=== PATIENT | male | born 1990 | race Caucasian/White ===

== ENCOUNTER → 2020-02-23 | Outpatient (CLI) | payer MEDICAID ==
--- NOTE | 2020-02-23 17:07 | CONS ---
CONSULTATION DATE OF SERVICE: 02/23/2020 A 29-year-old gentleman who has been evaluated in the [facility] for possible obstructive sleep apnea-hypopnea syndrome. HISTORY OF PRESENT ILLNESS/SLEEP WAKE EVALUATION: Patient usual sleep schedule from 10 p.m. to 8:15 am during the weekdays and on weekends from around 11 p.m. until 9 am. Sometimes he has problems with falling asleep, although no TV in bedroom. He usually sleeps on the side position. He snores loudly and has witnessed episodes of stopped breathing during sleep. He also wakes up from sleep with episodes of gasping for air. Usually, he wakes up from sleep up to 3 times. In the morning, patient wakes up tired, has episodes of irritability. [place] Sleepiness Scale is 8. Usually he does not take any naps. During the night, patient also mentioned that he has kicking with his legs. No episodes of hypnagogic hallucinations, sleep paralysis or cataplexy. PAST MEDICAL HISTORY: Positive for asthma, acid reflux. SOCIAL HISTORY: Positive for smoking, half pack a day for about 3 years, quit in 2007. Alcohol consumption occasional. FAMILY HISTORY: Sleep apnea by his father. REVIEW OF SYSTEMS: Multiple awakenings from sleep, snoring. MEDICATIONS: QVAR, inhalers. PHYSICAL EXAM: gentleman without distress, BP 110/80, HR 98, RR 15, height 5, 11, weight 242, BMI 33.7, temperature 98.5, oxygen saturation at room air 95%. OROPHARYNX: Low position of soft palate, Mallampati 3-4, wide neck 17 inches in circumference. ABDOMEN: Slightly obese. NECK: Supple, no JVD. Thyroid is not palpable. LUNGS: Clear to percussion and to auscultation. Good air exchange. No wheezing or rhonchi. HEART: S1, S2 regular. No murmurs, gallops, or rubs. EXTREMITIES: No clubbing or cyanosis. RUG SAMPLE BEVELER: Awake, alert, and oriented X3. Cranial nerves 2 to 7 intact. There is no fasciculation or atrophy. noted. No focal deficits observed. IMPRESSION: 1. Snoring, witnessed episodes of stopped breathing during the sleep, awakenings from sleep with gasping for air. Low position of soft palate, wide neck. Obstructive sleep apnea-hypopnea syndrome. 2. Mild obesity, BMI 33.7. 3. Asthma. 4. Acid reflux. 5. History of restless leg symptoms. 6. History of kicking during the sleep. Possible periodic limb movements. 7. Status post tonsillectomy. 8. Status post adenoidectomy. PLAN: 1. Polysomnography for evaluation of patient's breathing during sleep. 2. CPAP/BiPAP titration if sleep study confirms obstructive sleep apnea-hypopnea syndrome. 3. Preferable position during sleep on the side. 4. No driving if patient feels any sleepiness. 5. I will see patient for follow up visit to explain results of testing and following plan. Thank you very much for referring this patient for consultation. Sincerely, Jagjit Reece MD, PhD, FAASM Diplomat of [employer] [employer] [place] [employer] Con[employer]or Technician of [facility] [place] [id number] / BLADE: [id number] /
== END | disposition home or self-care (01) ==
LOC: SLEEP 15:51
PROVIDERS: ATTEND Internal Medicine
DX: G47.33 Obstructive sleep apnea (adult) (pediatric) (principal); J45.909 Unspecified asthma, uncomplicated; K21.9 Gastro-esophageal reflux disease without esophagitis; G25.81 Restless legs syndrome; E66.9 Obesity, unspecified; Z68.33 Body mass index [BMI] 33.0-33.9, adult; Z98.890 Other specified postprocedural states; Z90.09 Acquired absence of other part of head and neck; Z79.51 Long term (current) use of inhaled steroids; Z99.89 Dependence on other enabling machines and devices
CPT/HCPCS: 99211

== ENCOUNTER → 2020-03-08 | Outpatient (CLI) | payer MEDICAID | END | disposition home or self-care (01) | LOC: LABWHC1 16:38 | PROVIDERS: ATTEND Nurse Practitioner Family | DX: Z53.9 Procedure and treatment not carried out, unspecified reason (principal) | CPT/HCPCS: U0003; C9803 ==

== ENCOUNTER → 2020-08-23 | Outpatient (CLI) | payer MEDICAID ==
--- NOTE | 2020-08-23 14:44 | US ---
EXAMINATION TYPE: US scrotum with doppler. Grayscale and color Doppler Duplex imaging performed of t he scrotum. DATE OF EXAM: 08/23/2020 COMPARISON: NONE CLINICAL HISTORY: N50.811 Rt testicular pain. EXAM MEASUREMENTS: TESTICLES: Right Testicle: 4.8 x 2.5 x 3.4 cm Left Testicle: 4.6 x 2.3 x 3.3 cm EPIDIDYMIS HEAD: Right Epididymis: 0.9 cm, 2 small cysts noted, largest measuring 2mm. These are most suggestive of e pididymal head cysts or spermatoceles. Left Epididymis: 0.8 cm Doppler performed to assess for testicular vascularity; good bilateral color flow and waveforms are s een. There is no evidence of testicular torsion. Presence of hydroceles: No Presence of varicoceles: No IMPRESSION: 1. At least 2 right tiny epididymal head cyst versus pneumatoceles. 2. No evidence of testicular torsion, epididymitis, or orchitis.
== END | disposition home or self-care (01) ==
LOC: RADUSWWP 10:21
PROVIDERS: ATTEND Family Medicine
DX: N50.811 Right testicular pain (principal)
CPT/HCPCS: 76870; 93975

== ENCOUNTER 2021-10-04 07:33 | Inpatient (IN) | payer MEDICAID, OTHER ==
[2021-10-04] MEDS ORDERED: SODIUM CHLORIDE 0.9% 500 ML 500 ML IV ONE (08:24)
[2021-10-04] MEDS ORDERED: SODIUM CHLORIDE 0.9% 1,000 ML IV ONE (08:24)
[2021-10-04 09:11] LABS: Basophils % (A) 0 %; Eosinophils # (A) 0.2 k/uL (0-0.7); Eosinophils % (A) 2 %; HCT 44.5 % (39.0-53.0); HGB 15.6 gm/dL (13.0-17.5); Lymphocytes # (A) 2.2 k/uL (1.0-4.8); Lymphocytes % (A) 19 %; MCH 31.1 pg (25.0-35.0); MCV 88.9 fL (80.0-100.0); Mean Platelet Volume 7.4; Monocytes # (A) 0.8 k/uL (0-1.0); Monocytes % (A) 7 %; Neutrophils # (A) 8.2 k/uL (1.3-7.7); Neutrophils % (A) 71 %; Platelet Count 344 k/uL (150-450); RDW 11.7 % (11.5-15.5); WBC 11.5 k/uL (3.8-10.6)
[2021-10-04 09:13] LABS: African American GFR (CKD) >90 (>60 ml/min/1.73 sqM); Anion Gap 13 mmol/L; Blood Urea Nitrogen 21 mg/dL (9-20); Calcium 9.4 mg/dL (8.4-10.2); Carbon Dioxide 22 mmol/L (22-30); Chloride 103 mmol/L (98-107); Glucose 101 mg/dL (74-99); Non-African American GFR(CKD) >90 (>60 ml/min/1.73 sqM); Sodium 138 mmol/L (137-145)
[2021-10-04 09:27] LABS: Potassium 4.7 mmol/L (3.5-5.1)
--- NOTE | 2021-10-04 09:44 | CT ---
EXAMINATION TYPE: CT pelvis w con DATE OF EXAM: 10/04/2021 INDICATION: Rectal pain CT DLP: 1481.8 mGy.cm Automated Exposure Control for Dose Reduction was Utilized. TECHNIQUE AND CONTRAST: CT scan of the pelvis is performed with IV Contrast, patient injected with 100 mL of Isovue 300. COMPARISON: No previous CT scan is available for comparison FINDINGS: Marginally enhancing fluid density seen inseparable from the anus measuring 16 x 23 x 20 mm which cou ld represent a small perianal abscess, suboptimally assessed by this CT scan. Further MRI assessment can be considered. Mild wall thickening of the rectum, nonspecific. Millimetric perirectal lymph nodes, nonspecific. Sma ll rectal lesion cannot be excluded. Grossly unremarkable remainder of the colon. No small bowel obst ruction. Suspected hepatic steatosis. Unremarkable visualized portion of the gallbladder, spleen, pancreas, ki dneys, abdominal aorta and IVC. Unremarkable prostate and seminal vesicles. The urinary bladder is not distended. No pelvic free fluid. No aggressive bone lesion. IMPRESSION: Suspected perianal abscess as described above, please correlate clinically. Further MRI assessment ca n be considered if clinically required.
--- NOTE | 2021-10-04 10:29 | ED ---
General Adult HPI - General Chief complaint: Recheck/Abnormal Lab/Rx Stated complaint: Pain Time Seen by Provider: 10/04/21 07:55 Source: patient, RN notes reviewed Mode of arrival: ambulatory Limitations: no limitations - History of Present Illness Initial comments: 31-year-old male presents emergency department chief complaint of rectal pain. Patient states that he has been constipated recently secondary pain meds from compression fracture T9. Patient states that he had to push to have bowel movement states he felt like something was protruding. States he has normal hemorrhoids but states this felt much worse. He states he has deep rectal pain. Patient states that this is very uncomfortable. Patient states he tried some hemorrhoid cream as is using the past states that this made it worse initially. Patient denies any difficulty urinating. Patient has a fevers. - Related Data Allergies Allergy/AdvReac Type Severity Reaction Status Date / Time cefprozil [From Cefzil] AdvReac Rash/Hives Verified 10/04/21 07:43 Sulfa (Sulfonamide AdvReac Rash/Hives Verified 10/04/21 07:43 Antibiotics) Review of Systems ROS Statement: Those systems with pertinent positive or pertinent negative responses have been documented in the HPI. ROS Other: All systems not noted in ROS Statement are negative. Past Medical History Additional Past Medical History / Comment(s): T9 compression fracture Past Surgical History: Adenoidectomy, Orthopedic Surgery, Tonsillectomy Past Psychological History: No Psychological Hx Reported Smoking Status: Never smoker Past Alcohol Use History: Occasional Past Drug Use History: None Reported General Exam Limitations: no limitations General appearance: alert, in no apparent distress Head exam: Present: atraumatic, normocephalic, normal inspection Eye exam: Present: normal appearance, PERRL, EOMI. Absent: scleral icterus, conjunctival injection, periorbital swelling ENT exam: Present: normal exam, normal oropharynx, mucous membranes moist Neck exam: Present: normal inspection, full ROM. Absent: tenderness, meningismus, lymphadenopathy Respiratory exam: Present: normal lung sounds bilaterally. Absent: respiratory distress, wheezes, rales, rhonchi, stridor Cardiovascular Exam: Present: regular rate, normal rhythm, normal heart sounds. Absent: systolic murmur, diastolic murmur, rubs, gallop, clicks GI/Abdominal exam: Present: soft, normal bowel sounds. Absent: distended, tenderness, guarding, rebound, rigid Course Vital Signs 10/04/21 10/04/21 07:35 10:32 Temperature 98.2 F Pulse Rate 117 H 70 Respiratory 20 16 Rate Blood Pressure 143/88 124/74 O2 Sat by Pulse 96 99 Oximetry Medical Decision Making - Medical Decision Making Patient CT shows evidence of. No abscess. There is no drainable site at this time. Patient started on IV antibiotics. - Lab Data Result diagrams: 10/04/21 08:52 10/04/21 08:52 Lab Results 10/04/21 10/04/21 10/04/21 Range/Units 08:52 08:52 08:52 WBC 11.5 H (3.8-10.6) k/uL RBC 5.00 (4.30-5.90) m/uL Hgb 15.6 (13.0-17.5) gm/dL Hct 44.5 (39.0-53.0) % MCV 88.9 (80.0-100.0) fL MCH 31.1 (25.0-35.0) pg MCHC 35.0 (31.0-37.0) g/dL RDW 11.7 (11.5-15.5) % Plt Count 344 (150-450) k/uL MPV 7.4 Neutrophils % 71 % Lymphocytes % 19 % Monocytes % 7 % Eosinophils % 2 % Basophils % 0 % Neutrophils # 8.2 H (1.3-7.7) k/uL Lymphocytes # 2.2 (1.0-4.8) k/uL Monocytes # 0.8 (0-1.0) k/uL Eosinophils # 0.2 (0-0.7) k/uL Basophils # 0.0 (0-0.2) k/uL Sodium 138 (137-145) mmol/L Potassium 4.7 (3.5-5.1) mmol/L Chloride 103 (98-107) mmol/L Carbon Dioxide 22 (22-30) mmol/L Anion Gap 13 mmol/L BUN 21 H (9-20) mg/dL Creatinine 0.72 (0.66-1.25) mg/dL Est GFR (CKD-EPI)AfAm >90 (>60 ml/min/1.73 sqM) Est GFR (CKD-EPI)NonAf >90 (>60 ml/min/1.73 sqM) Glucose 101 H (74-99) mg/dL Plasma Lactic Acid Michael 1.5 (0.7-2.0) mmol/L Calcium 9.4 (8.4-10.2) mg/dL Disposition Clinical Impression: Perianal abscess Disposition: ADMITTED IP TO THIS HOSP Condition: Fair Referrals: Dulce Wynne MD [Primary Care Provider] - 1-2 days Time of Disposition: 10:39
[2021-10-04] MEDS ORDERED: NALOXONE 0.4 MG/ML 1 ML VIAL IV PRN (10:41)
[2021-10-04] MEDS ORDERED: ONDANSETRON 4 MG/2 ML VIAL IVP PRN (10:41)
[2021-10-04] MEDS ORDERED: PIPERACILLIN-TAZOBACTAM 3.375 GM in SODIUM CHLORIDE 0.9% 100 ML IVPB STA (10:41)
[2021-10-04] MEDS: HYDROcodone/APAP 5-325MG 1 EACH TAB PO PRN ×3 (12:31→22:07)
[2021-10-04] MEDS: SODIUM CHLORIDE 0.9% 1,000 ML IV SCH (12:32)
--- NOTE | 2021-10-04 13:57 | P.GSHP ---
History of Present Illness H&P Date: 10/04/21 CHIEF COMPLAINT: Perianal abscess HISTORY OF PRESENT ILLNESS: This is a 31-year-old male who presented to the hospital after 4 days of pain around the perirectal area. He initially thought it was hemorrhoids due to him being constipated and being pain medication. But she had no improvement with the hemorrhoid cream. Computed tomography scan pelvis suspected perianal abscess measuring 16 x 23 x 20 mm. Patient reports no drainage from the abscess. Denies any fever chills or sweats. He has never had a perianal abscess 4. He was tachycardic on admission white count 11.5. Currently on antibiotics. PAST MEDICAL HISTORY: T9 compression fracture PAST SURGICAL HISTORY: See list. MEDICATIONS: See list. ALLERGIES: See list. SOCIAL HISTORY: No illicit drug use. REVIEW OF SYSTEMS: CONSTITUTIONAL: Denies fever or chills. HEENT: Denies blurred vision, vision changes, or eye pain. Denies hemoptysis CARDIOVASCULAR: Denies chest pain or pressure. RESPIRATORY: No shortness of breath. GASTROINTESTINAL: Denies abdominal pain. HEMATOLOGIC: Denies bleeding disorders. GENITOURINARY: Denies any blood in urine or increased urinary frequency. SKIN: Denies pruitis. Denies rash. PHYSICAL EXAM: VITAL SIGNS: Reviewed GENERAL: Well-developed in no acute distress. HEENT: No sclera icterus. Extraocular movements grossly intact. Moist buccal mucosa. Head is atraumatic, normocephalic. No nasal drainage. ABDOMEN: Soft. Nondistended. Nontender. Patient has tenderness with palpa tion of the perianal area. It is soft. There is inflammation noted at the anterior aspect of the anus. No drainage. No fluctuance noted. Area is moist. NEUROLOGIC: Alert and oriented. Cranial nerves II through XII grossly intact. LABORATORY DATA: WBC 11.5 Hgb 15.6 platelets 344 Sodium 138 potassium 4.7 creatinine 0.72 lactic acid 1.5 IMAGING: Computed tomography scan results as stated above. ASSESSMENT: 1. Perianal abscess PLAN: -Continue to observe -Continue IV antibiotics -Continue pain medication as needed -Continue regular diet -Continue IV fluids Physician [employer] note has been reviewed by physician. Signing provider agrees with the documented findings, assessment, and plan of care. Past Medical History Additional Past Medical History / Comment(s): T9 compression fracture Past Surgical History: Adenoidectomy, Orthopedic Surgery, Tonsillectomy Past Psychological History: No Psychological Hx Reported Smoking Status: Never smoker Past Alcohol Use History: Occasional Past Drug Use History: None Reported Medications and Allergies Home Medications Medication Instructions Recorded Confirmed Type Albuterol Sulfate [Albuterol 2 puff INHALATION RT-Q4H PRN 10/04/21 10/04/21 History Sulfate Hfa] Cyclobenzaprine [Flexeril] 10 mg PO BID PRN 10/04/21 10/04/21 History Hydrocodone/Acetaminophen 1 tab PO Q4H PRN 10/04/21 10/04/21 History [Hydrocodone/Acetaminophen 7.5-325] Ibuprofen [Motrin] 800 mg PO Q8H PRN 10/04/21 10/04/21 History Ketorolac Tromethamine 10 mg PO QID PRN MDD MAX 40mg per 10/04/21 10/04/21 History day/ 5 days durat Lidocaine 5% Patch [Lidoderm] 1 patch TOPICAL DAILY 10/04/21 10/04/21 History Phenyleph/Pramoxin/Glycr/W.pet 1 applic RECTAL QID PRN 10/04/21 10/04/21 History [Preparation H Cream] Sennosides [Senokot] 8.6 mg PO DAILY PRN 10/04/21 10/04/21 History diazePAM [Valium] 5 mg PO TID PRN 10/04/21 10/04/21 History Allergies Allergy/AdvReac Type Severity Reaction Status Date / Time cefprozil [From Cefzil] Allergy Rash/Hives Verified 10/04/21 11:31 Sulfa (Sulfonamide Allergy Rash/Hives Verified 10/04/21 11:31 Antibiotics) Surgical - Exam Vital Signs Temp Pulse Resp BP Pulse Ox 98.2 F 117 H 20 143/88 96 10/04/21 07:35 10/04/21 07:35 10/04/21 07:35 10/04/21 07:35 10/04/21 07:35 Results - Labs 10/04/21 08:52 10/04/21 08:52 Abnormal Lab Results - Last 24 Hours (Table) 10/04/21 10/04/21 Range/Units 08:52 08:52 WBC 11.5 H (3.8-10.6) k/uL Neutrophils # 8.2 H (1.3-7.7) k/uL BUN 21 H (9-20) mg/dL Glucose 101 H (74-99) mg/dL Diabetes panel 10/04/21 Range/Units 08:52 Sodium 138 (137-145) mmol/L Potassium 4.7 (3.5-5.1) mmol/L Chloride 103 (98-107) mmol/L Carbon Dioxide 22 (22-30) mmol/L BUN 21 H (9-20) mg/dL Creatinine 0.72 (0.66-1.25) mg/dL Glucose 101 H (74-99) mg/dL Calcium 9.4 (8.4-10.2) mg/dL Calcium panel 10/04/21 Range/Units 08:52 Calcium 9.4 (8.4-10.2) mg/dL Pituitary panel 10/04/21 Range/Units 08:52 Sodium 138 (137-145) mmol/L Potassium 4.7 (3.5-5.1) mmol/L Chloride 103 (98-107) mmol/L Carbon Dioxide 22 (22-30) mmol/L BUN 21 H (9-20) mg/dL Creatinine 0.72 (0.66-1.25) mg/dL Glucose 101 H (74-99) mg/dL Calcium 9.4 (8.4-10.2) mg/dL Adrenal panel 10/04/21 Range/Units 08:52 Sodium 138 (137-145) mmol/L Potassium 4.7 (3.5-5.1) mmol/L Chloride 103 (98-107) mmol/L Carbon Dioxide 22 (22-30) mmol/L BUN 21 H (9-20) mg/dL Creatinine 0.72 (0.66-1.25) mg/dL Glucose 101 H (74-99) mg/dL Calcium 9.4 (8.4-10.2) mg/dL
[2021-10-04] MEDS: PIPERACILLIN-TAZOBACTAM 3.375 GM in SODIUM CHLORIDE 0.9% 100 ML IVPB SCH (17:10)
[2021-10-04] MEDS: HYDROmorphone 0.5 MG/0.5 ML SYRINGE IVP PRN (18:23)
[2021-10-04] MEDS: DOCUSATE 100 MG CAP PO SCH (22:08)
[2021-10-05] MEDS: PIPERACILLIN-TAZOBACTAM 3.375 GM in SODIUM CHLORIDE 0.9% 100 ML IVPB SCH ×3 (01:15→16:16)
[2021-10-05] MEDS: HYDROmorphone 0.5 MG/0.5 ML SYRINGE IVP PRN ×2 (04:09→07:50)
[2021-10-05] MEDS: SODIUM CHLORIDE 0.9% 1,000 ML IV SCH ×2 (07:44→07:55)
[2021-10-05] MEDS: DOCUSATE 100 MG CAP PO SCH ×2 (07:51→19:42)
[2021-10-05 08:46] LABS: Basophils # (A) 0.03 X 10*3/uL (0.00-0.10); Basophils % (A) 0.3 %; Eosinophils # (A) 0.08 X 10*3/uL (0.04-0.35); Eosinophils % (A) 0.7 %; HCT 38.9 % (39.6-50.0); HGB 12.9 g/dL (13.0-17.0); Immature Grans, Automated 0.4 %; Lymphocytes # (A) 1.69 X 10*3/uL (0.90-5.00); MCH 29.3 pg (27.0-32.0); MCHC 33.2 g/dL (32.0-37.0); MCV 88.2 fL (80.0-97.0); Mean Platelet Volume 9.9 fL (9.5-12.2); Monocytes # (A) 0.81 X 10*3/uL (0.20-1.00); Monocytes % (A) 7.2 %; NRBC Per 100 WBC 0 /100 WBCS (0.0-0.0); Neutrophils % (A) 76.4 %; Platelet Count 288 X 10*3/uL (140-440); RBC 4.41 X 10*6/uL (4.40-5.60); RDW 11.3 % (11.5-14.5); WBC 11.25 X 10*3/uL (4.50-10.00)
[2021-10-05 08:50] LABS: BUN/Creat Ratio 13.88 Ratio (12.00-20.00); Blood Urea Nitrogen 11.1 mg/dL (9.0-27.0); Calcium 8.9 mg/dL (8.7-10.3); Non-African American GFR(CKD) 117.4 (60.0-200.0); Potassium 4.3 mmol/L (3.5-5.5)
[2021-10-05] MEDS ORDERED: HYDROmorphone 0.5 MG/0.5 ML SYRINGE IVP PRN (10:26)
--- NOTE | 2021-10-05 10:52 | P.PN ---
Progress Note - Text Progress Note Date: 10/05/21 The patient some complaints of intermittent pain. He says most the time that he feels comfortable however the pain does create some pressure in his rectum periodically. He denies any drainage. On exam vital signs appear stable. Abdomen is soft. Examination anus reveals no obvious abscess or cellulitic area. There is no induration palpated Small pararectal abscess. Patient received IV antibiotic. If there is any changes condition undergo incision and drainage.
[2021-10-05] MEDS: HYDROcodone/APAP 5-325MG 1 EACH TAB PO PRN ×3 (12:00→22:15)
[2021-10-05] MEDS: HYDROmorphone 1 MG/ML 1 ML SYRINGE IVP PRN (19:41)
[2021-10-06] MEDS: PIPERACILLIN-TAZOBACTAM 3.375 GM in SODIUM CHLORIDE 0.9% 100 ML IVPB SCH ×3 (00:16→16:30)
[2021-10-06] MEDS: HYDROmorphone 1 MG/ML 1 ML SYRINGE IVP PRN ×3 (01:28→11:53)
[2021-10-06] MEDS: HYDROcodone/APAP 5-325MG 1 EACH TAB PO PRN (04:14)
[2021-10-06] MEDS: SODIUM CHLORIDE 0.9% 1,000 ML IV SCH ×2 (04:15→16:30)
[2021-10-06] MEDS: DOCUSATE 100 MG CAP PO SCH ×2 (08:23→20:03)
[2021-10-06] MEDS ORDERED: HYDROmorphone 1 MG/ML 1 ML SYRINGE IVP STA (11:18)
--- NOTE | 2021-10-06 11:42 | P.PN ---
Progress Note - Text Progress Note Date: 10/06/21 Patient still has complaints of perianal pain. He states he now feels some swelling near his anus. Today on exam in the posterior position of 6, position there is some induration and swelling of the anus. The patient will be undergoing incision and drainage of perirectal abscess today.
[2021-10-06] MEDS ORDERED: LIDOCAINE 1%-EPI 1:100,000 20 ML VIAL SQ ONE (12:00)
[2021-10-06] MEDS ORDERED: SENNOSIDES 8.6 MG TAB PO PRN (14:41)
[2021-10-06] MEDS ORDERED: [UNRECOGNIZED DRUG - OTHER] RECTAL PRN (14:41)
[2021-10-06] MEDS ORDERED: diazePAM 5 MG TAB PO PRN (14:41)
[2021-10-06] MEDS ORDERED: ALBUTEROL NEBULIZED 2.5 MG/3 ML INHALATION PRN (14:41)
[2021-10-06] MEDS ORDERED: CYCLOBENZAPRINE 10 MG TAB PO PRN (14:41)
[2021-10-06] MEDS ORDERED: HYDROcodone/APAP 7.5-325MG 1 EACH TAB PO PRN (14:41)
--- NOTE | 2021-10-06 14:42 | P.CONS ---
History of Present Illness - Reason for Consult Consult date: 10/06/21 - Chief Complaint medical management - History of Present Illness 31-year-old man with a history of thoracic compression fracture after a fall presented for pain in the rectal area. Medicine was consulted by general surgery for medical management. Patient was noted to have perianal rectal absce ss, drained today. Patient was appropriately on Zosyn. Cultures are pending. Patient has no additional complaints outside of pain in the anal area. Denies fevers, chills, nausea, vomiting, chest pain, palpitations, syncope, presyncope, cough, dyspnea, abdominal pain, constipation, diarrhea, dysuria, numbness/weakness. Upon my evaluation, patient was afebrile, 121/84, heart rate 100, 94% on room air. Labs from 10/05 show mild leukocytosis to 11.25, otherwise unremarkable. Chemistries are unremarkable. Pelvis CT was reviewed and shows perianal abscess of 16 x 23 x 20 mm. All Systems reviewed and pertinent positives and negatives noted in HPI, all other symptoms are negative Gen: in no apparent distress, resting comfortably in bed Eyes: PERRL, no scleral injection or icterus HENT: normocephalic, atraumatic, good hearing acuity, moist mucous membranes Neck: no tracheal deviation, full range of motion Resp: good air exchange, breathing comfortably with no accessory muscle use, no tactile fremitus, clear to auscultation bilaterally CVS: good distal perfusion x 4, no pitting edema, regular rate and rhythm GI: soft, no tenderness to palpation, periumbilical area, ND, no hepatosplen omegaly : no suprapubic tenderness, no CVAT, cotter catheter not present MSK: no clubbing, no cyanosis, no noted contractures of extremities Skin: no noted rashes, petechiae; temperature of skin is appropriate Neuro: moving all extremities without signs of weakness, CN II-XII intact Psych: cooperative, euthymic mood, insight and judgment intact Labs and imaging as above Assessment/plan: Perianal abscess -Agree with Zosyn -Follow up cultures -Pain control -Stool softener History of thoracic compression fracture -Home medications reviewed and reconciled DVT prophylaxis with enoxaparin daily Past Medical History Additional Past Medical History / Comment(s): T9 compression fracture History of Any Multi-Drug Resistant Organisms: None Reported Past Surgical History: Adenoidectomy, Orthopedic Surgery, Tonsillectomy Past Psychological History: No Psychological Hx Reported Smoking Status: Never smoker Past Alcohol Use History: Occasional Past Drug Use History: None Reported Medications and Allergies Home Medications Medication Instructions Recorded Confirmed Type Albuterol Sulfate [Albuterol 2 puff INHALATION RT-Q4H PRN 10/04/21 10/04/21 Hist ory Sulfate Hfa] Cyclobenzaprine [Flexeril] 10 mg PO BID PRN 10/04/21 10/04/21 History Hydrocodone/Acetaminophen 1 tab PO Q4H PRN 10/04/21 10/04/21 History [Hydrocodone/Acetaminophen 7.5-325] Ibuprofen [Motrin] 800 mg PO Q8H PRN 10/04/21 10/04/21 History Ketorolac Tromethamine 10 mg PO QID PRN MDD MAX 40mg per 10/04/21 10/04/21 History day/ 5 days durat Lidocaine 5% Patch [Lidoderm] 1 patch TOPICAL DAILY 10/04/21 10/04/21 History Phenyleph/Pramoxin/Glycr/W.pet 1 applic RECTAL QID PRN 10/04/21 10/04/21 History [Preparation H Cream] Sennosides [Senokot] 8.6 mg PO DAILY PRN 10/04/21 10/04/21 History diazePAM [Valium] 5 mg PO TID PRN 10/04/21 10/04/21 History Allergies Allergy/AdvReac Type Severity Reaction Status Date / Time cefprozil [From Cefzil] Allergy Rash/Hives Verified 10/04/21 11:31 Sulfa (Sulfonamide Allergy Rash/Hives Verified 10/04/21 11:31 Antibiotics) Physical Exam Osteopathic Statement: *. No significant issues noted on an osteopathic structural exam other than those noted in the History and Physical/Consult. Vitals: Vital Signs Temp Pulse Resp BP BP Pulse Ox 10/06/21 14:00 98.4 F 100 17 121/84 94 L 10/06/21 07:40 98.4 F 105 H 17 141/93 93 L 10/06/21 02:55 98.0 F 102 H 18 126/77 95 10/05/21 20:00 18 10/05/21 19:40 99.0 F 104 H 18 130/86 95 Intake and Output 10/05/21 10/06/21 10/06/21 22:59 06:59 14:59 Other: Voiding Method Urinal Urinal # Voids 1 3 Results CBC & Chem 7: 10/05/21 04:51 10/05/21 04:51 Labs: Microbiology - Last 24 Hours (Table) 10/04/21 11:20 Blood Culture - Preliminary Blood No Growth after 48 hours 10/04/21 11:35 Blood Culture Gram Stain - Preliminary Blood Blood Culture - Preliminary Coagulase Negative Staph
[2021-10-06] MEDS ORDERED: ETODOLAC 400 MG TAB PO PRN (16:00)
[2021-10-06] MEDS: IBUPROFEN 800 MG TAB PO PRN (20:03)
[2021-10-07] MEDS: PIPERACILLIN-TAZOBACTAM 3.375 GM in SODIUM CHLORIDE 0.9% 100 ML IVPB SCH ×3 (00:03→15:55)
[2021-10-07] MEDS: SODIUM CHLORIDE 0.9% 1,000 ML IV SCH ×2 (05:54→13:24)
[2021-10-07] MEDS: ENOXAPARIN 40 MG/0.4 ML SYRINGE SQ SCH (08:20)
[2021-10-07] MEDS: DOCUSATE 100 MG CAP PO SCH ×2 (08:20→20:13)
[2021-10-07] MEDS: LIDOCAINE 5% PATCH TOPICAL SCH (08:21)
--- NOTE | 2021-10-07 10:25 | P.PN ---
Progress Note - Text Progress Note Date: 10/07/21 The patient underwent incision and drainage of perirectal abscess yesterday. He states he feels much better today. The area is draining. On exam vital signs are stable. Abdomen soft. Exam his anus shows decreased swelling. Patient to receive IV antibiotics. Despite discharged home hopefully tomorrow.
--- NOTE | 2021-10-07 10:26 | P.OP ---
Date of Procedure: 10/06/21 Preoperative Diagnosis: Perirectal abscess Postoperative Diagnosis: Perirectal abscess Procedure(s) Performed: Incision and drainage of perirectal abscess Anesthesia: local Surgeon: Calvin Burton Estimated Blood Loss (ml): 5 Pathology: none sent Condition: stable Disposition: PACU Description of Procedure: The patient's placed on his bed in the lateral position. He was given 2 mg Dilaudid for IV analgesia. The patient is prepped and draped usual fashion. The anus unless has 1% local Xylocaine with epinephrine. The abscess was lanced using 11 blade. A prostate 5 mL of purulent fluid was removed. Patient top she will well sterile dressings was applied.
--- NOTE | 2021-10-07 14:30 | P.PN ---
Subjective Progress Note Date: 10/07/21 Patient is doing well. Reports total resolution of pain. Has good appetite. Plan is for 1 more day of IV antibiotics and then discharged tomorrow. Gen: in no apparent distress, resting comfortably in bed Eyes: PERRL, no scleral injection or icterus HENT: normocephalic, atraumatic, good hearing acuity, moist mucous membranes Neck: no tracheal deviation, full range of motion Resp: good air exchange, breathing comfortably with no accessory muscle use, no tactile fremitus, clear to auscultation bilaterally CVS: good distal perfusion x 4, no pitting edema, regular rate and rhythm GI: soft, no tenderness to palpation, periumbilical area, ND, no hepatosplenomegaly : no suprapubic tenderness, no CVAT, cotter catheter not present MSK: no clubbing, no cyanosis, no noted contractures of extremities Skin: no noted rashes, petechiae; temperature of skin is appropriate Neuro: moving all extremities without signs of weakness, CN II-XII intact Psych: cooperative, euthymic mood, insight and judgment intact Labs and imaging as above Assessment/plan: Perianal abscess -Agree with Zosyn, on discharge recommend clindamycin or Cipro/Flagyl or Doxy/Augmentin -Follow up cultures -Pain control -Stool softener History of thoracic compression fracture -Home medications reviewed and reconciled DVT prophylaxis with enoxaparin daily Objective - Vital Signs Vital signs: Vital Signs Temp 98.2 F 10/07/21 13:44 Pulse 104 H 10/07/21 13:44 Resp 16 10/07/21 13:44 BP 124/81 10/07/21 13:44 Pulse Ox 93 L 10/07/21 13:44 FiO2 Intake & Output 10/06/21 10/07/21 10/07/21 18:59 06:59 18:59 Intake Total 968 Output Total 800 Balance 168 Intake: Intake, IV Titration 850 Amount Piperacillin-Tazobactam 3 100 .375 gm In Sodium Chloride 0.9% 100 ml @ 25 mls/hr IVPB Q8HR [facility] Rx# :[id number] Sodium Chloride 0.9% 1, 750 000 ml @ 75 mls/hr IV . [id number] [facility] Rx#:[id number] Oral 118 Output: Urine 800 Other: Voiding Method Urinal Urinal # Voids 3 - Labs CBC & Chem 7: 10/05/21 04:51 10/05/21 04:51 Labs: Microbiology - Last 24 Hours (Table) 10/04/21 11:20 Blood Culture - Preliminary Blood No Growth after 72 hours
[2021-10-07] MEDS: IBUPROFEN 800 MG TAB PO PRN (20:13)
[2021-10-08] MEDS: PIPERACILLIN-TAZOBACTAM 3.375 GM in SODIUM CHLORIDE 0.9% 100 ML IVPB SCH ×2 (00:57→09:07)
[2021-10-08 07:42] VITALS: BP 123/87; PULSE 92; RESP 16; TEMP 98.7
[2021-10-08] MEDS: DOCUSATE 100 MG CAP PO SCH (09:07)
[2021-10-08] MEDS: ENOXAPARIN 40 MG/0.4 ML SYRINGE SQ SCH (09:07)
[2021-10-08] MEDS: LIDOCAINE 5% PATCH TOPICAL SCH (09:08)
--- NOTE | 2021-10-08 09:54 | P.PN ---
Subjective Progress Note Date: 10/08/21 Patient is doing well. Reports total resolution of pain. Has good appetite. Plan is for 1 more day of IV antibiotics and then discharged tomorrow. Gen: in no apparent distress, resting comfortably in bed Eyes: PERRL, no scleral injection or icterus HENT: normocephalic, atraumatic, good hearing acuity, moist mucous membranes Neck: no tracheal deviation, full range of motion Resp: good air exchange, breathing comfortably with no accessory muscle use, no tactile fremitus, clear to auscultation bilaterally CVS: good distal perfusion x 4, no pitting edema, regular rate and rhythm GI: soft, no tenderness to palpation, periumbilical area, ND, no hepatosplenomegaly : no suprapubic tenderness, no CVAT, cotter catheter not present MSK: no clubbing, no cyanosis, no noted contractures of extremities Skin: no noted rashes, petechiae; temperature of skin is appropriate Neuro: moving all extremities without signs of weakness, CN II-XII intact Psych: cooperative, euthymic mood, insight and judgment intact Labs and imaging as above Assessment/plan: Perianal abscess -Agree with Zosyn, on discharge recommend clindamycin or Cipro/Flagyl or Doxy/Augmentin -Follow up cultures -Pain control -Stool softener History of thoracic compression fracture -Home medications reviewed and reconciled DVT prophylaxis with enoxaparin daily Objective - Vital Signs Vital signs: Vital Signs Temp 98.7 F 10/08/21 07:39 Pulse 92 10/08/21 07:39 Resp 16 10/08/21 07:39 BP 123/87 10/08/21 07:39 Pulse Ox 95 10/08/21 07:39 FiO2 Intake & Output 10/07/21 10/08/21 10/08/21 18:59 06:59 18:59 Other: # Voids 1 2 - Labs CBC & Chem 7: 10/05/21 04:51 10/05/21 04:51 Labs: Microbiology - Last 24 Hours (Table) 10/04/21 11:20 Blood Culture - Preliminary Blood No Growth after 72 hours
--- NOTE | 2021-10-08 10:28 | P.DS ---
Providers Date of admission: 10/04/21 10:38 Expected date of discharge: 10/08/21 Attending physician: Calvin Burton Consults: 10/06/21 12:21 Consult Physician Routine Consulting Provider: Jun Soliman Consult Reason/Comments: medical management Do you want consulting provider notified?: Yes Primary care physician: [facility] Course: Is a 31-year-old male who is minimal possible abscess. Patient underwent incision and drainage. His postoperative arrival. Please see chart for details. Procedures: Incision and drainage of perirectal abscess Patient Condition at Discharge: Fair Plan - Discharge Summary Discharge Rx Participant: No New Discharge Prescriptions: Continue diazePAM [Valium] 5 mg PO TID PRN PRN Reason: MUSCLE SPASMS Sennosides [Senokot] 8.6 mg PO DAILY PRN PRN Reason: Constipation Ketorolac Tromethamine 10 mg PO QID PRN MDD MAX 40mg per day/ 5 days durat PRN Reason: Muscle Pain Ibuprofen [Motrin] 800 mg PO Q8H PRN PRN Reason: Pain Hydrocodone/Acetaminophen [Hydrocodone/Acetaminophen 7.5-325] 1 tab PO Q4H PRN PRN Reason: Pain Lidocaine 5% Patch [Lidoderm 5% Patch] 1 patch TOPICAL DAILY Cyclobenzaprine [Flexeril] 10 mg PO BID PRN PRN Reason: Muscle Pain Albuterol Sulfate [Albuterol Sulfate Hfa] 2 puff INHALATION RT-Q4H PRN PRN Reason: Shortness Of Breath Phenyleph/Pramoxin/Glycr/W.pet [Preparation H Cream] 1 applic RECTAL QID PRN PRN Reason: Pain Discharge Medication List Albuterol Sulfate [Albuterol Sulfate Hfa] 2 puff INHALATION RT-Q4H PRN 10/04/21 [History] Cyclobenzaprine [Flexeril] 10 mg PO BID PRN 10/04/21 [History] Hydrocodone/Acetaminophen [Hydrocodone/Acetaminophen 7.5-325] 1 tab PO Q4H PRN 10/04/21 [History] Ibuprofen [Motrin] 800 mg PO Q8H PRN 10/04/21 [History] Ketorolac Tromethamine 10 mg PO QID PRN MDD MAX 40mg per day/ 5 days durat 10/04/21 [History] Lidocaine 5% Patch [Lidoderm 5% Patch] 1 patch TOPICAL DAILY 10/04/21 [History] Phenyleph/Pramoxin/Glycr/W.pet [Preparation H Cream] 1 applic RECTAL QID PRN 10/04/21 [History] Sennosides [Senokot] 8.6 mg PO DAILY PRN 10/04/21 [History] diazePAM [Valium] 5 mg PO TID PRN 10/04/21 [History] Follow up Appointment(s)/Referral(s): Dulce Wynne MD [Primary Care Provider] - [facility] - 1 Week [facility] [NON-STAFF] - 1 Week [facility], [REFERRING] - 1 Week Patient Instructions/Handouts: Rectal Abscess (DC), Abscess Incision and Drainage (DC)
== END 2021-10-08 11:20 | disposition home health service (06) | DRG 346 ==
LOC: EC 07:33 → 4SSUR 10:38 → 6NMEDSUR 17:31
PROVIDERS: ADMIT Surgery; ATTEND Surgery
PROC: 0D9P0ZZ Drainage of Rectum, Open Approach (ICD-10-PCS; principal; 2021-10-06)
DX: K61.2 Anorectal abscess (principal); B95.7 Other staphylococcus as the cause of diseases classified elsewhere; K59.03 Drug induced constipation; D72.829 Elevated white blood cell count, unspecified; K64.9 Unspecified hemorrhoids; R00.0 Tachycardia, unspecified; T50.995A Adverse effect of other drugs, medicaments and biological substances, initial encounter; W19.XXXS Unspecified fall, sequela; S22.070S Wedge compression fracture of T9-T10 vertebra, sequela; Z88.2 Allergy status to sulfonamides; Z88.1 Allergy status to other antibiotic agents; Z90.89 Acquired absence of other organs
CPT/HCPCS: 36415; 72193; 80048; 83605; 85025; 87040; 96361; 96365; 96366; 99284

== ENCOUNTER → 2021-10-25 | Outpatient (CLI) | payer MEDICAID ==
--- NOTE | 2021-10-27 05:33 | MR ---
EXAMINATION TYPE: MR thoracic spine wo con DATE OF EXAM: 10/25/2021 COMPARISON: CT scan 10/25/2021 HISTORY: WEDGE FX T9-T10 VERTEBRA Multiplanar multi echo imaging of the thoracic spine with no contrast. Thoracic vertebrae have overall fairly normal alignment. There is anterior wedging of T9 vertebra 20% . There is also slight wedging of T8 vertebra 10%. There is some mild biconcave change of the T11 suzie tebra. There is no thoracic paraspinal mass. No thoracic spinal stenosis. No evidence of a burst frac ture. Thoracic spinal cord has normal signal pattern. There is no Edema. The posterior elements are i ntact. There is no significant edema seen in the thoracic vertebral bodies. No focal bone destruction. IMPRESSION: There are mild compression fractures of T8 and T9 vertebral bodies consistent with osteoporosis. Ther e is some progression of the wedging compared to CT scan of 09/22/2021. No significant bone edema. No spinal stenosis.
== END | disposition home or self-care (01) ==
LOC: RADMRIMAIN 07:49
PROVIDERS: ATTEND Family Medicine
DX: M48.54XA Collapsed vertebra, not elsewhere classified, thoracic region, initial encounter for fracture (principal); M81.0 Age-related osteoporosis without current pathological fracture
CPT/HCPCS: 72146

== ENCOUNTER → 2021-11-01 | Outpatient (CLI) | payer MEDICAID ==
[2021-11-01 15:53] LABS: African American GFR (CKD) >90 (>60 ml/min/1.73 sqM); Blood Urea Nitrogen 16 mg/dL (9-20); Non-African American GFR(CKD) >90 (>60 ml/min/1.73 sqM)
--- NOTE | 2021-11-01 16:41 | CT ---
EXAMINATION TYPE: CT pelvis w con DATE OF EXAM: 11/01/2021 COMPARISON: 10/04/2021 INDICATION: ANAL ABSCESS DLP: 1743.0 mGycm, Automated exposure control for dose reduction was used. CONTRAST: 100ml mL of Isovue 300. Study performed with Oral Contrast TECHNIQUE: Axial images were obtained from above the iliac crests to the pubic rami in the axial plan e at 5 mm thick sections. Reconstructed images are reviewed on the computer in the coronal plane. FINDINGS: CT PELVIS: Loops of bowel within the abdomen and pelvis are normal. There are loops of bowel which are incom pletely distended or lack oral contrast limiting their evaluation. Appendix: Normal as visualized. Urinary bladder: Normal. Genitourinary structures: Prostate is unremarkable. Osseous structures: No suspicious lytic or sclerotic lesions. No suspicious perirectal or perianal abscess is identified. No phlegmon formation is evident. Delayed images were obtained which remain unremarkable. Subcutaneous tissues appear normal COMPARISON: Previous 1.6 x 2.3 cm hypoechoic area in the perianal region is not identified on the cur rent exam. IMPRESSIONS: 1. No suspicious perianal abscess radiographically apparent.
== END | disposition home or self-care (01) ==
LOC: RADCTMAIN 14:18
PROVIDERS: ATTEND Surgery
DX: K61.0 Anal abscess (principal)
CPT/HCPCS: 82565; 84520; 72193; 36415; Q9967

== ENCOUNTER 2021-11-29 10:02 | Day surgery (SDC) | payer MEDICAID, OTHER ==
[2021-11-27 10:51] VITALS: BMI 33.9
[~2021-11-29 10:02] MED LIST: LACTATED RINGERS 1,000 ML IV SCH; LIDOCAINE 1% (10MG/ML) FOR IV START INTRADERMA PRN
[2021-11-29 10:26] VITALS: RESP 16; TEMP 97.5
[2021-11-29] MEDS ORDERED: LACTATED RINGERS 1,000 ML IV ONE (10:30)
[2021-11-29] MEDS ORDERED: PROPOFOL 10 MG/ML 20 ML VIAL IV ONE (10:55)
--- NOTE | 2021-11-29 11:08 | P.GSHP ---
History of Present Illness H&P Date: 11/29/21 Chief Complaint: History of rectal abscess Is a 28-year-old male presents today for screening colonoscopy. Patient has history of rectal abscess. Past Medical History Past Medical History: GERD/Reflux, Hyperlipidemia Additional Past Medical History / Comment(s): T9 compression fracture, September 22. Hemorrhoids. Rectal pain, perianal abcess lanced and drained. History of Any Multi-Drug Resistant Organisms: None Reported, MRSA Date of last positivie culture/infection: 2016 MDRO Source:: "can't remember" Past Surgical History: Adenoidectomy, Orthopedic Surgery, Tonsillectomy Additional Past Surgical History / Comment(s): Plate and bolt in right hand, bolt in bilateral ankles. Past Anesthesia/Blood Transfusion Reactions: No Reported Reaction Past Psychological History: No Psychological Hx Reported Smoking Status: Former smoker Past Alcohol Use History: Occasional Additional Past Alcohol Use History / Comment(s): Quit smoking 12 yrs ago. Past Drug Use History: None Reported - Past Family History Mother Family Medical History: No Reported History Medications and Allergies Home Medications Medication Instructions Recorded Confirmed Type Phenyleph/Pramoxin/Glycr/W.pet 1 applic RECTAL QID PRN 10/04/21 11/29/21 History [Preparation H Cream] Omeprazole [PriLOSEC] 40 mg PO 1200 11/27/21 11/29/21 History Allergies Allergy/AdvReac Type Severity Reaction Status Date / Time cefprozil [From Cefzil] Allergy Rash/Hives Verified 11/29/21 10:27 Sulfa (Sulfonamide Allergy Rash/Hives Verified 11/29/21 10:27 Antibiotics) Surgical - Exam Vital Signs Temp Pulse Resp BP Pulse Ox 97.5 F L 99 16 130/92 99 11/29/21 10:20 11/29/21 10:20 11/29/21 10:20 11/29/21 10:20 11/29/21 10:20 - General well developed, well nourished, no distress - Eyes PERRL - ENT normal pinna - Neck no masses - Respiratory normal expansion - Cardiovascular Rhythm: regular - Abdomen Abdomen: soft, non tender Assessment and Plan Assessment: History of rectal abscess. Patient undergo screening colonoscopy.
--- NOTE | 2021-11-29 11:09 | P.OP ---
Date of Procedure: 11/29/21 Preoperative Diagnosis: History of perirectal abscess Screening colonoscopy Postoperative Diagnosis: Normal colonoscopy Procedure(s) Performed: Colonoscopy Anesthesia: MAC Surgeon: Calvin Burton Pathology: none sent Condition: stable Disposition: PACU Description of Procedure: PROCEDURE: The patient was placed on the endoscopy table in the lateral position. Digital rectal examination was performed which revealed no abnormalities. The prostate was symmetrical without nodules. Flexible colonoscope was then placed in the patient's anus and passed throughout the entire colon. The ileocecal valve was visualized. The cecum, ascending, transverse, descending and sigmoid colon were normal. The rectum was normal as well. There were no masses, polyps or diverticula noted in the entire colon. SUMMARY OF FINDINGS: Normal colonoscopy.
[2021-11-29 11:28] VITALS: BP 117/79; PULSE 80
== END 2021-11-29 12:15 | disposition home or self-care (01) ==
LOC: ORWHC2ENDO 10:02
PROVIDERS: ATTEND Surgery
DX: K61.1 Rectal abscess (principal); K21.9 Gastro-esophageal reflux disease without esophagitis; E78.5 Hyperlipidemia, unspecified; K64.9 Unspecified hemorrhoids; Z86.14 Personal history of Methicillin resistant Staphylococcus aureus infection; Z98.890 Other specified postprocedural states; Z87.891 Personal history of nicotine dependence; Z79.899 Other long term (current) drug therapy; Z88.1 Allergy status to other antibiotic agents; Z88.2 Allergy status to sulfonamides
CPT/HCPCS: 45378; J2704

== ENCOUNTER → 2022-01-21 | Outpatient (CLI) | payer OTHER ==
--- NOTE | 2022-01-21 08:02 | CT ---
EXAMINATION TYPE: CT thoracic spine wo con DATE OF EXAM: 01/21/2022 COMPARISON: Thoracic spine x-ray November 30, 2021 and older studies. HISTORY: Fx of t spine CT DLP: 1416.8 mGycm Automated exposure control for dose reduction was used. FINDINGS: There is redemonstration of S-shaped scoliotic curvature on coronal images being but subtle convex do wnward in the mid thoracic spine and levoconvex in curvature centered in the lower thoracic spine. Th ere is persistent mild slight loss involving the superior anterior T9 endplate estimated near 20%. Mi ld anterior wedging of the T8 vertebra estimated near 10% is also present. No acute displaced fractur es are seen. No significant change from recent MRI. Spinal canal is grossly preserved. Visualized rib s are intact bilaterally. IMPRESSION: Stable mild chronic compression type fractures of the T8 and T9 vertebra. Alignment is st able. No significant change from recent MRI.
== END | disposition home or self-care (01) ==
LOC: RADCTMAIN 06:46
PROVIDERS: ATTEND Orthopaedic Surgery
DX: S22.009A Unspecified fracture of unspecified thoracic vertebra, initial encounter for closed fracture (principal); X58.XXXA Exposure to other specified factors, initial encounter
CPT/HCPCS: 72128

== ENCOUNTER 2022-03-08 08:19 | Inpatient (IN) | payer OTHER, MEDICAID ==
[2022-03-08 08:25] VITALS: RESP 18
[2022-03-08] MEDS ORDERED: SODIUM CHLORIDE 0.9% 1,000 ML IV STA ×2 (09:15→11:06)
[2022-03-08] MEDS ORDERED: KETOROLAC 15 MG/ML 1 ML VIAL IVP STA (09:15)
[2022-03-08] MEDS ORDERED: ONDANSETRON 4 MG/2 ML VIAL IVP STA (09:15)
--- NOTE | 2022-03-08 09:24 | ED ---
Abdominal Pain HPI - General Chief Complaint: Abdominal Pain Stated Complaint: Abd Pain,Vomiting Time Seen by Provider: 03/08/22 08:55 Source: patient, RN notes reviewed Mode of arrival: ambulatory Limitations: no limitations - History of Present Illness Initial Comments: This is a 31-year-old male who presents to the emergency department for abdominal pain. States that over the last 2 weeks, he has had intermittent episodes of abdominal pain that are worse after eating. At this point, the pain occurs almost every time that he eats. Pain is primarily in the epigastric region. These are accompanied by episodes of nausea and vomiting. He also has radiation to the right shoulder and josh colored stool. He had blood work done by his primary care provider and was told that he had elevated cholesterol and one of his liver enzymes was also elevated. He had an ultrasound of his gallbladder today prior to coming to the emergency department. Also states that last night he had a lot of pain and at this time it has somewhat reduced, which he states is likely due to the fact that he has not eaten recently. Denies any fevers, chills, sore throat, cough, dyspnea, chest pain, palpitations, back pain, or headaches. MD Complaint: abdominal pain Onset/Timin -: week(s) Location: LUQ, RUQ, epigastric Associated Symptoms: nausea, vomiting - Related Data Home Medications Medication Instructions Recorded Confirmed Phenyleph/Pramoxin/Glycr/W.pet 1 applic RECTAL QID PRN 10/04/21 03/08/22 [Preparation H Cream] Omeprazole [PriLOSEC] 40 mg PO DAILY@1200 11/27/21 03/08/22 Allergies Allergy/AdvReac Type Severity Reaction Status Date / Time cefprozil [From Cefzil] Allergy Rash/Hives Verified 03/08/22 08:24 Sulfa (Sulfonamide Allergy Rash/Hives Verified 03/08/22 08:24 Antibiotics) Review of Systems ROS Statement: Those systems with pertinent positive or pertinent negative responses have been documented in the HPI. ROS Other: All systems not noted in ROS Statement are negative. Past Medical History Past Medical History: Asthma, GERD/Reflux, Hyperlipidemia Additional Past Medical History / Comment(s): T9 compression fracture, September 22. Hemorrhoids. Rectal pain, perianal abcess lanced and drained. History of Any Multi-Drug Resistant Organisms: None Reported, MRSA Date of last positivie culture/infection: 2016 MDRO Source:: "can't remember" Past Surgical History: Adenoidectomy, Orthopedic Surgery, Tonsillectomy Additional Past Surgical History / Comment(s): Plate and bolt in right hand, bolt in bilateral ankles. Past Anesthesia/Blood Transfusion Reactions: No Reported Reaction Past Psychological History: No Psychological Hx Reported Smoking Status: Former smoker Past Alcohol Use History: Occasional Past Drug Use History: None Reported - Past Family History Mother Family Medical History: No Reported History General Exam Limitations: no limitations General appearance: alert, in no apparent distress Head exam: Present: atraumatic, normocephalic, normal inspection Respiratory exam: Present: normal lung sounds bilaterally. Absent: respiratory distress, wheezes, rales, rhonchi, stridor Cardiovascular Exam: Present: regular rate, normal rhythm, normal heart sounds. Absent: systolic murmur, diastolic murmur, rubs, gallop, clicks GI/Abdominal exam: Present: soft, tenderness (epigastric), normal bowel sounds. Absent: distended Neurological exam: Present: alert, oriented X3, CN II-XII intact Psychiatric exam: Present: normal affect, normal mood Skin exam: Present: warm, dry, intact, normal color. Absent: rash Course Vital Signs 03/08/22 08:23 Temperature 97.5 F L Pulse Rate 88 Respiratory 18 Rate Blood Pressure 126/85 O2 Sat by Pulse 98 Oximetry Medical Decision Making - Medical Decision Making This is a 31-year-old male who presents to the emergency department for abdominal pain. I did review the patient's ultrasound, which was done on an outpatient basis prior to coming to the emergency department. This does reveal cholelithiasis and recommended clinical correlation for cholecystitis. He did have discomfort throughout the entire ultrasound. He is also notably tender on examination at this time. He was given IV fluids, Zofran, and Toradol for his symptoms. Will repeat lab work as well to compare with prior values. Lab work reveals extremely elevated liver enzymes. Patient is also exhibiting bilirubinuria. There is no leukocytosis. He was started on maintenance fluids and Zosyn. Elevated liver enzymes concerning for choledocholithiasis. Patient admitted to medicine with Gen. surgery and GI consult. This case was discussed in detail with the attending ED physician. Presentation, findings, and treatment plan discussed in detail as well. - Lab Data Result diagrams: 03/08/22 10:08 03/08/22 10:08 Lab Results 03/08/22 03/08/22 03/08/22 Range/Units 10:08 10:08 10:08 WBC 4.6 (3.8-10.6) k/uL RBC 4.91 (4.30-5.90) m/uL Hgb 15.2 (13.0-17.5) gm/dL Hct 43.6 (39.0-53.0) % MCV 88.7 (80.0-100.0) fL MCH 30.9 (25.0-35.0) pg MCHC 34.8 (31.0-37.0) g/dL RDW 12.3 (11.5-15.5) % Plt Count 167 (150-450) k/uL MPV 8.1 Neutrophils % 56 % Lymphocytes % 29 % Monocytes % 9 % Eosinophils % 3 % Basophils % 1 % Neutrophils # 2.6 (1.3-7.7) k/uL Lymphocytes # 1.3 (1.0-4.8) k/uL Monocytes # 0.4 (0-1.0) k/uL Eosinophils # 0.1 (0-0.7) k/uL Basophils # 0.0 (0-0.2) k/uL Sodium 140 (137-145) mmol/L Potassium 4.3 (3.5-5.1) mmol/L Chloride 104 (98-107) mmol/L Carbon Dioxide 25 (22-30) mmol/L Anion Gap 11 mmol/L BUN 11 (9-20) mg/dL Creatinine 0.68 (0.66-1.25) mg/dL Est GFR (CKD-EPI)AfAm >90 (>60 ml/min/1.73 sqM) Est GFR (CKD-EPI)NonAf >90 (>60 ml/min/1.73 sqM) Glucose 102 H (74-99) mg/dL Plasma Lactic Acid Michael 0.8 (0.7-2.0) mmol/L Calcium 9.4 (8.4-10.2) mg/dL Total Bilirubin 4.7 H (0.2-1.3) mg/dL AST 279 H (17-59) U/L ALT 905 H (4-49) U/L Alkaline Phosphatase 149 H (38-126) U/L Total Protein 7.7 (6.3-8.2) g/dL Albumin 4.9 (3.5-5.0) g/dL Amylase 47 (30-110) U/L Lipase 136 (23-300) U/L Urine Color Urine Appearance (Clear) Urine pH (5.0-8.0) Ur Specific [place] (1.001-1.035) Urine Protein (Negative) Urine Glucose (UA) (Negative) Urine Ketones (Negative) Urine Blood (Negative) Urine Nitrite (Negative) Urine Bilirubin (Negative) Urine Urobilinogen (<2.0) mg/dL Ur Leukocyte Esterase (Negative) 03/08/22 Range/Units 10:40 WBC (3.8-10.6) k/uL RBC (4.30-5.90) m/uL Hgb (13.0-17.5) gm/dL Hct (39.0-53.0) % MCV (80.0-100.0) fL MCH (25.0-35.0) pg MCHC (31.0-37.0) g/dL RDW (11.5-15.5) % Plt Count (150-450) k/uL MPV Neutrophils % % Lymphocytes % % Monocytes % % Eosinophils % % Basophils % % Neutrophils # (1.3-7.7) k/uL Lymphocytes # (1.0-4.8) k/uL Monocytes # (0-1.0) k/uL Eosinophils # (0-0.7) k/uL Basophils # (0-0.2) k/uL Sodium (137-145) mmol/L Potassium (3.5-5.1) mmol/L Chloride (98-107) mmol/L Carbon Dioxide (22-30) mmol/L Anion Gap mmol/L BUN (9-20) mg/dL Creatinine (0.66-1.25) mg/dL Est GFR (CKD-EPI)AfAm (>60 ml/min/1.73 sqM) Est GFR (CKD-EPI)NonAf (>60 ml/min/1.73 sqM) Glucose (74-99) mg/dL Plasma Lactic Acid Michael (0.7-2.0) mmol/L Calcium (8.4-10.2) mg/dL Total Bilirubin (0.2-1.3) mg/dL AST (17-59) U/L ALT (4-49) U/L Alkaline Phosphatase (38-126) U/L Total Protein (6.3-8.2) g/dL Albumin (3.5-5.0) g/dL Amylase (30-110) U/L Lipase (23-300) U/L Urine Color Dark Yellow Urine Appearance Clear (Clear) Urine pH 6.0 (5.0-8.0) Ur Specific [place] 1.023 (1.001-1.035) Urine Protein Trace H (Negative) Urine Glucose (UA) Negative (Negative) Urine Ketones Negative (Negative) Urine Blood Negative (Negative) Urine Nitrite Negative (Negative) Urine Bilirubin 2+ H (Negative) Urine Urobilinogen 4.0 (<2.0) mg/dL Ur Leukocyte Esterase Negative (Negative) - Radiology Data Radiology results: report reviewed, image reviewed Disposition Clinical Impression: Choledocholithiasis Disposition: ADMITTED IP TO THIS HOSP
[2022-03-08 10:18] LABS: Basophils % (A) 1 %; Eosinophils # (A) 0.1 k/uL (0-0.7); Eosinophils % (A) 3 %; HCT 43.6 % (39.0-53.0); HGB 15.2 gm/dL (13.0-17.5); Lymphocytes # (A) 1.3 k/uL (1.0-4.8); Lymphocytes % (A) 29 %; MCH 30.9 pg (25.0-35.0); MCHC 34.8 g/dL (31.0-37.0); MCV 88.7 fL (80.0-100.0); Mean Platelet Volume 8.1; Monocytes # (A) 0.4 k/uL (0-1.0); Monocytes % (A) 9 %; Neutrophils # (A) 2.6 k/uL (1.3-7.7); Neutrophils % (A) 56 %; Platelet Count 167 k/uL (150-450); RBC 4.91 m/uL (4.30-5.90); RDW 12.3 % (11.5-15.5); WBC 4.6 k/uL (3.8-10.6)
[2022-03-08 10:34] LABS: AST 279 U/L (17-59); African American GFR (CKD) >90 (>60 ml/min/1.73 sqM); Albumin 4.9 g/dL (3.5-5.0); Alkaline Phosphatase 149 U/L (38-126); Amylase 47 U/L (30-110); Anion Gap 11 mmol/L; Blood Urea Nitrogen 11 mg/dL (9-20); Calcium 9.4 mg/dL (8.4-10.2); Carbon Dioxide 25 mmol/L (22-30); Chloride 104 mmol/L (98-107); Glucose 102 mg/dL (74-99); Lipase 136 U/L (23-300); Non-African American GFR(CKD) >90 (>60 ml/min/1.73 sqM); Potassium 4.3 mmol/L (3.5-5.1); Sodium 140 mmol/L (137-145); Total Bilirubin 4.7 mg/dL (0.2-1.3); Total Protein 7.7 g/dL (6.3-8.2)
[2022-03-08 10:51] LABS: ALT 905 U/L (4-49)
[2022-03-08 11:01] LABS: Appearance,Urine Clear (Clear); Bilirubin,Urine 2+ (Negative); Blood,Urine Negative (Negative); Color,Urine Dark Yellow; Glucose,Urine (UA) Negative (Negative); Ketones,Urine Negative (Negative); Leukocyte Esterase,Urine Negative (Negative); Nitrite,Urine Negative (Negative); Protein,Urine Trace (Negative); Specific Gravity,Urine 1.023 (1.001-1.035)
[2022-03-08] MEDS ORDERED: PIPERACILLIN-TAZOBACTAM 3.375 GM in SODIUM CHLORIDE 0.9% 100 ML IVPB STA (11:10)
[2022-03-08] MEDS ORDERED: HYDROmorphone 1 MG/ML 1 ML SYRINGE IVP PRN (11:21)
[2022-03-08] MEDS ORDERED: NALOXONE 0.4 MG/ML 1 ML VIAL IV PRN (11:21)
[2022-03-08] MEDS ORDERED: ONDANSETRON 4 MG/2 ML VIAL IVP PRN (11:21)
[2022-03-08] MEDS ORDERED: ACETAMINOPHEN TAB 325 MG TAB PO PRN (11:21)
[2022-03-08] MEDS ORDERED: HYDROmorphone 0.5 MG/0.5 ML SYRINGE IVP PRN (11:21)
[2022-03-08] MEDS ORDERED: GLUCAGON 1 MG/ML VIAL IVP STA (12:00)
--- NOTE | 2022-03-08 12:00 | P.GSCN ---
History of Present Illness Consult date: 03/08/22 Reason for Consult: Abdominal pain, elevation of liver studies, cholelithiasis seen on abdominal ultrasound. History of present illness: Patient's a 31-year-old gentleman who presents to [facility] emergency department 7 2021 with chief complaint of progressive focal epigastric and right upper quadrant abdominal pain with radiation of the right shoulder along with subjective chills. He describes acholic stool and darkening of the urine over the past few weeks. He tells me he's been having these sorts of problems on and off over the past 3 months. Pain tends to be postprandial in nature may last anywhere from 1-6 hours. Symptoms of been getting worse over the aforementioned timeframe. He tells me that recently his skin has started looking a bit darker. He has persistent issues with itching. He has no known personal history of inflammatory bowel disease. Did undergo EGD some years ago with evidence of fascial soft reflux disease, no reported ulcer disease. He underwent colonoscopy within the past year in follow-up after a posttraumatic perianal abscess. He tells me there was no evidence of ulcerative colitis or Crohn's disease found. He tells me he hasn't yet seen a surgeon in consultation. He had an outpatient abdominal ultrasound performed recently. Reported images are not available to me at present but reportedly there was evidence of cholelithiasis, equivocal findings for cholecystitis. Today he he's afebrile with stable vital signs. Laboratory studies showed no leukocytosis, st able hemoglobin and evidence of marked elevation of transaminases, alkaline phosphatase and bilirubin just above 4. He is presently comfortable at rest. He's been admitted to the medical service with general surgery and GI in consultation. No reported history of cardiac issues, not maintained on any manner oral anticoagulants, no reported history of diabetes mellitus. Historically he is been prescribed PPIs for reflux, symptoms haven't been bothering him and as such she hasn't been taking medications for acid suppression. Review of Systems All systems: negative - Constitutional Reports as per HPI Past Medical History Past Medical History: Asthma, GERD/Reflux, Hyperlipidemia Additional Past Medical History / Comment(s): T9 compression fracture, September 22. Hemorrhoids. Rectal pain, perianal abcess lanced and drained. History of Any Multi-Drug Resistant Organisms: None Reported, MRSA Year Discovered:: 2017 MDRO Source:: "can't remember" Past Surgical History: Adenoidectomy, Orthopedic Surgery, Tonsillectomy Additional Past Surgical History / Comment(s): Plate and bolt in right hand, bolt in bilateral ankles. Past Anesthesia/Blood Transfusion Reactions: No Reported Reaction Past Psychological History: No Psychological Hx Reported Smoking Status: Former smoker Past Alcohol Use History: Occasional Past Drug Use History: None Reported - Past Family History Mother Family Medical History: No Reported History Medications and Allergies Home Medications Medication Instructions Recorded Confirmed Type Phenyleph/Pramoxin/Glycr/W.pet 1 applic RECTAL QID PRN 10/04/21 03/08/22 History [Preparation H Cream] Omeprazole [PriLOSEC] 40 mg PO DAILY@1200 11/27/21 03/08/22 History Allergies Allergy/AdvReac Type Severity Reaction Status Date / Time cefprozil [From Cefzil] Allergy Rash/Hives Verified 03/08/22 08:24 Sulfa (Sulfonamide Allergy Rash/Hives Verified 03/08/22 08:24 Antibiotics) Surgical - Exam Osteopathic Statement: *. No significant issues noted on an osteopathic structural exam other than those noted in the History and Physical/Consult. Vital Signs Temp Pulse Resp BP Pulse Ox 97.5 F L 88 18 126/85 98 03/08/22 08:23 03/08/22 08:23 03/08/22 08:23 03/08/22 08:23 03/08/22 08:23 - General well developed, well nourished, no distress - Eyes PERRL, normal ocular movement - ENT normal pinna, normal nares - Cardiovascular Rhythm: regular - Abdomen Abdomen is soft, nontender to palpation, no guarding rebound or distention. No discrete epigastric or right upper quadrant tenderness on deep palpation. No clinical signs of peritonitis. He does have a slightly jaundiced appearance. - Neurologic normal coordination, normal sensation - Musculoskeletal normal gait - Psychiatric oriented to time, oriented to person, oriented to place, speech is normal Results - Labs 03/08/22 10:08 03/08/22 10:08 Abnormal Lab Results - Last 24 Hours (Table) 03/08/22 03/08/22 Range/Units 10:08 10:40 Glucose 102 H (74-99) mg/dL Total Bilirubin 4.7 H (0.2-1.3) mg/dL AST 279 H (17-59) U/L ALT 905 H (4-49) U/L Alkaline Phosphatase 149 H (38-126) U/L Urine Protein Trace H (Negative) Urine Bilirubin 2+ H (Negative) Diabetes panel 03/08/22 Range/Units 10:08 Sodium 140 (137-145) mmol/L Potassium 4.3 (3.5-5.1) mmol/L Chloride 104 (98-107) mmol/L Carbon Dioxide 25 (22-30) mmol/L BUN 11 (9-20) mg/dL Creatinine 0.68 (0.66-1.25) mg/dL Glucose 102 H (74-99) mg/dL Calcium 9.4 (8.4-10.2) mg/dL AST 279 H (17-59) U/L ALT 905 H (4-49) U/L Alkaline Phosphatase 149 H (38-126) U/L Total Protein 7.7 (6.3-8.2) g/dL Albumin 4.9 (3.5-5.0) g/dL Calcium panel 03/08/22 Range/Units 10:08 Calcium 9.4 (8.4-10.2) mg/dL Albumin 4.9 (3.5-5.0) g/dL Pituitary panel 03/08/22 Range/Units 10:08 Sodium 140 (137-145) mmol/L Potassium 4.3 (3.5-5.1) mmol/L Chloride 104 (98-107) mmol/L Carbon Dioxide 25 (22-30) mmol/L BUN 11 (9-20) mg/dL Creatinine 0.68 (0.66-1.25) mg/dL Glucose 102 H (74-99) mg/dL Calcium 9.4 (8.4-10.2) mg/dL Adrenal panel 03/08/22 Range/Units 10:08 Sodium 140 (137-145) mmol/L Potassium 4.3 (3.5-5.1) mmol/L Chloride 104 (98-107) mmol/L Carbon Dioxide 25 (22-30) mmol/L BUN 11 (9-20) mg/dL Creatinine 0.68 (0.66-1.25) mg/dL Glucose 102 H (74-99) mg/dL Calcium 9.4 (8.4-10.2) mg/dL Total Bilirubin 4.7 H (0.2-1.3) mg/dL AST 279 H (17-59) U/L ALT 905 H (4-49) U/L Alkaline Phosphatase 149 H (38-126) U/L Total Protein 7.7 (6.3-8.2) g/dL Albumin 4.9 (3.5-5.0) g/dL Assessment and Plan Assessment: 31-year-old gentleman with clinical and laboratory findings consistent with obstructive jaundice, suspect due to choledocholithiasis. Transaminitis and elevated alkaline phosphatase due to the same. No evidence of peritonitis on exam, no signs of systemic infection, doubt acute cholecystitis or cholangitis at present. Plan: Patient's been admitted to the medical service with general surgery and GI in co nsultation. Trend liver function studies and bilirubin. Maintenance IV fluids. I don't see a compelling indication for antibiotics at present. We'll try a few doses of glucagon to see if we can get the stone to pass spontaneously. He'll be ready for cholecystectomy at such time as his bile duct can be cleared, this could be pursued on either an inpatient or outpatient basis. Time with Patient: Greater than 30
--- NOTE | 2022-03-08 14:32 | P.CONS ---
History of Present Illness - Reason for Consult Consult date: 03/08/22 Choledocholithiasis Requesting physician: Sally Escobedo - Chief Complaint Abnormal ultrasound, abdominal pain, hyperbilirubinemia - History of Present Illness This is a pleasant 31-year-old male who presented to the emergency department directed by his physician for abnormal ultrasound concerning for cholelithiasis and choledocholithiasis. patient reportedly has been having intermittent abdominal pain for the last 2 months duration. He states this past Friday he had severe pain he was coming to the emergency department but the pain went away so he turned around and went home. Last week he was having nausea and vomiting associated with the pain. The pain comes and goes mostly in the midepigastric region also was in the lower abdominal region as well. Outpatient ultrasound showed cholelithiasis hepatomegaly with the CBD dilated to 0.8 cm. Patient denies any fevers or chills. He's been afebrile. No evidence of leukocytosis however LFTs are elevated. Patient states he has no pain at this time, no nausea or vomiting. She denies any history of underlying liver disease, no history alcohol abuse. Labs WBC 4.6 hemoglobin 15 hematocrit 43 platelet count 167,000 sodium 140 potassium 4.3 BUN 11 creatinine 0.6 total bilirubin 4.7 AST 279 ALT 905 alkaline phosphatase 149 amylase 47 lipase 136 Gallbladder ultrasound: Impression states cholelithiasis. Clinical correlation for cholecystitis is recommended. Hepatomegaly. CBD 0.80 cm Review of Systems REVIEW OF SYSTEMS: CARDIOPULMONARY: No chest pain or shortness of breath. Gastrointestinal: Intermittent abdominal pain mostly midepigastric, right upper quadrant. None reported currently. Associated nausea and vomiting 1 week ago, none currently. No hematemesis, coffee-ground emesis. No rectal bleeding, or melena. GENITOURINARY: No dysuria or hematuria. MUSCULOSKELETAL: Reports normal range of motion. SKIN: No rashes. No jaundice. ENDOCRINE: No chills, fevers. No excessive weight gain or loss. No polydipsia or polyuria. PSYCHIATRIC: Unremarkable. NEUROLOGY: No change in mental status. Denies dizziness, headache. ENT: Vision unremarkable. CONSTITUTIONAL: No recent weight loss. No fever, chills, night sweats. Past Medical History Past Medical History: Asthma, GERD/Reflux, Hyperlipidemia Additional Past Medical History / Comment(s): T9 compression fracture, September 22. Hemorrhoids. Rectal pain, perianal abcess lanced and drained. History of Any Multi-Drug Resistant Organisms: None Reported, MRSA Year Discovered:: 2017 MDRO Source:: "can't remember" Past Surgical History: Adenoidectomy, Orthopedic Surgery, Tonsillectomy Additional Past Surgical History / Comment(s): Plate and bolt in right hand, bolt in bilateral ankles. Past Anesthesia/Blood Transfusion Reactions: No Reported Reaction Past Psychological History: No Psychological Hx Reported Smoking Status: Former smoker Past Alcohol Use History: Occasional Past Drug Use History: None Reported - Past Family History Mother Family Medical History: No Reported History Medications and Allergies Home Medications Medication Instructions Recorded Confirmed Type Phenyleph/Pramoxin/Glycr/W.pet 1 applic RECTAL QID PRN 10/04/21 03/08/22 History [Preparation H Cream] Omeprazole [PriLOSEC] 40 mg PO DAILY@1200 11/27/21 03/08/22 History Allergies Allergy/AdvReac Type Severity Reaction Status Date / Time cefprozil [From Cefzil] Allergy Rash/Hives Verified 03/08/22 08:24 Sulfa (Sulfonamide Allergy Rash/Hives Verified 03/08/22 08:24 Antibiotics) Physical Exam Vitals: Vital Signs Temp Pulse Resp BP Pulse Ox 03/08/22 08:23 97.5 F L 88 18 126/85 98 Intake and Output 03/07/22 03/08/22 03/08/22 22:59 06:59 14:59 Other: Weight 112.037 kg General appearance: The patient is alert, oriented, appears in no acute di stress. HET: Head is normocephalic and atraumatic. Conjunctiva pink. Sclera anicteric. Neck: Supple without lymphadenopathy. Abdomen: Soft, obese, nontender, nondistended with bowel sounds. No guarding or rigidity. Extremities: Normal skin color and turgor. No pedal edema Skin: No rashes, no jaundice Neurological: No focal deficits. Alert and oriented. Results CBC & Chem 7: 03/08/22 10:08 03/08/22 10:08 Labs: Abnormal Lab Results - Last 24 Hours (Table) 03/08/22 03/08/22 Range/Units 10:08 10:40 Glucose 102 H (74-99) mg/dL Total Bilirubin 4.7 H (0.2-1.3) mg/dL AST 279 H (17-59) U/L ALT 905 H (4-49) U/L Alkaline Phosphatase 149 H (38-126) U/L Urine Protein Trace H (Negative) Urine Bilirubin 2+ H (Negative) Comments: Gallbladder ultrasound: Impression states cholelithiasis. Clinical correlation for cholecystitis is recommended. Hepatomegaly. CBD 0.80 cm Assessment and Plan (1) Choledocholithiasis Narrative/Plan: 31-year-old male who presented to the emergency department with an abnormal ultrasound concerning for cholelithiasis and choledocholithiasis with a dilated CBD up to 0.8 cm with multiple gallstones. Patient with intermittent pain over the last 2 months duration which worsened on Friday but then improved. He continues to have intermittent pain especially following eating. Upon evaluation at the emergency room he was known to have hyperbilirubinemia and elevated LFTs consistent with possible choledocholithiasis. There is no gastroenterology service available to perform ERCP which is recommended. Discussed with general surgeon and primary medicine team agrees to transfer patient to tertiary center with advanced archival records clerk to perform ERCP. Patient is agreeable with plan of her does voice that he would like to be transferred to a [facility] due to insurance. Current Visit: Yes Status: Acute Code(s): K80.50 - CALCULUS OF BILE DUCT W/O CHOLANGITIS OR CHOLECYST W/O OBST SNOMED Code(s): 668200925 (2) Abdominal pain Current Visit: Yes Status: Acute Code(s): R10.9 - UNSPECIFIED ABDOMINAL PAIN SNOMED Code(s): 09477397 (3) Cholelithiasis Current Visit: Yes Status: Acute Code(s): K80.20 - CALCULUS OF GALLBLADDER W/O CHOLECYSTITIS W/O OBSTRUCTION SNOMED Code(s): 309628084 Plan: 1. Continue symptomatic and supportive care 2. Recommend transfer to tertiary center with advanced to a archival records clerk to perform ERCP for suspected choledocholithiasis 3. Patient may have clear liquid diet if transfer not available at this time 4. Continue with recommendations from general surgery 5. Continue medical management 6. Antiemetics as needed Thank you for allowing us to participate in the care of the patient, the GI service will sign off, gastroenterology will not be available at the hospital this weekend and through next week. Dr. Jesus Mcnulty I agree with the dictator's note, documented as a scribe by Daly Barclay.
--- NOTE | 2022-03-08 16:01 | P.HPIM ---
History of Present Illness H&P Date: 03/08/22 Patient is a 31-year-old male with no significant past medical history presents the ED for abdominal pain that has been ongoing for the past 2 months. Patient reports abdominal pain is epigastric and periumbilical, colicky, worsened with meals, occasional radiation to the right shoulder. His pain is associated with nausea and vomiting. He also reports josh colored stools, dark urine and generalized itching. He underwent ultrasound in the outpatient setting which showed cholelithiasis, choledocholithiasis with a dilated CBD up to 0.8 cm with gallstones. Patient denies any headache or lower extremity edema, fever chills, cough, chest pain, shortness of breath, palpitations. He reports a decreased appetite. He denies any lightheadedness, numbness/weakness/tingling of the extremities. In the ED, his vital signs were stable. CBC was unremarkable. CMP showed glucose of 102, total bilirubin of 4.7, AST of 279, ALT of 905, alkaline phosphatase 149. Lipase negative. Urinalysis showed 2+ bilirubin. Patient was admitted for further management of symptoms. General surgery was consulted and recommended trial of glucagon. Gastroenterology was consulted and recommended transfer to a tertiary center for ERCP. Patient was accepted at [facility] however there are no beds available. He'll be admitted here until he can be transferred. Pertinent positives and negatives as discussed in HPI, a complete review of systems was performed and all other systems are negative. General: non toxic, no distress, appears at stated age Derm: warm, dry Head: atraumatic, normocephalic, symmetric Eyes: EOMI, no lid lag, anicteric sclera Mouth: no lip lesion, mucus membranes moist Cardiovascular: S1S2 reg, no murmur, positive posterior tibial pulse bilateral, Lungs: CTA bilateral, no rhonchi, no rales , no accessory muscle use Abdominal: soft, nontender to palpation, no guarding, no appreciable organomegaly Ext: no gross muscle atrophy, no edema, no contractures Neuro: CN II-XI grossly intact, no focal neuro deficits Psych: Alert, oriented, appropriate affect #Choledocholithiasis #Cholelithiasis #Abdominal pain #Transaminitis #Obesity Patient was given Zosyn in the ED. He does not have any signs of cholecystitis. No indication for antibiotics. Plans to transfer to [facility] for ERCP. Zofran as needed for nausea and vomiting. Dilaudid as needed for pain. IV hydration. Clear liquid diet. DVT prophylaxis: Early ambulation Discussed with: Patient, ED physician Anticipated discharge place: Transfer to [facility] A total of 35 minutes was spent on the care of this complex patient more than 50% of the time was spent in counseling and care coordination. Patient names his decision maker if he can't make decisions for himself. Patient would like to be full code. Past Medical History Past Medical History: Asthma, GERD/Reflux, Hyperlipidemia Additional Past Medical History / Comment(s): T9 compression fracture, September 22. Hemorrhoids. Rectal pain, perianal abcess lanced and drained. History of Any Multi-Drug Resistant Organisms: None Reported, MRSA Date of last positivie culture/infection: 2016 MDRO Source:: "can't remember" Past Surgical History: Adenoidectomy, Orthopedic Surgery, Tonsillectomy Additional Past Surgical History / Comment(s): Plate and bolt in right hand, bolt in bilateral ankles. Past Anesthesia/Blood Transfusion Reactions: No Reported Reaction Past Psychological History: No Psychological Hx Reported Smoking Status: Former smoker Past Alcohol Use History: Occasional Past Drug Use History: None Reported - Past Family History Mother Family Medical History: No Reported History Medications and Allergies Home Medications Medication Instructions Recorded Confirmed Type Phenyleph/Pramoxin/Glycr/W.pet 1 applic RECTAL QID PRN 10/04/21 03/08/22 History [Preparation H Cream] Omeprazole [PriLOSEC] 40 mg PO DAILY@1200 11/27/21 03/08/22 History Allergies Allergy/AdvReac Type Severity Reaction Status Date / Time cefprozil [From Cefzil] Allergy Rash/Hives Verified 03/08/22 08:24 Sulfa (Sulfonamide Allergy Rash/Hives Verified 03/08/22 08:24 Antibiotics) Physical Exam Vitals: Vital Signs Temp Pulse Resp BP Pulse Ox 03/08/22 08:23 97.5 F L 88 18 126/85 98 Intake and Output 03/08/22 03/08/22 03/08/22 06:59 14:59 22:59 Other: Weight 112.037 kg Results CBC & Chem 7: 03/08/22 10:08 03/08/22 10:08 Labs: Abnormal Lab Results - Last 24 Hours (Table) 03/08/22 03/08/22 Range/Units 10:08 10:40 Glucose 102 H (74-99) mg/dL Total Bilirubin 4.7 H (0.2-1.3) mg/dL AST 279 H (17-59) U/L ALT 905 H (4-49) U/L Alkaline Phosphatase 149 H (38-126) U/L Urine Protein Trace H (Negative) Urine Bilirubin 2+ H (Negative)
[2022-03-08] MEDS ORDERED: PIPERACILLIN-TAZOBACTAM 3.375 GM in SODIUM CHLORIDE 0.9% 100 ML IVPB SCH (20:00)
[2022-03-08 21:33] VITALS: BP 132/82; PULSE 76; TEMP 98
[2022-03-09] MEDS ORDERED: PANTOPRAZOLE 40 MG/10 ML VIAL IV SCH (09:00)
--- NOTE | 2022-03-10 13:08 | P.DS ---
Providers Date of admission: 03/08/22 11:21 Expected date of discharge: 03/10/22 Attending physician: Dunia Lebron MD Consults: 03/08/22 11:16 Consult Physician Urgent Consulting Provider: Ervin Becker Consult Reason/Comments: Possible choledocholithiasis Do you want consulting provider notified?: Already Contacted Consult Physician Urgent Consulting Provider: Vicki Mcnulty Consult Reason/Comments: possible choledocholithiasis Do you want consulting provider notified?: Yes Primary care physician: [facility] Course: Patient is a 31-year-old male with no significant past medical history presents the ED for abdominal pain that has been ongoing for the past 2 months. Patient reports abdominal pain is epigastric and periumbilical, colicky, worsened with meals, occasional radiation to the right shoulder. His pain is associated with nausea and vomiting. He also reports josh colored stools, dark urine and generalized itching. He underwent ultrasound in the outpatient setting which showed cholelithiasis, choledocholithiasis with a dilated CBD up to 0.8 cm with gallstones. Patient denies any headache or lower extremity edema, fever chills, cough, chest pain, shortness of breath, palpitations. He reports a decreased appetite. He denies any lightheadedness, numbness/weakness/tingling of the extremities. In the ED, his vital signs were stable. CBC was unremarkable. CMP showed glucose of 102, total bilirubin of 4.7, AST of 279, ALT of 905, alkaline phosphatase 149. Lipase negative. Urinalysis showed 2+ bilirubin. Patient was admitted for further management of symptoms. General surgery was consulted and recommended trial of glucagon. Gastroenterology was consulted and recommended transfer to a tertiary center for ERCP. Patient was accepted at [facility] however there are no beds available. He'll be admitted here until he can be transferred. Patient was transferred to [facility] on 03/09. Refer to H&P for physical exam. Discharge Diagnosis: #Choledocholithiasis #Cholelithiasis #Abdominal pain #Transaminitis #Obesity This complex discharge took 35 minutes to complete. Patient Condition at Discharge: Stable Plan - Discharge Summary Discharge Rx Participant: No New Discharge Prescriptions: No Action Phenyleph/Pramoxin/Glycr/W.pet [Preparation H Cream] 1 applic RECTAL QID PRN PRN Reason: Pain Omeprazole [PriLOSEC] 40 mg PO DAILY@1200 Discharge Medication List Phenyleph/Pramoxin/Glycr/W.pet [Preparation H Cream] 1 applic RECTAL QID PRN 10/04/21 [History] Omeprazole [PriLOSEC] 40 mg PO DAILY@1200 11/27/21 [History] Follow up Appointment(s)/Referral(s): Dulce Wynne MD [Primary Care Provider] - 1-2 days Discharge Disposition: DC/TRNS INTERMEDIATE CARE FAC
== END 2022-03-09 02:05 | disposition short-term general hospital (02) | DRG 446 ==
LOC: EC 08:19 → 5NMEDONC 11:21
PROVIDERS: ADMIT Family Medicine; ATTEND Family Medicine
DX: K80.71 Calculus of gallbladder and bile duct without cholecystitis with obstruction (principal); K21.9 Gastro-esophageal reflux disease without esophagitis; E78.00 Pure hypercholesterolemia, unspecified; E66.9 Obesity, unspecified; J45.909 Unspecified asthma, uncomplicated; Z87.19 Personal history of other diseases of the digestive system; R74.01 Elevation of levels of liver transaminase levels; L29.9 Pruritus, unspecified; Z87.891 Personal history of nicotine dependence; Z28.21 Immunization not carried out because of patient refusal; Z68.34 Body mass index [BMI] 34.0-34.9, adult; Z86.14 Personal history of Methicillin resistant Staphylococcus aureus infection; Z88.1 Allergy status to other antibiotic agents; Z88.2 Allergy status to sulfonamides; Z88.8 Allergy status to other drugs, medicaments and biological substances
CPT/HCPCS: 36415; 80053; 81003; 82150; 83605; 83690; 85025; 87040; 96361; 96365; 96366; 96375; 99285

== ENCOUNTER → 2022-03-08 | Outpatient (CLI) | payer MEDICAID, OTHER ==
--- NOTE | 2022-03-08 08:34 | US ---
EXAMINATION TYPE: US gallbladder DATE OF EXAM: 03/08/2022 COMPARISON: CT CLINICAL HISTORY: R10.11, R94.5. Abnormal liver enzymes. TECHNIQUE: Multiple sonographic images of the right upper quadrant are obtained. FINDINGS: EXAM MEASUREMENTS: Liver Length: 18.0 cm Gallbladder Wall: 0.23 cm CBD: 0.80 cm Right Kidney: 12.1 x 6.0 x 4.3 cm [employer] MANAGER NOTES: Limited due to overlying bowel gas. Pancreas: Obscured Liver: Increased echogenicity and attenuation. Appears enlarged. Hypoechoic area seen adjacent to the gallbladder: 1.8 x 1.3 x 0.6 cm. Gallbladder: Appears to be filled with hyperechoic foci with posterior shadowing. JESSICA sign. Evidence for sonographic Villavicencio's sign: Patient does feel pain throughout the exam. CBD: Dilated patient age. Right Kidney: No hydronephrosis or masses seen IMPRESSION: 1. Cholelithiasis. Clinical correlation for cholecystitis is recommended. 2. Hepatomegaly.
== END | disposition home or self-care (01) ==
LOC: RADUSWWP 07:32
PROVIDERS: ATTEND Family Medicine
DX: K80.20 Calculus of gallbladder without cholecystitis without obstruction (principal); R16.0 Hepatomegaly, not elsewhere classified; R94.5 Abnormal results of liver function studies
CPT/HCPCS: 76705

== ENCOUNTER → 2022-09-18 | Outpatient (CLI) | payer MEDICAID, OTHER ==
[2022-09-18 12:35] VITALS: BP 125/89; PULSE 89; RESP 18; TEMP 97.8
--- NOTE | 2022-09-18 15:04 | P.PAINPG ---
PQRS Measure Charge Sheet Comment: HISTORY OF PRESENT ILLNESS: 32 yr old as a referral from Dr Sotero Rankin presents today w severe and chronic LBP secondary to DDD, spondylosis and facet arthropathy without myelopathy for evaluation. Pt states pain level is provoked at 7/10 in intensity, constant, localized in the center lumbar spine, burning in character without shooting pain. Pain is provoked by bending, lifting. Pain is alleviated by PT x 10 wks in Apr 2022, use of massage chair at home, chirpractic treatments weekly x 2 mo which he is currently in, medications ([place], Valium, NSAIDs, Ibu), Lidoderm, resting and rest. PMH: OA, Asthma, GERD, Hyperlipidemia PSH: T9 compression fracture, Adenoidectomy, R Hand Hardware Surgery, BL Ankle Hardware Surgery, Tonsillectomy SH: Former tobacco user, Occasional ETOH use, No illicit drug use FH: Mo- No Reported History All: See list Meds: See list REVIEW OF ORGAN SYSTEMS: CONSTITUTIONAL: No fevers or chills. No recent weight loss. NEUROLOGICAL: + numbness and tingling along the distal extremities. No seizure disorders or headaches. MUSCULOSKELETAL: + pain PSYCHIATRIC: Denies current depression or suicidal thoughts. Physical Examinations : Constitutional : Cooperative , not in acute distress . Neurologic : Cranial nerve II to XII intact. No focal neurological deficits. Psychiatric : alert & oriented x 3. Matching mood & appropriate affect. Judgment & insight intact. Musculoskeletal : Cervical Spine Motor strength in the deltoid and biceps: Normal right side. Normal Left side Motor strength biceps and the wrist extensors: Normal right side . Normal left side Motor strength in the triceps muscle: Normal right side. Normal left side Deep tendon reflexes: Normal at the biceps. Normal at Brachioradialis. Normal at triceps Vertebral body tenderness to deep palpation over Cervical facet loading test: positive bilaterally Spurling test: positive bilaterally Neck distraction test: positive bilaterally Terry sign: positive bilaterally Thoracic spine Vertebral body tenderness to palpation over L T8 Lumbar spine Motor strength lower extremities ,thigh and legs 5/5 Right side , 5/5 Left side Deep tendon reflexes : Normal Knee Jerk. Normal Ankle Jerk Vertebral body tenderness over Lainez Test positive Lumbar facet Loading Test: positive Right / positive Left Range of motion of the lumbar spine Flexion 30 degrees, extension 10 degrees Straight Leg Raise test: Left/ Right positive at degree Luis test: positive right / positive left. Severe tenderness over the Sacroiliac joint on the Right / Left sides Gaenslen test: positive bilaterally Seated flexion test: positive bilaterally. Sacral spine : Severe tenderness over the Sacroiliac joint: right side / left side Range of motion: Flexion of the lumbar spine <60 degrees Range of motion: Extension of the lumbar spine <20 degrees Gaenslen's Test positive Christopher's Test positive Luis test: positive right side / left side Thigh Thrust Test Sacral Thrust Test Imaging: Noncontrast of the thoracic spine from 10/25/21 reviewed Assessment/ Plan : Thoracic T9 fracture Recommenation of OJRGE ALBERTO T8-T9 #1. May need a series of injections for optimal pain relief. Risks, benefits of procedure discussed and patient verbalized understanding. Admits to aspirin or anti- coagulant use or medical history of diabetes. Protocol for discontinuation/ continuation of medications sukhdeep procedure discussed. Minimal anesthesia provided, if clinically indicated, consisting of Versed and Fentanyl. All questions answered. I have spent greater than 30 minutes on patient care today. Dr Benavides was available by phone for the evaluation of this patient. The time was used to review the medical records including relevant urine studies and Prescription history (MAPs), review of the available imaging, evaluation and examination of the patient, coordination of care with the medical staff and if applicable referring physicians, as well as creation of the medical record Home Medications: Ambulatory Orders Phenyleph/Pramoxin/Glycr/W.pet [Preparation H Cream] 1 applic RECTAL QID PRN 10/04/21 Omeprazole [PriLOSEC] 40 mg PO DAILY@1200 11/27/21 Controlled Substance Measures - Controlled Substance Measures Is patient prescribed a controlled substance at discharge?: No
== END ==
LOC: PNWHC3 10:42
PROVIDERS: ATTEND Specialist
DX: S22.070A Wedge compression fracture of T9-T10 vertebra, initial encounter for closed fracture (principal); M19.90 Unspecified osteoarthritis, unspecified site; J45.909 Unspecified asthma, uncomplicated; K21.9 Gastro-esophageal reflux disease without esophagitis; E78.5 Hyperlipidemia, unspecified; G89.29 Other chronic pain; Z88.2 Allergy status to sulfonamides; Z88.1 Allergy status to other antibiotic agents
CPT/HCPCS: 99211

== ENCOUNTER 2022-10-15 09:25 | Day surgery (SDC) | payer OTHER ==
[2022-10-09 11:33] VITALS: BMI 34.8
[~2022-10-15 09:25] MED LIST changes: -LIDOCAINE 1% (10MG/ML) FOR IV START INTRADERMA PRN
[2022-10-15 09:45] VITALS: RESP 16; TEMP 96.8
[2022-10-15] MEDS ORDERED: DEXAMETHASONE SOD PHOSPHATE 10 MG/ML 1 ML VIAL ONE (09:49)
[2022-10-15] MEDS ORDERED: IOPAMIDOL M200 10 ML VIAL ONE (09:49)
--- NOTE | 2022-10-15 10:08 | P.PCN ---
Date of Procedure: 10/15/22 Surgeon: Rhina Melissa Pathology: none sent Condition: stable Disposition: PACU Description of Procedure: PROCEDURE 1. Thoracic epidural steroid injection under fluoroscopic guidance, T8-9 in the left paramedian approach. 2. Thoracic epidurogram. : PREOPERATIVE DIAGNOSIS: Thoracic radiculopathy, thoracic compression fracture after trauma POSTOPERATIVE DIAGNOSIS: : Same as above ANESTHESIA: Local only anesthesia with 1% lidocaine PROCEDURE INDICATION: The patient with neck pain and radiculopathy unresponsive to conservative treatment consents for procedure. PROCEDURE DESCRIPTION / TECHNIQUE: The patient was seen and identified in the preoperative area. Risks, benefits, complications, including but not limited to infections ,bleeding , allergic reactions to the medications ,and not complete pain relief, and alternatives were discussed with the patient, the patient agreed to proceed with the procedure and signed the consent. Patient was taken to the OR and time out was completed. The patient was placed in the prone position on the procedure table. A pillow was placed under the patients chest to increase the flexion of the cervical spine . The cervical area was prepped and draped in the usual sterile fashion. Vital signs were closely monitored during the procedure. Conscious sedation was used during the procedure to decrease patients anxiety. Using anterior-posterior fluoroscopy, the T9 interlaminar space was identified and the skin over this site was marked and then infiltrated with 1% lidocaine subcutaneously. Subsequently, a 20-gauge 3-1/2-inch Tuohy epidural needle was inserted and advanced toward the epidural space by means of loss of resistance to air technique and guided by AP and lateral fluoroscopy. The needle tip contacted the lamina of T8 vertebra first, then it was walked off bone and into the epidural space using the loss of to air and fluoroscopic guidance to identify the epidural space. The correct needle position in the epidural space was verified with the injection of 1 mL of the water soluble contrast dye Isovue and observing an excellent epidurogram with the epidural spread of the dye, after negative aspiration for blood and CSF and in the absence of paresthesias. Again after negative aspiration, a 5 ml mixture containing 10 mg of Decadron and 4 ml of preservative free Normal Saline solution was injected and a washout of epidurogram was seen. Needle was withdrawn intact, skin was cleansed, and bandages were applied. A copy of the needle placement picture was saved to the fluoroscopy machine.
[2022-10-15 10:14] VITALS: BP 120/82; PULSE 90
--- NOTE | 2022-10-15 10:51 | FL ---
Intraoperative/procedural fluoroscopic services were provided. Total fluoroscopy time is 50.5 seconds with a total of 2 submitted images to PACS. Please see the operative/procedural note for further det ails. DAP: [id number] mGym2
== END 2022-10-15 10:25 | disposition home or self-care (01) ==
LOC: ORPAIN 09:25
PROVIDERS: ATTEND Anesthesiology
DX: M54.14 Radiculopathy, thoracic region (principal); S22.060A Wedge compression fracture of T7-T8 vertebra, initial encounter for closed fracture; S22.070A Wedge compression fracture of T9-T10 vertebra, initial encounter for closed fracture; X58.XXXA Exposure to other specified factors, initial encounter; K21.9 Gastro-esophageal reflux disease without esophagitis
CPT/HCPCS: 62321; J1100; Q9966

== ENCOUNTER → 2022-11-06 | Outpatient (CLI) | payer OTHER ==
[2022-11-06 11:18] VITALS: BP 141/97; PULSE 85; RESP 15; TEMP 98.2
--- NOTE | 2022-11-06 14:22 | P.PAINPG ---
PQRS Measure Charge Sheet Comment: HISTORY OF PRESENT ILLNESS: 32 yr old presents today w severe and chronic LBP secondary to DDD, spondylosis and facet arthropathy without myelopathy for evaluation s/p JORGE ALBERTO LT8-9. Pt states he experienced 0% pain relief s/p procedure. Pt states pain level is provoked at 7/10 in intensity, constant, localized in the center lumbar spine, burning in character without shooting pain. Pain is provoked by bending, lifting. Pain is alleviated by PT x 10 wks in Apr 2022, use of massage chair at home, chiropract ic treatments weekly x 2 mo in Oct 2022, medications, Lidoderm, resting and rest. Oswestry axial pain score of 18. Inteventional procedures include JORGE ALBERTO T8-9 x1 Medications include [place], Valium NSAIDs, Lidoderm REVIEW OF ORGAN SYSTEMS: CONSTITUTIONAL: No fevers or chills. No recent weight loss. NEUROLOGICAL: + numbness and tingling along the distal ext remities. No seizure disorders or headaches. MUSCULOSKELETAL: + pain PSYCHIATRIC: Denies current depression or suicidal thoughts. Physical Examinations : Constitutional : Cooperative , not in acute distress . Neurologic : Cranial nerve II to XII intact. No focal neurological deficits. Psychiatric : alert & oriented x 3. Matching mood & appropriate affect. Judgment & insight intact. Musculoskeletal : Cervical Spine Motor strength in the deltoid and biceps: Normal right side. Normal Left side Motor strength biceps and the wrist extensors: Normal right side . Normal left side Motor strength in the triceps muscle: Normal right side. Normal left side Deep tendon reflexes: Normal at the biceps. Normal at Brachioradialis. Normal at triceps Vertebral body tenderness to deep palpation over Cervical facet loading test: positive bilaterally Spurling test: positive bilaterally Neck distraction test: positive bilaterally Terry sign: positive bilaterally Thoracic spine Facet loading test positive over L T8- 9, T9-10 Lumbar spine Motor strength lower extremities ,thigh and legs 5/5 Right side , 5/5 Left side Deep tendon reflexes : Normal Knee Jerk. Normal Ankle Jerk Vertebral body tenderness over Lainez Test positive Lumbar facet Loading Test: positive Right / positive Left Range of motion of the lumbar spine Flexion 30 degrees, extension 10 degrees Straight Leg Raise test: Left/ Right positive at degree Luis test: positive right / positive left. Severe tenderness over the Sacroiliac joint on the Right / Left sides Gaenslen test: positive bilaterally Seated flexion test: positive bilaterally. Sacral spine : Severe tenderness over the Sacroiliac joint: right side / left side Range of motion: Flexion of the lumbar spine <60 degrees Range of motion: Extension of the lumbar spine <20 degrees Gaenslen's Test positive Christopher's Test positive Luis test: positive right side / left side Thigh Thrust Test Sacral Thrust Test Imaging: Non contrast of the thoracic spine from 10/25/21 reviewed Assessment/ Plan : Thoracic T9 fracture Recommendation of L facet block of the medial branches T8-T9, T9-T10 #1. May need a series of injections, up until RFA, for optimal pain relief. Risks, benefits of procedure discussed and patient verbalized understanding. Admits to aspirin or anti- coagulant use or medical history of diabetes. Protocol for discontinuation/ continuation of medications sukhdeep procedure discussed. Minimal anesthesia provided, if clinically indicated, consisting of Versed and Fentanyl. All questions answered. I have spent greater than 30 minutes on patient care today. Dr Benavides was available by phone for the evaluation of this patient. The time was used to review the medical records including relevant urine studies and Prescription history (MAPs), review of the available imaging, evaluation and examination of the patient, coordination of care with the medical staff and if applicable referring physicians, as well as creation of the medical record PQRS Narrative: Hx Alcohol Use (MH) No Home Medications: Ambulatory Orders Omeprazole [PriLOSEC] 40 mg PO DAILY@1200 11/27/21 Controlled Substance Measures - Controlled Substance Measures Is patient prescribed a controlled substance at discharge?: No
== END ==
LOC: PNWHC3 10:51
PROVIDERS: ATTEND Specialist
DX: S22.070A Wedge compression fracture of T9-T10 vertebra, initial encounter for closed fracture (principal); X58.XXXA Exposure to other specified factors, initial encounter; Z88.2 Allergy status to sulfonamides; Z88.1 Allergy status to other antibiotic agents
CPT/HCPCS: 99211

== ENCOUNTER 2022-11-29 08:01 | Day surgery (SDC) | payer OTHER ==
[2022-11-25 12:11] VITALS: BMI 35.2
[2022-11-29] MEDS ORDERED: LACTATED RINGERS 1,000 ML IV SCH (08:15)
[2022-11-29 08:26] VITALS: TEMP 97.7
[2022-11-29] MEDS ORDERED: MIDAZOLAM 2 MG/2 ML VIAL ONE (08:38)
[2022-11-29] MEDS ORDERED: fentaNYL (PF) 50 MCG/ML 2 ML AMP ONE (08:38)
[2022-11-29] MEDS ORDERED: ROPIVACAINE 5MG/ML 20ML VIAL ONE (08:41)
[2022-11-29] MEDS ORDERED: methylPREDNISolone ACETATE 40 MG/ML 1 ML VIAL ONE (08:41)
--- NOTE | 2022-11-29 08:55 | P.PCN ---
Date of Procedure: 11/29/22 Procedure(s) Performed: PREOPERATIVE DIAGNOSIS : 1-thoracic spondylosis with Facet Arthropathy without myelopathy . 2-compression fractures thoracic spine POSTOPERATIVE DIAGNOSIS: 1- thoracic spondylosis with Facet Arthropathy without myelopathy . 2- compression fracture thoracic spine PROCEDURE: Diagnostic left side T8 , T9 , T10 medial branch block under fluoroscopy guidance(fluoroscopy images available in the radiology Department ) ( To target the facet joint between left side T8-9 , T9-10)#1st ANESTHESIA:, Monitored anesthesia care as per anesthesia department. EBL: Minimal COMPLICATION: None PROCEDURE INDICATION: Chronic low back pain secondary to Facet arthropathy unresponsive to conservative treatment. PROCEDURE DESCRIPTION: the patient was seen and identified in the preop holding area , risks and benefits and possible complications of the procedure and alternative were discussed with the patient, and the patient agreed to proceed with the procedure and signed the consent and vital signs monitored during the procedure and fluoroscopy was used to maximize the benefit and accuracy of the needle placement, and sedation was given to decrease patient anxiety, patient was taken to the procedure room and placed in prone position vital signs monitored in the back prepped with chlorhexidine X3 then under strict sterile technique using a right oblique fluoroscopy ,the junction of the transverse process and the superior articulating process of the left T8 , T9 , T10 vertebra which corresponding to the fluoroscopy image of the eye of the [place] dog on the block side for the medial branches and subsequently , after local infiltration of skin and subcu tissuies with Ropivacaine 0.5 % , one mL at each level ,then 22-gauge Quincke-type needles , 3 needle was used , each one of them placed at the junction of the base of the transverse process and the superior articular process at the appropriate level, and the needle was advanced until the periosteum contacted, needle placement confirmed with AP oblique and lateral view and after appropriate needle placement confirmed, and after negative aspiration for heme and CSF and there was no paresthesia 1-1/2 mL of Ropivacaine 0.5% mixed with 20 mg Depo-Medrol , then half mL injected at each level after negative aspiration the needle subsequently removed . At the end of the procedure and the needles removed and a bandage applied after the skin was cleaned the cleaning solution patient taken to recovery room in stable condition and monitors in the recovery room for 20-30 minutes and discharged home in stable condition after discharge criteria met and patient will follow up with the pain clinic in 2-4 weeks
[2022-11-29] MEDS ORDERED: IV FLUID CONTINUATION 1,000 ML IV ONE ×2 (08:56)
[2022-11-29 09:01] VITALS: RESP 16
[2022-11-29 09:11] VITALS: BP 133/86; PULSE 82
--- NOTE | 2022-11-29 12:22 | FL ---
EXAMINATION TYPE: FL guided pain mgmt statistic DATE OF EXAM: 11/29/2022 FLUOROSCOPY Fluoroscopy time of 11 seconds was used during thoracic facet blocks. 2 image/s document/s the heidy mayen. DAP [id number] mGycm2
== END 2022-11-29 09:20 | disposition home or self-care (01) ==
LOC: ORPAIN 08:01
DX: M48.54XA Collapsed vertebra, not elsewhere classified, thoracic region, initial encounter for fracture (principal); M47.814 Spondylosis without myelopathy or radiculopathy, thoracic region; K21.9 Gastro-esophageal reflux disease without esophagitis; J45.909 Unspecified asthma, uncomplicated; Z79.899 Other long term (current) drug therapy; Z88.2 Allergy status to sulfonamides; Z88.1 Allergy status to other antibiotic agents; X58.XXXA Exposure to other specified factors, initial encounter
CPT/HCPCS: 64490; 64491; J2250; J1030; J3010; J2795

== ENCOUNTER → 2022-12-26 | Outpatient (CLI) | payer OTHER ==
[2022-12-26 12:25] VITALS: BP 131/84; PULSE 95; RESP 16; TEMP 98.3
--- NOTE | 2022-12-26 12:34 | P.PAINPG ---
PQRS Measure Charge Sheet Comment: HISTORY OF PRESENT ILLNESS: 32 yr old presents today w severe and chronic thoracolumbar pain secondary to DDD, spondylosis and facet arthropathy without myelopathy for evaluation s/p L MBB T8-T9, T9-T10 #1. Pt states he experienced 100 % pain relief x 1 wk s/p procedure. Pt states pain level is provoked at 7/10 in intensity, constant, localized in the center lumbar spine, burning in character without shooting pain. Pain is provoked by bending, lifting. Pain is alleviated by PT x 10 wks in Apr 2022, use of massage chair at home, chiropractic treatments weekly x 2 mo in Oct 2022, medications, Lidoderm, resting and rest. Oswestry axial pain score of 18. Inteventional procedures include JORGE ALBERTO T8-9 x1, L MBB T8-T10 x1 Medications include [place], Valium NSAIDs, Lidoderm REVIEW OF ORGAN SYSTEMS: CONSTITUTIONAL: No fevers or chills. No recent weight loss. NEUROLOGICAL: + numbness and tingling along the distal extremities. No seizure disorders or headaches. MUSCULOSKELETAL: + pain PSYCHIATRIC: Denies current depression or suicidal thoughts. Physical Examinations : Constitutional : Cooperative , not in acute distress . Neurologic : Cranial nerve II to XII intact. No focal neurological deficits. Psychiatric : alert & oriented x 3. Matching mood & appropriate affect. Judgment & insight intact. Musculoskeletal : Cervical Spine Motor strength in the deltoid and biceps: Normal right side. Normal Left side Motor strength biceps and the wrist extensors: Normal right side . Normal left side Motor strength in the triceps muscle: Normal right side. Normal left side Deep tendon reflexes: Normal at the biceps. Normal at Brachioradialis. Normal at triceps Vertebral body tenderness to deep palpation over Cervical facet loading test: positive bilaterally Spurling test: positive bilaterally Neck distraction test: positive bilaterally Terry sign: positive bilaterally Thoracic spine Facet loading test positive over L T8- 9, T9-10 Lumbar spine Motor strength lower extremities ,thigh and legs 5/5 Right side , 5/5 Left side Deep tendon reflexes : Normal Knee Jerk. Normal Ankle Jerk Vertebral body tenderness over Lainez Test positive Lumbar facet Loading Test: positive Right / positive Left Range of motion of the lumbar spine Flexion 30 degrees, extension 10 degrees Straight Leg Raise test: Left/ Right positive at degree Luis test: positive right / positive left. Severe tenderness over the Sacroiliac joint on the Right / Left sides Gaenslen test: positive bilaterally Seated flexion test: positive bilaterally. Sacral spine : Severe tenderness over the Sacroiliac joint: right side / left side Range of motion: Flexion of the lumbar spine <60 degrees Range of motion: Extension of the lumbar spine <20 degrees Gaenslen's Test positive Christopher's Test positive Luis test: positive right side / left side Thigh Thrust Test Sacral Thrust Test Imaging: Non contrast of the thoracic spine from 10/25/21 reviewed Assessment/ Plan : Thoracic T9 fracture Recommendation of L facet block of the medial branches T8-T9, T9-T10 #2. May need a series of injections, up until RFA, for optimal pain relief. Risks, benefits of procedure discussed and patient verbalized understanding. Admits to aspirin or anti- coagulant use or medical history of diabetes. Protocol for discontinuation/ continuation of medications sukhdeep procedure discussed. Minimal anesthesia provided, if clinically indicated, consisting of Versed and Fentanyl. All questions answered. I have spent greater than 30 minutes on patient care today. Dr Benavides was available by phone for the evaluation of this patient. The time was used to review the medical records including relevant urine studies and Prescription history (MAPs), review of the available imaging, evaluation and examination of the patient, coordination of care with the medical staff and if applicable referring physicians, as well as creation of the medical record PQRS Narrative: Hx Alcohol Use (MH) No Home Medications: Ambulatory Orders Omeprazole [PriLOSEC] 40 mg PO DAILY@1200 11/27/21 Controlled Substance Measures - Controlled Substance Measures Is patient prescribed a controlled substance at discharge?: No
== END ==
LOC: PNWHC3 11:00
PROVIDERS: ATTEND Specialist
DX: S22.079A Unspecified fracture of T9-T10 vertebra, initial encounter for closed fracture (principal); X58.XXXA Exposure to other specified factors, initial encounter; Z88.2 Allergy status to sulfonamides; Z88.8 Allergy status to other drugs, medicaments and biological substances
CPT/HCPCS: 99211

== ENCOUNTER 2023-01-27 20:46 | Emergency (ER) | payer OTHER ==
[2023-01-27] MEDS ORDERED: SODIUM CHLORIDE 0.9% 1,000 ML IV STA (21:47)
[2023-01-27] MEDS ORDERED: diphenhydrAMINE 50 MG/ML 1 ML VIAL IVP STA (21:47)
[2023-01-27] MEDS ORDERED: ONDANSETRON 4 MG/2 ML VIAL IVP STA (21:47)
[2023-01-27] MEDS ORDERED: KETOROLAC 15 MG/ML 1 ML VIAL IVP STA (21:47)
--- NOTE | 2023-01-27 21:48 | ED ---
General Adult HPI - General Chief complaint: Headache Stated complaint: Headache High BP Time Seen by Provider: 01/27/23 21:14 Source: patient Mode of arrival: ambulatory Limitations: no limitations - History of Present Illness Initial comments: Dictation was produced using [employer] dictation software. please excuse any grammatical, word or spelling errors. Chief Complaint: 32-year-old male presents emergency Department with headache History of Present Illness: Patient 32-year-old male presents emergency department for chief complaint of headache. Patient states that he's had a headache for proximally 6 weeks. States that his headache has been almost daily. States that it gets alleviated with Tylenol for approximately 12 hours with the headache returns. He does report a history of intracranial hemorrhages and his close family members. He is not sure if intracranial aneurysms run in his family. Patient has been stressed out because of work. States that the headache is dull ache to his forehead. Denies that this headache is worse headache of his life. States that Friday does not feel worse in the morning or better night. Is not positional. Denies any numbness and paresthesias to arms or legs. Denies any gait ataxia.Patient did report seeking medical care with his primary care doctor. PCP recommended computed tomography scan done on outpatient basis however patient has not been authorized for it. The ROS documented in this emergency department record has been reviewed and confirmed by me. Those systems with pertinent positive or negative responses have been documented in the HPI. All other systems are other negative and/or noncontributory. - Related Data Home Medications Medication Instructions Recorded Confirmed Omeprazole [PriLOSEC] 40 mg PO DAILY 11/27/21 01/27/23 Albuterol Inhaler [Ventolin Hfa 2 puff INHALATION RT-Q4H PRN 01/27/23 01/27/23 Inhaler] Cyclobenzaprine [Flexeril] 10 mg PO Q8H PRN 01/27/23 01/27/23 Fluticasone Propionate 110 Mcg 2 puff INHALATION RT-BID PRN 01/27/23 01/27/23 [Flovent 110 Mcg Inhaler] HYDROcodone/APAP 7.5-325MG [[place] 1 tab PO Q6H PRN 01/27/23 01/27/23 7.5-325] Naproxen [EC-Naprosyn] 500 mg PO BID PRN 01/27/23 01/27/23 Allergies Allergy/AdvReac Type Severity Reaction Status Date / Time cefprozil [From Cefzil] Allergy Rash/Hives Verified 01/27/23 22:02 Sulfa (Sulfonamide Allergy Rash/Hives Verified 01/27/23 22:02 Antibiotics) Review of Systems ROS Statement: Those systems with pertinent positive or pertinent negative responses have been documented in the HPI. ROS Other: All systems not noted in ROS Statement are negative. Past Medical History Past Medical History: Asthma, GERD/Reflux Additional Past Medical History / Comment(s): T9 compression fracture, September 22. Hemorrhoids. Rectal pain, perianal abcess lanced and drained. History of Any Multi-Drug Resistant Organisms: None Reported, MRSA Date of last positivie culture/infection: 2016 MDRO Source:: "can't remember" Past Surgical History: Adenoidectomy, Orthopedic Surgery, Tonsillectomy Additional Past Surgical History / Comment(s): Plate and bolt in right hand, bolt in bilateral ankles. PAIN CLINIC PROCEDURES Past Anesthesia/Blood Transfusion Reactions: No Reported Reaction Past Psychological History: No Psychological Hx Reported Smoking Status: Former smoker Past Alcohol Use History: Occasional Past Drug Use History: None Reported - Past Family History Mother Family Medical History: No Reported History General Exam - General Exam Comments Initial Comments: PHYSICAL EXAM: General Impression: Alert and oriented x3, not in acute distress HEENT: Normocephalic atraumatic, extra-ocular movements intact, pupils equal and reactive to light bilaterally, mucous membranes moist. Cardiovascular: Heart regular rate and rhythm Chest: Able to complete full sentences, no retractions, no tachypnea Abdomen: abdomen soft, non-tender, non-distended, no organomegaly Musculoskeletal: Pulses present and equal in all extremities, no peripheral edema Motor: no focal deficits noted Neurological: CN II-XII grossly intact, no focal motor or sensory deficits noted Skin: Intact with no visualized rashes Psych: Normal affect and mood Limitations: no limitations Course Vital Signs 01/27/23 01/27/23 20:47 22:45 Temperature 97.5 F L Pulse Rate 114 H 97 Respiratory 18 16 Rate Blood Pressure 144/103 123/78 O2 Sat by Pulse 99 95 Oximetry EKG Findings - EKG Comments: EKG Findings:: My EKG interpretation: Ventricular rate 107, sinus tachycardia,. 156, QRS 84, QTC 397. No [place] prolongation, no QTC prolongation, no ST or T-wave changes noted. . Overall, this EKG is unremarkable Medical Decision Making - Medical Decision Making Was pt. sent in by a medical professional or institution (IM Lopez, SPA MANAGER/ESTHETICIAN, urgent care, hospital, or senior care...) When possible be specific @ -No Did you speak to anyone other than the patient for history (EMS, parent, family, police, friend...)? What history was obtained from this source @ -No Did you review nursing and triage notes (agree or disagree)? Why? @ -I reviewed and agree with nursing and triage notes Were old charts reviewed (outside hosp., previous admission, EMS record, old EKG, old radiological studies, urgent care reports/EKG's, senior care records)? Report findings @ -No old charts were reviewed Differential Diagnosis (chest pain, altered mental status, abdominal pain women, abdominal pain men, vaginal bleeding, musculoskeletal, weakness, fever, dyspnea, syncope, headache, dizziness, GI bleed, back pain, seizure, CVA, palpatations, mental health)? @ -Differential Headache: Migraine, tension, cluster, carbon monoxide, central venous thrombosis, pension karma temporal arteritis, acute closure glaucoma, intercranial hemorrhage, mastoiditis, sinusitis, head injury, this is not meant to be an all-inclusive list. EKG interpreted by me (3pts min.). @ -None done X-rays interpreted by me (1pt min.). @ -None done CT interpreted by me (1pt min.). @ -Computed tomography scan of the brain and C-spine shows no intracranial mass. CT angiography shows no aneurysms U/S interpreted by me (1pt. min.). @ -None done What testing was considered but not performed or refused? (CT, X-rays, U/S, labs)? Why? @ -None What meds were considered but not given or refused? Why? @ -None Did you discuss the management of the patient with other professionals (professionals i.e. MI Lopez, SPA MANAGER/ESTHETICIAN, lab, RT, psych nurse, social media project manager, valve steamer, teacher, eeo officer, case resolution specialist)? Give summary @ -No Was smoking cessation discussed for >3mins.? @ -No Was critical care preformed (if so, how long)? @ -No Were there social determinants of health that impacted care today? How? (Homelessness, low income, unemployed, alcoholism, drug addiction, t ransportation, low edu. Level, literacy, decrease access to med. care, longterm, rehab)? @ -No Was there de-escalation of care discussed even if they declined (Discuss DNR or withdrawal of care, Hospice)? DNR status @ -No What co-morbidities impacted this encounter? (DM, HTN, Smoking, COPD, CAD, Cancer, CVA, ARF, Chemo, Hep., AIDS, mental health diagnosis, sleep apnea, morbid obesity)? @ -None Was patient admitted / discharged? Hospital course, mention meds given and route, prescriptions, significant lab abnormalities, going to OR and other pertinent info. @ -32-year-old male presents emergency Department with several weeks of headache. Vital signs stable. Patient has no high-risk features. Imaging studies are negative. Patient given headache cocktail with improvement of headache symptoms. Patient's blood pressure also improved. Patient discharged. Advised to follow-up with primary care doctor. Undiagnosed new problem with uncertain prognosis? @ -No Drug Therapy requiring intensive monitoring for toxicity (Heparin, Nitro, Insulin, Cardizem)? @ -No Were any procedures done? @ -No Diagnosis/symptom? Acute, or Chronic, or Acute on Chronic? Uncomplicated (without systemic symptoms) or Complicated (systemic symptoms)? @ -Headache Side effects of treatment? @ -No Exacerbation, Progression, or Severe Exacerbation? @ -No Poses a threat to life or bodily function? How? (Chest pain, [place], AR, pneumonia, PE, COPD, DKA, ARF, appy, cholecystitis, CVA, Diverticulitis, Homicidal, Suicidal, threat to staff... and all critical care pts) @ -No - Lab Data Result diagrams: 01/27/23 21:39 01/27/23 21:39 Lab Results 01/27/23 01/27/23 Range/Units 21:39 21:39 WBC 9.5 (3.8-10.6) k/uL RBC 5.03 (4.30-5.90) m/uL Hgb 15.2 (13.0-17.5) gm/dL Hct 44.6 (39.0-53.0) % MCV 88.5 (80.0-100.0) fL MCH 30.2 (25.0-35.0) pg MCHC 34.2 (31.0-37.0) g/dL RDW 11.8 (11.5-15.5) % Plt Count 241 (150-450) k/uL MPV 8.4 Neutrophils % 64 % Lymphocytes % 27 % Monocytes % 6 % Eosinophils % 2 % Basophils % 0 % Neutrophils # 6.0 (1.3-7.7) k/uL Lymphocytes # 2.5 (1.0-4.8) k/uL Monocytes # 0.6 (0-1.0) k/uL Eosinophils # 0.2 (0-0.7) k/uL Basophils # 0.0 (0-0.2) k/uL Sodium 139 (137-145) mmol/L Potassium 4.4 (3.5-5.1) mmol/L Chloride 103 (98-107) mmol/L Carbon Dioxide 23 (22-30) mmol/L Anion Gap 13 mmol/L BUN 21 H (9-20) mg/dL Creatinine 0.77 (0.66-1.25) mg/dL Est GFR (CKD-EPI)AfAm >90 (>60 ml/min/1.73 sqM) Est GFR (CKD-EPI)NonAf >90 (>60 ml/min/1.73 sqM) Glucose 107 H (74-99) mg/dL Calcium 9.8 (8.4-10.2) mg/dL Disposition Clinical Impression: Headache Disposition: HOME SELF-CARE Condition: Good Instructions (If sedation given, give patient instructions): Acute Headache (ED) Is patient prescribed a controlled substance at d/c from ED?: No Referrals: Dulce Rankin NPC [Primary Care Provider] - 1-2 days Time of Disposition: 23:37
[2023-01-27 21:56] LABS: Basophils % (A) 0 %; Eosinophils # (A) 0.2 k/uL (0-0.7); Eosinophils % (A) 2 %; HCT 44.6 % (39.0-53.0); HGB 15.2 gm/dL (13.0-17.5); Lymphocytes # (A) 2.5 k/uL (1.0-4.8); Lymphocytes % (A) 27 %; MCH 30.2 pg (25.0-35.0); MCHC 34.2 g/dL (31.0-37.0); MCV 88.5 fL (80.0-100.0); Mean Platelet Volume 8.4; Monocytes # (A) 0.6 k/uL (0-1.0); Monocytes % (A) 6 %; Neutrophils % (A) 64 %; Platelet Count 241 k/uL (150-450); RBC 5.03 m/uL (4.30-5.90); RDW 11.8 % (11.5-15.5); WBC 9.5 k/uL (3.8-10.6)
[2023-01-27 22:05] LABS: African American GFR (CKD) >90 (>60 ml/min/1.73 sqM); Anion Gap 13 mmol/L; Blood Urea Nitrogen 21 mg/dL (9-20); Calcium 9.8 mg/dL (8.4-10.2); Carbon Dioxide 23 mmol/L (22-30); Chloride 103 mmol/L (98-107); Glucose 107 mg/dL (74-99); Non-African American GFR(CKD) >90 (>60 ml/min/1.73 sqM); Potassium 4.4 mmol/L (3.5-5.1); Sodium 139 mmol/L (137-145)
--- NOTE | 2023-01-27 22:54 | CT ---
EXAM: CT Head Without Intravenous Contrast CLINICAL HISTORY: ITS.REASON CT Reason: daily headache TECHNIQUE: Axial computed tomography images of the head/brain without intravenous contrast. CTDI is 49.1 mGy and DLP is 1156 mGy-cm. This CT exam was performed using one or more of the following dose reduction techniques: automated exposure control, adjustment of the mA and/or kV according to patient size, and/or use of iterative reconstruction technique. COMPARISON: No relevant prior studies available. FINDINGS: No acute intracranial hemorrhage. No midline shift or mass effect. The territorial freedman-white matter differentiation is maintained throughout. The ventricles and sulci are commensurate with age. The visualized orbits appear grossly unremarkable. The calvarium is intact. The visualized paranasal sinuses and mastoid air cells are grossly clear. IMPRESSION: No acute intracranial hemorrhage, midline shift, or mass effect.
--- NOTE | 2023-01-27 22:55 | CT ---
EXAM: CT Angiography Head With Intravenous Contrast CLINICAL HISTORY: ITS.REASON CT Reason: headache, fam hx of aneurysms TECHNIQUE: Axial computed tomographic angiography images of the head with intravenous contrast. CTDI is 49.1 mGy and DLP is 1156 mGy-cm. This CT exam was performed using one or more of the following dose reduction techniques: automated exposure control, adjustment of the mA and/or kV according to patient size, and/or use of iterative reconstruction technique. MIP reconstructed images were created and reviewed. COMPARISON: No relevant prior studies available. FINDINGS: Right internal carotid artery: No acute findings. Intracranial segment is patent with no significant stenosis. No aneurysm. Right anterior cerebral artery: Unremarkable. No occlusion or significant stenosis. No aneurysm. Right middle cerebral artery: Unremarkable. No occlusion or significant stenosis. No aneurysm. Right posterior cerebral artery: Unremarkable. No occlusion or significant stenosis. No aneurysm. Left internal carotid artery: No acute findings. Intracranial segment is patent with no significant stenosis. No aneurysm. Left anterior cerebral artery: Unremarkable. No occlusion or significant stenosis. No aneurysm. Left middle cerebral artery: Unremarkable. No occlusion or significant stenosis. No aneurysm. Left posterior cerebral artery: Unremarkable. No occlusion or significant stenosis. No aneurysm. IMPRESSION: No acute cranial aneurysm. No large vessel occlusion. EXAM: CT Angiography Neck With Intravenous Contrast CLINICAL HISTORY: ITS.REASON CT Reason: headache, fam hx of aneurysms TECHNIQUE: Routine carotid CT angiography protocol was performed with intravenous contrast. NASCET criteria using the distal ICAs for comparison were used for evaluation of stenoses. CTDI is 19.4 mGy and DLP is 817.1 mGy-cm. This CT exam was performed using one or more of the following dose reduction techniques: automated exposure control, adjustment of the mA and/or kV according to patient size, and/or use of iterative reconstruction technique. MIP reconstructed images were created and reviewed. COMPARISON: None. FINDINGS: VASCULATURE: Right common carotid artery: Unremarkable. No occlusion or significant stenosis. No dissection. Right internal carotid artery: Unremarkable. Extracranial segment is patent with no occlusion or significant stenosis. No dissection. Right external carotid artery: Unremarkable. No occlusion. Right vertebral artery: Unremarkable. No occlusion or significant stenosis. No dissection. Left common carotid artery: Unremarkable. No occlusion or significant stenosis. No dissection. Left internal carotid artery: Unremarkable. Extracranial segment is patent with no occlusion or significant stenosis. No dissection. Left external carotid artery: Unremarkable. No occlusion. Left vertebral artery: Unremarkable. No occlusion or significant stenosis. No dissection. IMPRESSION: Negative CTA neck.
[2023-01-27] MEDS ORDERED: ACETAMINOPHEN TAB 500 MG TAB PO STA (23:05)
[2023-01-27 23:50] VITALS: BP 129/92; PULSE 93; RESP 18; TEMP 98.6
== END 2023-01-27 23:49 | disposition home or self-care (01) ==
LOC: EC 20:46
DX: R51.9 Headache, unspecified (principal); K21.9 Gastro-esophageal reflux disease without esophagitis; J45.909 Unspecified asthma, uncomplicated; Z87.891 Personal history of nicotine dependence; Z79.899 Other long term (current) drug therapy; Z88.2 Allergy status to sulfonamides; Z88.1 Allergy status to other antibiotic agents
CPT/HCPCS: 36415; 93005; 80048; 85025; 70496; 70450; 70498; 99285; 96374; 96375 ×2; 96361; J1200; J2405; J1885; Q9967

== ENCOUNTER → 2023-02-05 | Outpatient (CLI) | payer OTHER ==
[2023-02-05 11:36] VITALS: BP 130/93; PULSE 88; RESP 16; TEMP 97.8
--- NOTE | 2023-02-05 14:58 | P.PAINPG ---
PQRS Measure Charge Sheet Comment: HISTORY OF PRESENT ILLNESS: 32 yr old presents today w severe and chronic thoracolumbar pain secondary to DDD, spondylosis and facet arthropathy without myelopathy for evaluation s/p L MBB T8-T9, T9-T10 #2. Pt states he experienced 90 % pain relief x 4 days s/p procedure. Pt states pain level is provoked at 8/10 in intensity, constant, localized L of center of the thoracic spine, axial and burning in character without shooting pain. Pain is provoked by bending, lifting. Pain is alleviated by PT x 10 wks in Apr 2022, use of massage chair at home, chiropractic treatments weekly x 2 mo in Oct 2022, medications, Lidoderm, resting and rest. Oswestry axial pain score of 20. Inteventional procedures include JORGE ALBERTO T8-9 x1, L MBB T8-T10 x1 Medications include [place], Tyl, Valium, NSAIDs, Lidoderm REVIEW OF ORGAN SYSTEMS: CONSTITUTIONAL: No fevers or chills. No recent weight loss. NEUROLOGICAL: + numbness and tingling along the distal extremities. No seizure disorders or headaches. MUSCULOSKELETAL: + pain PSYCHIATRIC: Denies current depression or suicidal thoughts. Physical Examinations : Constitutional : Cooperative , not in acute distress . Neurologic : Cranial nerve II to XII intact. No focal neurological deficits. Psychiatric : alert & oriented x 3. Matching mood & appropriate affect. Judgment & insight intact. Musculoskeletal : Cervical Spine Motor strength in the deltoid and biceps: Normal right side. Normal Left side Motor strength biceps and the wrist extensors: Normal right side . Normal left side Motor strength in the triceps muscle: Normal right side. Normal left side Deep tendon reflexes: Normal at the biceps. Normal at Brachioradialis. Normal at triceps Vertebral body tenderness to deep palpation over Cervical facet loading test: positive bilaterally Spurling test: positive bilaterally Neck distraction test: positive bilaterally Terry sign: positive bilaterally Thoracic spine Facet loading test positive over L T8- 9, T9-10 Lumbar spine Motor strength lower extremities ,thigh and legs 5/5 Right side , 5/5 Left side Deep tendon reflexes : Normal Knee Jerk. Normal Ankle Jerk Vertebral body tenderness over Lainez Test positive Lumbar facet Loading Test: positive Right / positive Left Range of motion of the lumbar spine Flexion 30 degrees, extension 10 degrees Straight Leg Raise test: Left/ Right positive at degree Luis test: positive right / positive left. Severe tenderness over the Sacroiliac joint on the Right / Left sides Gaenslen test: positive bilaterally Seated flexion test: positive bilaterally. Sacral spine : Severe tenderness over the Sacroiliac joint: right side / left side Range of motion: Flexion of the lumbar spine <60 degrees Range of motion: Extension of the lumbar spine <20 degrees Gaenslen's Test positive Christopher's Test positive Luis test: positive right side / left side Thigh Thrust Test Sacral Thrust Test Imaging: Non contrast of the thoracic spine from 10/25/21 reviewed Assessment/ Plan : Thoracic T9 fracture Recommendation of L RFA T8-T9, T9-T10. Pt exhibited optimal pain relief w prior MBB procedures. Risks, benefits of procedure discussed and patient verbalized understanding. Admits to aspirin or anti- coagulant use or medical history of diabetes. Protocol for discontinuation/ continuation of medications sukhdeep procedure discussed. Minimal anesthesia provided, if clinically indicated, consisting of Versed and Fentanyl. All questions answered. I have spent greater than 30 minutes on patient care today. Dr Benavides was available by phone for the evaluation of this patient. The time was used to review the medical records including relevant urine studies and Prescription history (MAPs), review of the available imaging, evaluation and examination of the patient, coordination of care with the medical staff and if applicable referring physicians, as well as creation of the medical record PQRS Narrative: Hx Alcohol Use (MH) No Home Medications: Ambulatory Orders Omeprazole [PriLOSEC] 40 mg PO DAILY 11/27/21 Albuterol Inhaler [Ventolin Hfa Inhaler] 2 puff INHALATION RT-Q4H PRN 01/27/23 Cyclobenzaprine [Flexeril] 10 mg PO Q8H PRN 01/27/23 Fluticasone Propionate 110 Mcg [Flovent 110 Mcg Inhaler] 2 puff INHALATION RT- BID PRN 01/27/23 HYDROcodone/APAP 7.5-325MG [[place] 7.5-325] 1 tab PO Q6H PRN 01/27/23 Naproxen [EC-Naprosyn] 500 mg PO BID PRN 01/27/23 Controlled Substance Measures - Controlled Substance Measures Is patient prescribed a controlled substance at discharge?: No
== END ==
LOC: PNWHC3 10:56
PROVIDERS: ATTEND Specialist
DX: S22.079A Unspecified fracture of T9-T10 vertebra, initial encounter for closed fracture (principal); Z88.2 Allergy status to sulfonamides; Z88.1 Allergy status to other antibiotic agents; X58.XXXA Exposure to other specified factors, initial encounter
CPT/HCPCS: 99211

== ENCOUNTER 2023-02-21 07:32 | Day surgery (SDC) | payer OTHER ==
[2023-02-18 15:46] VITALS: BMI 36.2
[2023-02-21] MEDS ORDERED: LACTATED RINGERS 1,000 ML IV SCH (07:39)
[2023-02-21 08:16] VITALS: RESP 16; TEMP 98
[2023-02-21] MEDS ORDERED: MIDAZOLAM 2 MG/2 ML VIAL ONE (08:19)
[2023-02-21] MEDS ORDERED: fentaNYL (PF) 50 MCG/ML 2 ML AMP ONE (08:19)
[2023-02-21] MEDS ORDERED: methylPREDNISolone ACETATE 40 MG/ML 1 ML VIAL ONE (08:26)
[2023-02-21] MEDS ORDERED: ROPIVACAINE 5MG/ML 20ML VIAL ONE (08:26)
[2023-02-21] MEDS ORDERED: IV FLUID CONTINUATION 1,000 ML IV ONE (08:45)
--- NOTE | 2023-02-21 08:49 | P.PCN ---
Date of Procedure: 02/21/23 Procedure(s) Performed: PREOPERATIVE DIAGNOSIS: 1-Thoracic Spondylosis with Facet Arthropathy without myelopathy. POSTOPERATIVE DIAGNOSIS: 1- Thoracic Spondylosis with Facet Arthropathy without myelopathy. PROCEDURES : Left Radiofrequency thermocoagulation,T8 ,T9 ,T10 medial branch, with fluoroscopic guidance (fluoroscopy images available in the radiology department) ( to denervate the facet joint at Left T8-9 ,T9-10 levels ). ANESTHESIA: Monitored anesthesia care as per anesthesia department . EBL: Minimal PROCEDURE INDICATION: The patient with low back pain secondary to lumbar facet arthropathy who had more than 80% relief of her pain with previous diagnostic lumbar medial branch block with bupivacaine. PROCEDURE DESCRIPTION / TECHNIQUE: The patient was seen and identified in the preoperative area. Risks, benefits, complications, including but not limited to risk of infection ,bleeding , allergic reactions to the medications and no complete pain releife , and alternatives were discussed with the patient, the patient agreed to proceed with the procedure and signed the consent. IV was started. Vital signs remained stable throughout the procedure. Patient was taken to the OR and time out was completed. The patient was placed in the prone position on the procedure table. The lumber area was prepped and draped in the usual sterile fashion. . Vital signs were closely monitored during the procedure .IV sedation was used during the procedure to decrease patients anxiety. Using AP and then oblique fluoroscopy, the ``eye of the [place] dog corresponding to the connection between the superior and transverse articular processes of Left t8, T9 ,T10 were identified, marked, and localized with 1% lidocaine. Subsequently, a 18 -vx radiofrequency cannula with a 10-mm active tip was advanced guided by fluoroscopy to each of the``eyes of the [place] dog at Left T8 ,T9 ,T10 . Each site then underwent sensory testing at 50 Hz and 0 to 1 volt and motor testing at 2.5 Hz and 0 to 3 volt with local stimulation , but no radicular symptoms down the legs. Thereafter each sites underwent radiofrequency thermocoagulation at 80 degrees celsius for 90 seconds after injecting 0.5 ml of PF Ropivacaine 1ml, then after the thermocoagulation done , 1 ml of the block solution containing Depo-Medrol 20 mg and 3 ml of Ropivacaine 0.5% was injected at the Left T8 ,T9 ,T10 , levels after negative aspiration of CSF and blood and with no paresthesias. Cannulas were retracted while injecting lidocaine 1% until the needle is out. At the end of the procedure, the skin was cleansed and bandages were applied. COMPLICATIONS: No acute complications. DISPOSITION / PLANS: The patient was placed in a supine position and transferred to the recovery area in a stable condition for observation and was discharged from the recovery room after meeting discharge criteria. Home discharge instructions given to the patient by the staff. The patient was reexamined prior to discharge. The patient will schedule a follow up in the clinic in 2-4 weeks.
[2023-02-21 09:10] VITALS: BP 136/88; PULSE 89
--- NOTE | 2023-02-21 09:28 | FL ---
EXAMINATION TYPE: FL guided pain mgmt statistic DATE OF EXAM: 02/21/2023 FLUOROSCOPY Fluoroscopy time of 14 seconds was used during thoracic spine radiofrequency ablation. 3 image/s doc ument/s the procedure. Total DAP 0.79642 mGycm2.
== END 2023-02-21 09:15 | disposition home or self-care (01) ==
LOC: ORPAIN 07:32
PROVIDERS: ATTEND Specialist
DX: M47.814 Spondylosis without myelopathy or radiculopathy, thoracic region (principal); J45.909 Unspecified asthma, uncomplicated; G47.33 Obstructive sleep apnea (adult) (pediatric); Z88.1 Allergy status to other antibiotic agents; Z88.2 Allergy status to sulfonamides
CPT/HCPCS: 64633; 64634; J2250; J1030; J3010; J2795

== ENCOUNTER → 2023-03-24 | Outpatient (CLI) | payer MEDICAID, OTHER ==
[2023-03-24 12:18] VITALS: BP 137/96; PULSE 78; RESP 16; TEMP 98.6
--- NOTE | 2023-03-24 13:27 | P.PAINPG ---
PQRS Measure Charge Sheet Comment: HISTORY OF PRESENT ILLNESS: A 32 yr old presents today w severe and chronic thoracolumbar pain secondary to DDD, spondylosis and facet arthropathy without myelopathy for evaluation s/p L RFAT8-T9, T9-T10. Pt states he experienced 0 % pain relief s/p procedure. Pt states pain level is provoked at 7/10 in intensity, constant, localized L of center of the thoracic spine, predominantly axial and burning in character without shooting pain. Pain is provoked by bending, lifting. Pain is alleviated by PT x 10 wks in Apr 2022, use of massage chair at home, chiropractic treatments weekly x 2 mo in Oct 2022, physician guided home exercises 5 times weekly since Oct 2022, medications, Lidoderm, resting and res t. Oswestry axial pain score of 20. Inteventional procedures include JORGE ALBERTO T8-9 x1, L RFA T8-T10 (Feb 2023) Medications include [place], Tyl, Valium, NSAIDs, Lidoderm REVIEW OF ORGAN SYSTEMS: CONSTITUTIONAL: No fevers or chills. No recent weight loss. NEUROLOGICAL: + numbness and tingling along the distal extremities. No seizure disorders or headaches. MUSCULOSKELETAL: + pain PSYCHIATRIC: Denies current depression or suicidal thoughts. Physical Examinations : Constitutional : Cooperative , not in acute distress . Neurologic : Cranial nerve II to XII intact. No focal neurological deficits. Psychiatric : alert & oriented x 3. Matching mood & appropriate affect. Judgment & insight intact. Musculoskeletal : Cervical Spine Motor strength in the deltoid and biceps: Normal right side. Normal Left side Motor strength biceps and the wrist extensors: Normal right side . Normal left side Motor strength in the triceps muscle: Normal right side. Normal left side Deep tendon reflexes: Normal at the biceps. Normal at Brachioradialis. Normal at triceps Vertebral body tenderness to deep palpation over Cervical facet loading test: positive bilaterally Spurling test: positive bilaterally Neck distraction test: positive bilaterally Terry sign: positive bilaterally Thoracic spine Facet loading test positive Taut bands w twitch response over L T7-T11 Lumbar spine Motor strength lower extremities ,thigh and legs 5/5 Right side , 5/5 Left side Deep tendon reflexes : Normal Knee Jerk. Normal Ankle Jerk Vertebral body tenderness over Lainez Test positive Lumbar facet Loading Test: positive Right / positive Left Range of motion of the lumbar spine Flexion 30 degrees, extension 10 degrees Straight Leg Raise test: Left/ Right positive at degree Luis test: positive right / positive left. Severe tenderness over the Sacroiliac joint on the Right / Left sides Gaenslen test: positive bilaterally Seated flexion test: positive bilaterally. Sacral spine : Severe tenderness over the Sacroiliac joint: right side / left side Range of motion: Flexion of the lumbar spine <60 degrees Range of motion: Extension of the lumbar spine <20 degrees Gaenslen's Test positive Christopher's Test positive Luis test: positive right side / left side Thigh Thrust Test Sacral Thrust Test Imaging: Non contrast of the thoracic spine from 10/25/21 reviewed Assessment/ Plan : Thoracic T9 fracture Recommendation of L TPIs T7-T12. PT integrated w therapeutic massage x 6 wks M51.34. May need a series of injections for optimal pain relief. Risks, benefits of procedure discussed and patient verbalized understanding. Admits to aspirin or anti- coagulant use or medical history of diabetes. Protocol for discontinuation/ continuation of medications sukhdeep procedure discussed. All questions answered. I have spent greater than 30 minutes on patient care today. Dr Benavides was available by phone for the evaluation of this patient. The time was used to review the medical records including relevant urine studies and Prescription history (MAPs), review of the available imaging, evaluation and examination of the patient, coordination of care with the medical staff and if applicable referring physicians, as well as creation of the medical record PQRS Narrative: Hx Alcohol Use (MH) No Home Medications: Ambulatory Orders Omeprazole [PriLOSEC] 40 mg PO DAILY 11/27/21 Albuterol Inhaler [Ventolin Hfa Inhaler] 2 puff INHALATION RT-Q4H PRN 01/27/23 Cyclobenzaprine [Flexeril] 10 mg PO Q8H PRN 01/27/23 Fluticasone Propionate 110 Mcg [Flovent 110 Mcg Inhaler] 2 puff INHALATION RT- BID PRN 01/27/23 HYDROcodone/APAP 7.5-325MG [[place] 7.5-325] 1 tab PO Q6H PRN 01/27/23 Naproxen [EC-Naprosyn] 500 mg PO BID PRN 01/27/23 Controlled Substance Measures - Controlled Substance Measures Is patient prescribed a controlled substance at discharge?: No
== END ==
LOC: PNWHC3 11:18
PROVIDERS: ATTEND Specialist
DX: S22.079A Unspecified fracture of T9-T10 vertebra, initial encounter for closed fracture (principal); Z88.2 Allergy status to sulfonamides; Z88.1 Allergy status to other antibiotic agents
CPT/HCPCS: 99211

== ENCOUNTER 2023-05-06 11:15 | Day surgery (SDC) | payer OTHER, MEDICAID ==
[2023-05-06 11:43] VITALS: TEMP 97.9
[2023-05-06] MEDS ORDERED: methylPREDNISolone ACETATE 80 MG/ML 1 ML VIAL ONE (12:12)
[2023-05-06] MEDS ORDERED: ROPIVACAINE 5MG/ML 20ML VIAL ONE (12:12)
--- NOTE | 2023-05-06 12:22 | P.PCN ---
Date of Procedure: 05/06/23 Procedure(s) Performed: Procedure= trigger point injections left thoracic paraspinal muscles , 4 on the left side from T7 to T12 Preoperative diagnosis= 1-myofascial pain syndrome Thoracic paraspinal muscles 2-thoracic degenerative disc disease 3-Thoracic facet arthropathy Postoperative diagnosis=Same as preop Diagnosis . Complication = none Condition= stable Anesthesia=none Indication for the procedure= patient complaining of left side mid back pain , examination was positive for multiple trigger point in the Left thoracic paraspinal muscles and patient diagnosed with myofascial pain syndrome and is here to have trigger point injections Description of the procedure= procedure risk and benefits discussed with the patient, including but not limited, risk of infection and bleeding, and ALLERGIC reaction to the medication and not complete pain relief and patient agreed with the preceding patient taken to the operating room, placed in sitting position or standard monitors applied to the patient then after induction of anesthesia back prepped with chlorhexidine 3 times , then under sterile technique each of the trigger point that was marked in the preop holding area 4 on the left sidethoracic paraspinal muscles, each one of them injected with the 2 mL of the mixture of ropivacaine 0.5% 8 ML mixed with 80 mg of Depo-Medrol ,and 2 mL of the mixture injected at each trigger point after negative aspiration, using 25- gauge needle, injection done after negative aspiration under was no paresthesia during the injection patient tolerated the procedure well without any complications and he will follow up in the pain clinic in a few weeks Patient will start using Flexeril 10 mg twice a day as needed for muscle spasm
[2023-05-06 12:41] VITALS: BP 135/86; PULSE 85; RESP 16
== END 2023-05-06 12:37 | disposition home or self-care (01) ==
LOC: ORPAIN 11:15
PROVIDERS: ATTEND Specialist
DX: M79.18 Myalgia, other site (principal); M47.814 Spondylosis without myelopathy or radiculopathy, thoracic region; Z88.2 Allergy status to sulfonamides; Z88.8 Allergy status to other drugs, medicaments and biological substances; Z88.1 Allergy status to other antibiotic agents
CPT/HCPCS: 20553; J1040; J2795

== ENCOUNTER → 2023-05-22 | Outpatient (CLI) | payer OTHER, MEDICAID ==
[2023-05-22 11:24] VITALS: BP 139/86; PULSE 89; RESP 15; TEMP 98.5
--- NOTE | 2023-05-22 13:41 | P.PAINPG ---
PQRS Measure Charge Sheet Comment: HISTORY OF PRESENT ILLNESS: A 32 yr old presents today w severe and chronic thoracolumbar pain secondary to DDD, spondylosis and facet arthropathy without myelopathy for evaluation s/p L TPIs T7-T12 #1. Pt states he experienced 100 % pain relief x 2 wks s/p procedure. Pt states pain level is provoked at 2 /10 in intensity, constant, localized L of center of the thoracic spine, predominantly axial and burning in character without shooting pain. Pain is provoked by bending, lifting. Pain is alleviated by PT x 10 wks in Apr 2022, use of massage chair at home, chiropractic treatments weekly x 2 mo in Oct 2022, physician guided home exercises 5 times weekly since Oct 2022, medications, Lidoderm, resting and rest. Oswestry axial pain score of 14. Inteventional procedures include JORGE ALBERTO T8-9 x1, L RFA T8-T10 (Feb 2023), L TPIs T7-T12 x1 Medications include [place], Tyl, Valium, NSAIDs, Lidoderm REVIEW OF ORGAN SYSTEMS: CONSTITUTIONAL: No fevers or chills. No recent weight loss. NEUROLOGICAL: + numbness and tingling along the distal extremities. No seizure disorders or headaches. MUSCULOSKELETAL: + pain PSYCHIATRIC: Denies current depression or suicidal thoughts. Physical Examinations : Constitutional : Cooperative , not in acute distress . Neurologic : Cranial nerve II to XII intact. No focal neurological deficits. Psychiatric : alert & oriented x 3. Matching mood & appropriate affect. Judgment & insight intact. Musculoskeletal : Cervical Spine Motor strength in the deltoid and biceps: Normal right side. Normal Left side Motor strength biceps and the wrist extensors: Normal right side . Normal left side Motor strength in the triceps muscle: Normal right side. Normal left side Deep tendon reflexes: Normal at the biceps. Normal at Brachioradialis. Normal at triceps Vertebral body tenderness to deep palpation over Cervical facet loading test: positive bilaterally Spurling test: positive bilaterally Neck distraction test: positive bilaterally Terry sign: positive bilaterally Thoracic spine Facet loading test positive Taut bands w twitch response over L T7-T11 Lumbar spine Motor strength lower extremities ,thigh and legs 5/5 Right side , 5/5 Left side Deep tendon reflexes : Normal Knee Jerk. Normal Ankle Jerk Vertebral body tenderness over Lainez Test positive Lumbar facet Loading Test: positive Right / positive Left Range of motion of the lumbar spine Flexion 30 degrees, extension 10 degrees Straight Leg Raise test: Left/ Right positive at degree Luis test: positive right / positive left. Severe tenderness over the Sacroiliac joint on the Right / Left sides Gaenslen test: positive bilaterally Seated flexion test: positive bilaterally. Sacral spine : Severe tenderness over the Sacroiliac joint: right side / left side Range of motion: Flexion of the lumbar spine <60 degrees Range of motion: Extension of the lumbar spine <20 degrees Gaenslen's Test positive Christopher's Test positive Luis test: positive right side / left side Thigh Thrust Test Sacral Thrust Test Imaging: Non contrast of the thoracic spine from 10/25/21 reviewed Assessment/ Plan : Thoracic T9 fracture Will manage residual pain and may RTC on an as needed basis. All questions answered. I have spent greater than 30 minutes on patient care today. Dr Benavides was available by phone for the evaluation of this patient. The time was used to review the medical records including relevant urine studies and Prescription history (MAPs), review of the available imaging, evaluation and examination of the patient, coordination of care with the medical staff and if applicable referring physicians, as well as creation of the medical record PQRS Narrative: Hx Alcohol Use (MH) No Home Medications: Ambulatory Orders Omeprazole [PriLOSEC] 40 mg PO QAM 11/27/21 Albuterol Inhaler [Ventolin Hfa Inhaler] 2 puff INHALATION RT-Q4H PRN 01/27/23 Fluticasone Propionate 110 Mcg [Flovent 110 Mcg Inhaler] 2 puff INHALATION RT- BID PRN 01/27/23 HYDROcodone/APAP 7.5-325MG [[place] 7.5-325] 1 tab PO Q6H PRN 01/27/23 Naproxen [EC-Naprosyn] 500 mg PO BID PRN 01/27/23 Cyclobenzaprine [Flexeril] 10 mg PO Q8H PRN 30 Days #60 tab 05/06/23 Controlled Substance Measures - Controlled Substance Measures Is patient prescribed a controlled substance at discharge?: No
== END ==
LOC: PNWHC3 10:33
PROVIDERS: ATTEND Specialist
DX: S22.079A Unspecified fracture of T9-T10 vertebra, initial encounter for closed fracture (principal); Z88.2 Allergy status to sulfonamides; Z88.1 Allergy status to other antibiotic agents; X58.XXXA Exposure to other specified factors, initial encounter
CPT/HCPCS: 99211

== ENCOUNTER 2023-06-06 08:46 | Emergency (ER) | payer OTHER, MEDICAID ==
[2023-06-06 09:36] VITALS: RESP 18
--- NOTE | 2023-06-06 10:44 | ED ---
General Adult HPI - General Chief complaint: Skin/Abscess/Foreign Body Stated complaint: Rash Time Seen by Provider: 06/06/23 09:14 Source: patient, RN notes reviewed Mode of arrival: ambulatory Limitations: no limitations - History of Present Illness Initial comments: Patient is a pleasant 33-year-old male presenting to the emergency department with rash. Patient was on recent vacation. Patient does not know of any bug bites. Patient has areas involving mostly his right arm however a little bit of his leg and left arm and 1 on his face. Patient complains of itching. No fevers. No history of similar symptoms previously. No upper respiratory symptoms - Related Data Home Medications Medication Instructions Recorded Confirmed Omeprazole [PriLOSEC] 40 mg PO QAM 11/27/21 04/29/23 Albuterol Inhaler [Ventolin Hfa 2 puff INHALATION RT-Q4H PRN 01/27/23 04/29/23 Inhaler] Fluticasone Propionate 110 Mcg 2 puff INHALATION RT-BID PRN 01/27/23 04/29/23 [Flovent 110 Mcg Inhaler] HYDROcodone/APAP 7.5-325MG [[place] 1 tab PO Q6H PRN 01/27/23 04/29/23 7.5-325] Naproxen [EC-Naprosyn] 500 mg PO BID PRN 01/27/23 04/29/23 Previous Rx's Medication Instructions Recorded Cyclobenzaprine [Flexeril] 10 mg PO Q8H PRN 30 Days #60 tab 05/06/23 predniSONE [Deltasone] 2 tab PO DAILY #8 tab 06/06/23 Allergies Allergy/AdvReac Type Severity Reaction Status Date / Time cefprozil [From Cefzil] Allergy Rash/Hives Verified 06/06/23 09:12 Sulfa (Sulfonamide Allergy Rash/Hives Verified 06/06/23 09:12 Antibiotics) Review of Systems ROS Statement: Those systems with pertinent positive or pertinent negative responses have been documented in the HPI. ROS Other: All systems not noted in ROS Statement are negative. Constitutional: Denies: fever, chills, weakness, night sweats Eyes: Denies: eye pain ENT: Denies: ear pain Respiratory: Denies: cough, dyspnea Cardiovascular: Denies: chest pain Endocrine: Denies: fatigue Gastrointestinal: Denies: abdominal pain, nausea, vomiting Skin: Reports: as per HPI, rash Past Medical History Past Medical History: Asthma, GERD/Reflux Additional Past Medical History / Comment(s): T9 compression fracture, September 22. Hemorrhoids. Rectal pain, perianal abcess lanced and drained. History of Any Multi-Drug Resistant Organisms: MRSA Date of last positivie culture/infection: 2016 MDRO Source:: "can't remember" Past Surgical History: Adenoidectomy, Orthopedic Surgery, Tonsillectomy Additional Past Surgical History / Comment(s): Plate and bolt in right hand, bolt in bilateral ankles. PAIN CLINIC PROCEDURES Past Anesthesia/Blood Transfusion Reactions: No Reported Reaction Past Psychological History: No Psychological Hx Reported Smoking Status: Former smoker Past Alcohol Use History: Occasional Past Drug Use History: None Reported - Past Family History Mother Family Medical History: No Reported History General Exam Limitations: no limitations General appearance: alert, in no apparent distress Head exam: Present: normocephalic Eye exam: Present: normal appearance Neck exam: Present: normal inspection Respiratory exam: Present: normal lung sounds bilaterally Cardiovascular Exam: Present: regular rate, normal rhythm GI/Abdominal exam: Present: soft. Absent: tenderness Extremities exam: Present: normal inspection Neurological exam: Present: alert Psychiatric exam: Present: normal affect, normal mood Skin exam: Present: urticaria (Patient does have urticaria type rash mostly right arm. There are a couple spots of the right leg and 1 on the face. Patient has a couple lesions that do have central puncture consistent with potential bug bite) Course Vital Signs 06/06/23 09:11 Temperature 98.4 F Pulse Rate 100 Respiratory 18 Rate Blood Pressure 139/100 O2 Sat by Pulse 99 Oximetry Medical Decision Making - Medical Decision Making Was pt. sent in by a medical professional or institution (, PA, MATCHBOOK ASSEMBLER, urgent care, hospital, or usp...) When possible be specific @ -No Did you speak to anyone other than the patient for history (EMS, parent, family, police, friend...)? What history was obtained from this source @ -No Did you review nursing and triage notes (agree or disagree)? Why? @ -I reviewed and agree with nursing and triage notes Were old charts reviewed (outside hosp., previous admission, EMS record, old EKG, old radiological studies, urgent care reports/EKG's, usp records)? Report findings @ -No old charts were reviewed Differential Diagnosis (chest pain, altered mental status, abdominal pain women, abdominal pain men, vaginal bleeding, weakness, fever, dyspnea, syncope, headache, dizziness, GI bleed, back pain, seizure, CVA, palpatations, mental health, musculoskeletal)? @ -Not applicable EKG interpreted by me (3pts min.). @ -As above X-rays interpreted by me (1pt min.). @ -None done CT interpreted by me (1pt min.). @ -None done U/S interpreted by me (1pt. min.). @ -None done What testing was considered but not performed or refused? (CT, X-rays, U/S, labs)? Why? @ -None What meds were considered but not given or refused? Why? @ -None Did you discuss the management of the patient with other professionals (professionals i.e. , PA, MATCHBOOK ASSEMBLER, lab, RT, psych nurse, social worker aide, cook station, teacher, security flex officer, case management director)? Give summary @ -No Was smoking cessation discussed for >3mins.? @ -No Was critical care preformed (if so, how long)? @ -No Were there social determinants of health that impacted care today? How? (Homelessness, low income, unemployed, alcoholism, drug addiction, transportation, low edu. Level, literacy, decrease access to med. care, shelter, rehab)? @ -No Was there de-escalation of care discussed even if they declined (Discuss DNR or withdrawal of care, Hospice)? DNR status @ -No What co-morbidities impacted this encounter? (DM, HTN, Smoking, COPD, CAD, Cancer, CVA, ARF, Chemo, Hep., AIDS, mental health diagnosis, sleep apnea, morbid obesity)? @ -None Was patient admitted / discharged? Hospital course, mention meds given and route, prescriptions, significant lab abnormalities, going to OR and other pertinent info. @ -Patient presents with urticarial type rash, couple lesions do appear possible bug bites. Patient has no fever or constitutional symptoms otherwise. Patient will be treated with steroids and advised to return if worsening symptoms or fevers Undiagnosed new problem with uncertain prognosis? @ -No Drug Therapy requiring intensive monitoring for toxicity (Heparin, Nitro, Insulin, Cardizem)? @ -No Were any procedures done? @ -No Diagnosis/symptom? @ -Urticaria Acute, or Chronic, or Acute on Chronic? @ -Acute Uncomplicated (without systemic symptoms) or Complicated (systemic symptoms)? @ -Default Side effects of treatment? @ -No Exacerbation, Progression, or Severe Exacerbation? @ -No Poses a threat to life or bodily function? How? (Chest pain, [place], [place], pneumonia, PE, COPD, DKA, ARF, appy, cholecystitis, CVA, Diverticulitis, Homicidal, Suicidal, threat to staff... and all critical care pts) @ -No Disposition Clinical Impression: Urticaria Disposition: HOME SELF-CARE Condition: Stable Instructions (If sedation given, give patient instructions): Urticaria (ED), Insect Bite or Sting (ED) Additional Instructions: Prescription sent to pharmacy. Please do follow-up with primary care physician in the next day or 2 for recheck. Return for fever, increased rash or redness, illness, chills, worsening symptoms or other concerns. Over [id number] Benadryl or Claritin for the next week. Wash all bedding and clothing in hot soapy water. Avoid hot or warm showers, take cool showers only and quick Prescriptions: predniSONE [Deltasone] 2 tab PO DAILY #8 tab Is patient prescribed a controlled substance at d/c from ED?: No Referrals: Dulce Wynne MD [Primary Care Provider] - 1-2 days Time of Disposition: 10:44
[2023-06-06] MEDS: predniSONE 20 MG TAB PO STA (11:11)
[2023-06-06] MEDS: LORATADINE 10 MG TAB PO STA (11:11)
[2023-06-06 11:35] VITALS: BP 131/89; PULSE 92; TEMP 98.1
== END 2023-06-06 11:18 | disposition home or self-care (01) ==
LOC: EC 08:46
DX: L50.9 Urticaria, unspecified (principal); J45.909 Unspecified asthma, uncomplicated; K21.9 Gastro-esophageal reflux disease without esophagitis; Z87.891 Personal history of nicotine dependence; Z79.899 Other long term (current) drug therapy; Z79.51 Long term (current) use of inhaled steroids; Z88.2 Allergy status to sulfonamides; Z88.1 Allergy status to other antibiotic agents
CPT/HCPCS: 99282; J7512

== ENCOUNTER → 2023-09-18 | Outpatient (CLI) | payer OTHER, MEDICAID ==
[2023-09-18 08:38] VITALS: BP 128/90; PULSE 86; RESP 18
--- NOTE | 2023-09-18 13:26 | P.PAINPG ---
PQRS Measure Charge Sheet Comment: HISTORY OF PRESENT ILLNESS: A 32 yr old presents today w severe and chronic thoracolumbar pain secondary to DDD, spondylosis and facet arthropathy without myelopathy for evaluation. Pt states pain level is provoked at 6 /10 in intensity, constant, localized L of center of the thoracic spine, predominantly axial and burning in character without shooting pain. Pain is provoked by bending, lifting. Pain is alleviated by PT x 6 wks which ended in Mar 2023, use of massage chair at home, chiropractic treatments weekly x 2 mo in Oct 2022, physician guided home exercises 5 times weekly since Oct 2022, medications, Lidoderm, resting and rest. Oswestry axial pain score of 16. Inteventional procedures include JORGE ALBERTO T8-9 x1, L RFA T8-T10 (Feb 2023), L TPIs T7-T12 x1 Medications include [place], Tyl, Valium, NSAIDs, Lidoderm REVIEW OF ORGAN SYSTEMS: CONSTITUTIONAL: No fevers or chills. No recent weight loss. NEUROLOGICAL: + numbness and tingling along the distal extremities. No seizure disorders or headaches. MUSCULOSKELETAL: + pain PSYCHIATRIC: Denies current depression or suicidal thoughts. Physical Examinations : Constitutional : Cooperative , not in acute distress . Neurologic : Cranial nerve II to XII intact. No focal neurological deficits. Psychiatric : alert & oriented x 3. Matching mood & appropriate affect. Judgment & insight intact. Musculoskeletal : Cervical Spine Motor strength in the deltoid and biceps: Normal right side. Normal Left side Motor strength biceps and the wrist extensors: Normal right side . Normal left side Motor strength in the triceps muscle: Normal right side. Normal left side Deep tendon reflexes: Normal at the biceps. Normal at Brachioradialis. Normal at triceps Vertebral body tenderness to deep palpation over Cervical facet loading test: positive bilaterally Spurling test: positive bilaterally Neck distraction test: positive bilaterally Terry sign: positive bilaterally Thoracic spine Facet loading test positive Taut bands w twitch response over L T7-T11 Lumbar spine Motor strength lower extremities ,thigh and legs 5/5 Right side , 5/5 Left side Deep tendon reflexes : Normal Knee Jerk. Normal Ankle Jerk Vertebral body tenderness over Lainez Test positive Lumbar facet Loading Test: positive Right / positive Left Range of motion of the lumbar spine Flexion 30 degrees, extension 10 degrees Straight Leg Raise test: Left/ Right positive at degree Luis test: positive right / positive left. Severe tenderness over the Sacroiliac joint on the Right / Left sides Gaenslen test: positive bilaterally Seated flexion test: positive bilaterally. Sacral spine : Severe tenderness over the Sacroiliac joint: right side / left side Range of motion: Flexion of the lumbar spine <60 degrees Range of motion: Extension of the lumbar spine <20 degrees Gaenslen's Test positive Christopher's Test positive Luis test: positive right side / left side Thigh Thrust Test Sacral Thrust Test Imaging: Non contrast of the thoracic spine from 10/25/21 reviewed Assessment/ Plan : Thoracic T9 fracture Recommendation of L TPI T7-T12 #2. May need a series of injections for optimal pain relief. Risks, benefits of procedure discussed and pt verbalized understanding. Protocol for discontinuation/ continuation of medications sukhdeep procedure discussed. All questions answered. I have spent greater than 30 minutes on patient care today. Dr Benavides was available by phone for the evaluation of this patient. The time was used to review the medical records including relevant urine studies and Prescription history (MAPs), review of the available imaging, evaluation and examination of the patient, coordination of care with the medical staff and if applicable referring physicians, as well as creation of the medical record PQRS Narrative: Hx Alcohol Use (MH) No Home Medications: Ambulatory Orders Omeprazole [PriLOSEC] 40 mg PO QAM 11/27/21 Albuterol Inhaler [Ventolin Hfa Inhaler] 2 puff INHALATION RT-Q4H PRN 01/27/23 Fluticasone Propionate 110 Mcg [Flovent 110 Mcg Inhaler] 2 puff INHALATION RT- BID PRN 01/27/23 HYDROcodone/APAP 7.5-325MG [[place] 7.5-325] 1 tab PO Q6H PRN 01/27/23 Naproxen [EC-Naprosyn] 500 mg PO BID PRN 01/27/23 Cyclobenzaprine [Flexeril] 10 mg PO Q8H PRN 30 Days #60 tab 05/06/23 predniSONE [Deltasone] 2 tab PO DAILY #8 tab 06/06/23 Controlled Substance Measures - Controlled Substance Measures Is patient prescribed a controlled substance at discharge?: No
== END ==
LOC: PNWHC3 08:25
PROVIDERS: ATTEND Specialist
DX: S22.079A Unspecified fracture of T9-T10 vertebra, initial encounter for closed fracture (principal); Z88.2 Allergy status to sulfonamides; Z88.8 Allergy status to other drugs, medicaments and biological substances; X58.XXXA Exposure to other specified factors, initial encounter
CPT/HCPCS: 99211

== ENCOUNTER 2023-09-29 09:35 | Emergency (ER) | payer OTHER, MEDICAID ==
[2023-09-29] MEDS: PROPARACAINE 0.5% OPHTH DROPS 15 ML BTL LEFT EYE STA (10:07)
[2023-09-29] MEDS: FLUORESCEIN STRIPS 1 MG STRIP LEFT EYE ONE (10:07)
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
[2023-09-29 11:25] VITALS: BP 136/86; PULSE 96; RESP 20; TEMP 98.1
== END 2023-09-29 11:25 | disposition home or self-care (01) ==
LOC: EC 09:35
DX: S05.02XA Injury of conjunctiva and corneal abrasion without foreign body, left eye, initial encounter (principal); Z87.891 Personal history of nicotine dependence; Z88.1 Allergy status to other antibiotic agents; Z88.2 Allergy status to sulfonamides; W45.8XXA Other foreign body or object entering through skin, initial encounter
CPT/HCPCS: 99283

== ENCOUNTER 2023-10-07 08:27 | Day surgery (SDC) | payer OTHER, MEDICAID ==
[2023-10-07] MEDS ORDERED: LACTATED RINGERS 1,000 ML IV SCH (08:39)
[2023-10-07 08:45] VITALS: RESP 18; TEMP 97.6
[2023-10-07] MEDS ORDERED: ROPIVACAINE 5MG/ML 20ML VIAL ONE (09:23)
[2023-10-07] MEDS ORDERED: methylPREDNISolone ACETATE 40 MG/ML 1 ML VIAL ONE (09:23)
--- NOTE | 2023-10-07 09:30 | P.PCN ---
Date of Procedure: 10/07/23 Procedure(s) Performed: Procedure= trigger point injections left thoracic paraspinal muscles , 4 on the left side from T7 to T12 Preoperative diagnosis= 1-myofascial pain syndrome Thoracic paraspinal muscles 2-thoracic degenerative disc disease 3-Thoracic facet arthropathy Postoperative diagnosis=Same as preop Diagnosis . Complication = none Condition= stable Anesthesia=none Indication for the procedure= patient complaining of left side mid back pain , examination was positive for multiple trigger point in the Left thoracic paraspinal muscles and patient diagnosed with myofascial pain syndrome and is here to have trigger point injections Description of the procedure= procedure risk and benefits discussed with the patient, including but not limited, risk of infection and bleeding, and ALLERGIC reaction to the medication and not complete pain relief and patient agreed with the preceding patient taken to the operating room, placed in sitting position or standard monitors applied to the patient then after induction of anesthesia back prepped with chlorhexidine 3 times , then under sterile technique each of the trigger point that was marked in the preop holding area 4 on the left sidethoracic paraspinal muscles, each one of them injected with the 2 mL of the mixture of ropivacaine 0.5% 8 ML mixed with 40 mg of Depo-Medrol ,and 2 mL of the mixture injected at each trigger point after negative aspiration, using 25- gauge needle, injection done after negative aspiration under was no paresthesia during the injection patient tolerated the procedure well without any complications and he will follow up in the pain clinic in a few weeks.
[2023-10-07 09:35] VITALS: BP 122/80; PULSE 80
== END 2023-10-07 09:49 | disposition home or self-care (01) ==
LOC: ORPAIN 08:27
PROVIDERS: ATTEND Specialist
DX: M79.18 Myalgia, other site (principal); M51.34 Other intervertebral disc degeneration, thoracic region; M47.814 Spondylosis without myelopathy or radiculopathy, thoracic region; Z88.2 Allergy status to sulfonamides; Z88.1 Allergy status to other antibiotic agents
CPT/HCPCS: 20553; J2795; J1010

== ENCOUNTER → 2023-11-05 | Outpatient (CLI) | payer OTHER, MEDICAID ==
[2023-11-05 09:15] VITALS: BP 123/70; PULSE 99; RESP 17
--- NOTE | 2023-11-05 14:47 | P.PAINPG ---
PQRS Measure Charge Sheet Comment: HISTORY OF PRESENT ILLNESS: A 33 yr old presents today w severe and chronic thoracolumbar pain secondary to DDD, spondylosis and facet arthropathy without myelopathy for evaluation s/p L thoracic TPIs #2. Pt state she experienced >50% pain relief x 2 wks s/p procedure. Pt states pain level is provoked at 6 /10 in intensity, constant, localized L of center of the thoracic spine, predominantly axial and burning in character without shooting pain. Pain is provoked by bending, lifting. Pain is alleviated by PT x 6 wks which ended in Mar 2023, use of massage chair at home, chiropractic treatments weekly x 2 mo in Oct 2022, physician guided home exercises 5 times weekly since Oct 2022, medications, Lidoderm, resting and rest. Oswestry axial pain score of 16. Inteventional procedures include JORGE ALBERTO T8-9 x1, L RFA T8-T10 (Feb 2023), L TPIs T7-T12 x2 (Sep 2023) Medications include [place], Tyl, Valium, NSAIDs, Lidoderm REVIEW OF ORGAN SYSTEMS: CONSTITUTIONAL: No fevers or chills. No recent weight loss. NEUROLOGICAL: + numbness and tingling along the distal e xtremities. No seizure disorders or headaches. MUSCULOSKELETAL: + pain PSYCHIATRIC: Denies current depression or suicidal thoughts. Physical Examinations : Constitutional : Cooperative , not in acute distress . Neurologic : Cranial nerve II to XII intact. No focal neurological deficits. Psychiatric : alert & oriented x 3. Matching mood & appropriate affect. Judgment & insight intact. Musculoskeletal : Cervical Spine Motor strength in the deltoid and biceps: Normal right side. Normal Left side Motor strength biceps and the wrist extensors: Normal right side . Normal left side Motor strength in the triceps muscle: Normal right side. Normal left side Deep tendon reflexes: Normal at the biceps. Normal at Brachioradialis. Normal at triceps Vertebral body tenderness to deep palpation over Cervical facet loading test: positive bilaterally Spurling test: positive bilaterally Neck distraction test: positive bilaterally Terry sign: positive bilaterally Thoracic spine Facet loading test positive Taut bands w twitch response over L T7-T11 Lumbar spine Motor strength lower extremities ,thigh and legs 5/5 Right side , 5/5 Left side Deep tendon reflexes : Normal Knee Jerk. Normal Ankle Jerk Vertebral body tenderness over Lainez Test positive Lumbar facet Loading Test: positive Right / positive Left Range of motion of the lumbar spine Flexion 30 degrees, extension 10 degrees Straight Leg Raise test: Left/ Right positive at degree Luis test: positive right / positive left. Severe tenderness over the Sacroiliac joint on the Right / Left sides Gaenslen test: positive bilaterally Seated flexion test: positive bilaterally. Sacral spine : Severe tenderness over the Sacroiliac joint: right side / left side Range of motion: Flexion of the lumbar spine <60 degrees Range of motion: Extension of the lumbar spine <20 degrees Gaenslen's Test positive Christopher's Test positive Luis test: positive right side / left side Thigh Thrust Test Sacral Thrust Test Imaging: Non contrast of the thoracic spine from 10/25/21 reviewed Assessment/ Plan : Thoracic T9 fracture Recommendation of L TPI T7-T12 #3 and PT integrated w therapeutic massage M54.14. May need a series of injections for optimal pain relief. Risks, benefits of procedure discussed and pt verbalized understanding. Protocol for discontinuation/ continuation of medications sukhdeep procedure discussed. All questions answered. I have spent greater than 30 minutes on patient care today. Dr Benavides was available by phone for the evaluation of this patient. The time was used to review the medical records including relevant urine studies and Prescription history (MAPs), review of the available imaging, evaluation and examination of the patient, coordination of care with the medical staff and if applicable referring physicians, as well as creation of the medical record PQRS Narrative: Hx Alcohol Use (MH) No Home Medications: Ambulatory Orders Omeprazole [PriLOSEC] 40 mg PO QAM PRN 11/27/21 Controlled Substance Measures - Controlled Substance Measures Is patient prescribed a controlled substance at discharge?: No
== END ==
LOC: PNWHC3 08:42
PROVIDERS: ATTEND Specialist
DX: S22.079A Unspecified fracture of T9-T10 vertebra, initial encounter for closed fracture (principal); Z88.8 Allergy status to other drugs, medicaments and biological substances; Z88.2 Allergy status to sulfonamides; X58.XXXA Exposure to other specified factors, initial encounter
CPT/HCPCS: 99211

== ENCOUNTER 2023-11-20 08:30 | Day surgery (SDC) | payer OTHER, MEDICAID ==
[2023-11-20] MEDS ORDERED: ROPIVACAINE 5MG/ML 20ML VIAL ONE (09:32)
[2023-11-20] MEDS ORDERED: methylPREDNISolone ACETATE 40 MG/ML 1 ML VIAL ONE (09:32)
== END 2023-11-20 10:00 ==
LOC: ORPAIN 08:30
PROVIDERS: ATTEND Pain Medicine Interventional Pain Medicine
DX: M79.18 Myalgia, other site (principal); Z79.899 Other long term (current) drug therapy; Z88.1 Allergy status to other antibiotic agents; Z88.2 Allergy status to sulfonamides
CPT/HCPCS: 20553

== ENCOUNTER 2024-01-25 19:56 | Emergency (ER) | payer OTHER, MEDICAID ==
--- NOTE | 2024-01-25 21:08 | ED ---
Headache HPI - General Source: patient Mode of arrival: ambulatory Limitations: no limitations - History of Present Illness MD Complaint: headache Onset/Timin -: days(s) Onset Description: gradual Location: diffuse Severity scale (1-10): 6 Quality: other (Pressure) Consistency: constant Improves With: nothing Worsens With: none Context: occurred at rest Treatments Prior to Arrival: Acetaminophen <Pedro Bloom - Last Filed: 01/25/24 21:05> <Jon Butler - Last Filed: 01/26/24 04:58> - General Chief Complaint: Headache Stated Complaint: Headache, High BP Time Seen by Provider: 01/25/24 20:11 - History of Present Illness Initial Comments: Quick note: This is a 33-year-old male presenting with headache, elevated blood pressure and elevated heart rate x 6 days. Patient states headache is diffuse described as pressure and constant. Patient states blood pressure and been abnormally high at times with heart rates going into the 120s for seemingly no reason. Patient endorses use of Tylenol with minimal relief. 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 Patient denies fever, chills, fatigue, body aches, neck pain, chest pain, dyspnea, abdominal pain, N/V/D, dizziness. (Pedro Bloom) 33-year-old male presenting with chief complaint of headache. Patient states that he has had a headache for the last 5 days. It is a diffuse headache. He is also concerned that his blood pressure and heart rate have been elevated recently. States that he has had previous issues with elevated blood pressure, currently not on any antihypertensives. He has been using Tylenol Motrin with minimal relief. No vision disturbances. No abdominal pain, nausea, vomiting, chest pain, difficulty breathing, fever, chills. Patient does have history of sleep apnea and does not currently use a CPAP machine (Jon Butler) - Related Data Home Medications Medication Instructions Recorded Confirmed Omeprazole [PriLOSEC] 40 mg PO QAM PRN 11/27/21 10/03/23 Allergies Allergy/AdvReac Type Severity Reaction Status Date / Time cefprozil [From Cefzil] Allergy Rash/Hives Verified 01/25/24 20:20 Sulfa (Sulfonamide Allergy Rash/Hives Verified 01/25/24 20:20 Antibiotics) Review of Systems ROS Other: All systems not noted in ROS Statement are negative. <MerlePedro - Last Filed: 01/25/24 21:05> ROS Other: All systems not noted in ROS Statement are negative. <Jon Butler - Last Filed: 01/26/24 04:58> ROS Statement: Those systems with pertinent positive or pertinent negative responses have been documented in the HPI. Past Medical History Past Medical History: Asthma, GERD/Reflux Additional Past Medical History / Comment(s): T9 compression fracture, September 22. Hemorrhoids. Rectal pain, perianal abcess lanced and drained. History of Any Multi-Drug Resistant Organisms: MRSA Date of last positivie culture/infection: 2017 MDRO Source:: "can't remember" Past Surgical History: Adenoidectomy, Orthopedic Surgery, Tonsillectomy Additional Past Surgical History / Comment(s): Plate and bolt in right hand, bolt in bilateral ankles. PAIN CLINIC PROCEDURES Past Anesthesia/Blood Transfusion Reactions: No Reported Reaction Past Psychological History: No Psychological Hx Reported Smoking Status: Former smoker Past Alcohol Use History: None Reported Past Drug Use History: None Reported - Past Family History Mother Family Medical History: No Reported History <MerlePedro - Last Filed: 01/25/24 21:05> General Exam Limitations: no limitations <Pedro Bloom - Last Filed: 01/25/24 21:05> General appearance: alert, in no apparent distress Head exam: Present: atraumatic, normocephalic, normal inspection Eye exam: Present: normal appearance, EOMI Neck exam: Present: normal inspection. Absent: meningismus Respiratory exam: Present: normal lung sounds bilaterally. Absent: respiratory distress, wheezes, rales, rhonchi, stridor Cardiovascular Exam: Present: regular rate, normal rhythm, normal heart sounds. Absent: systolic murmur, diastolic murmur, rubs, gallop, clicks Neurological exam: Present: alert, oriented X3 Expanded Eye Response: (4) open spontaneously Motor Response: (6) obeys commands Verbal Response: (5) oriented Gu[place]ro Total: 15 Psychiatric exam: Present: normal affect, normal mood Skin exam: Present: warm, dry <Jon Butler - Last Filed: 01/26/24 04:58> - General Exam Comments Initial Comments: Visual Physical Exam Vital signs reviewed General: Well-appearing, nontoxic, no acute distress. Head: Normocephalic, atraumatic Eyes: PERRLA, EOMI ENT: Airway patent Chest: Nonlabored breathing Skin: No visual rash, normal skin tone Neuro: Alert and oriented 3 Musculoskeletal: No gross abnormalities (Pedro Bloom) Course Vital Signs 01/25/24 01/25/24 01/26/24 20:18 23:51 00:47 Temperature 98.7 F 98.2 F 98.3 F Pulse Rate 112 H 90 84 Respiratory 20 17 18 Rate Blood Pressure 138/86 153/99 131/89 O2 Sat by Pulse 99 98 98 Oximetry Medical Decision Making <Pedro Bloom - Last Filed: 01/25/24 21:05> <Jon Butler - Last Filed: 01/26/24 04:58> - Medical Decision Making I completed the quick note portion of this chart signed BASIL [place] (Pedro Bloom) Was pt. sent in by a medical professional or institution ([facility], MACHINE WASHER, urgent care, hospital, or [facility]...) When possible be specific @ -No Did you speak to anyone other than the patient for history (EMS, parent, family, police, friend...)? What history was obtained from this source @ -No Did you review nursing and triage notes (agree or disagree)? Why? @ -I reviewed and agree with nursing and triage notes Were old charts reviewed (outside hosp., previous admission, EMS record, old EKG, old radiological studies, urgent care reports/EKG's, [facility] records)? Report findings @ -No old charts were reviewed Differential Diagnosis (chest pain, altered mental status, abdominal pain women, abdominal pain men, vaginal bleeding, weakness, fever, dyspnea, syncope, headache, dizziness, GI bleed, back pain, seizure, CVA, palpatations, mental health, musculoskeletal)? @ -MDM Differential Headache: Migraine, tension, cluster, carbon monoxide, central venous thrombosis, pension karma temporal arteritis, acute closure glaucoma, intercranial hemorrhage, mastoiditis, sinusitis, head injury this is not meant to be an all-inclusive list. EKG interpreted by me (3pts min.). @ -EKG shows sinus tachycardia ventricular rate 108. HI interval 167. QRS 85. QT 333. QTc 396. X-rays interpreted by me (1pt min.). @ -Chest x-ray shows no acute process CT interpreted by me (1pt min.). @ -None done U/S interpreted by me (1pt. min.). @ -None done What testing was considered but not performed or refused? (CT, X-rays, U/S, labs)? Why? @ -None What meds were considered but not given or refused? Why? @ -None Did you discuss the management of the patient with other professionals (professionals i.e. Dr., PA, MACHINE WASHER, lab, RT, psych nurse, geriatric social work professor, salesforce specialist, teacher, boating safety officer, case planner)? Give summary @ -No Was smoking cessation discussed for >3mins.? @ -No Was critical care preformed (if so, how long)? @ -No Were there social determinants of health that impacted care today? How? (Homelessness, low income, unemployed, alcoholism, drug addiction, transportation, low edu. Level, literacy, decrease access to med. care, longterm, rehab)? @ -No Was there de-escalation of care discussed even if they declined (Discuss DNR or withdrawal of care, Hospice)? DNR status @ -No What co-morbidities impacted this encounter? (DM, HTN, Smoking, COPD, CAD, Cancer, CVA, ARF, Chemo, Hep., AIDS, mental health diagnosis, sleep apnea, morbid obesity)? @ -None Was patient admitted / discharged? Hospital course, mention meds given and route, prescriptions, significant lab abnormalities, going to OR and other pertinent info. @ -33-year-old male presenting with chief complaint of headache. Patient has also had concerns with recent elevated blood pressure. Workup is initiated by triage and patient is later evaluated by myself. Vital signs are stable. EKG shows sinus tachycardia. Chest x-ray shows no acute process. Patient is given Toradol and on reassessment he reports improvement in his headache. He is educated on keeping a log of his blood pressures and is instructed to follow-up with his PCP regarding his blood pressure. Discharged. Follow-up with PCP. Report back to ER with any new or worsening symptoms. Discussed return parameters and answered all questions. Patient conveyed verbal understanding and agreed to the plan. I discussed this case in detail with my attending Dr. Guardado Undiagnosed new problem with uncertain prognosis? @ -No Drug Therapy requiring intensive monitoring for toxicity (Heparin, Nitro, Insulin, Cardizem)? @ -No Were any procedures done? @ -No Diagnosis/symptom? @ -Headache Acute, or Chronic, or Acute on Chronic? @ -Acute Uncomplicated (without systemic symptoms) or Complicated (systemic symptoms)? @ -Uncomplicated Side effects of treatment? @ -No Exacerbation, Progression, or Severe Exacerbation? @ -No Poses a threat to life or bodily function? How? (Chest pain, [place], [place], pneumonia, PE, COPD, DKA, ARF, appy, cholecystitis, CVA, Diverticulitis, Homicidal, Suicidal, threat to staff... and all critical care pts) @ -Unlikely (Jon Butler) Disposition <Pedro Bloom - Last Filed: 01/25/24 21:05> Is patient prescribed a controlled substance at d/c from ED?: No Time of Disposition: 00:40 <Jon Butler - Last Filed: 01/26/24 04:58> Clinical Impression: Headache Disposition: HOME SELF-CARE Condition: Good Instructions (If sedation given, give patient instructions): Acute Headache (ED) Additional Instructions: Follow-up with your PCP. Report back to ER with any new or worsening symptoms. Keep a journal of your blood pressures, you may try taking her blood pressure 3 times a day around breakfast, lunch, dinner. Try to keep the measurements around the same times each day. Referrals: Dulce Rankin, [facility] [Primary Care Provider] - 1-2 days
--- NOTE | 2024-01-25 22:17 | XR ---
EXAMINATION TYPE: XR chest 2V DATE OF EXAM: 01/25/2024 COMPARISON: NONE HISTORY: Palpitations. Hypertension. TECHNIQUE: Frontal and lateral views of the chest are obtained. FINDINGS: There is no focal air space opacity, pleural effusion, or pneumothorax seen. The cardiac silhouette size is within normal limits. The osseous structures are intact. IMPRESSION: No acute cardiopulmonary process. [facility], , 01/25/2024 10:14 PM
[2024-01-26] MEDS: KETOROLAC 15 MG/ML 1 ML VIAL IM STA (00:17)
[2024-01-26 00:53] VITALS: BP 131/89; PULSE 84; RESP 18; TEMP 98.3
== END 2024-01-26 00:47 | disposition home or self-care (01) ==
LOC: EC 19:56
CPT/HCPCS: 71046; 93005; 96372; 99284

== ENCOUNTER 2024-03-07 18:30 | Emergency (ER) | payer OTHER, MEDICAID ==
--- NOTE | 2024-03-07 18:47 | ED ---
Skin/Abscess/FB HPI - General Stated complaint: Rash/Face Time Seen by Provider: 03/07/24 18:45 Source: patient, RN notes reviewed - History of Present Illness Initial comments: This is a 33-year-old male with no significant past medical history presenting to the emergency room with referral from urgent care for complaint of a widespread rash that has been worsening since Friday. States that this rash is burning and pruritic and he is having associated sore throat. Patient's son had a similar type rash, and was diagnosed with hand/foot/and mouth, however states that his son's rash was not as severe. he denies use of new soaps, lotions, detergents. denies similar symptoms like this in the past. he denies fevers, chills, nausea, vomiting, diarrhea. - Related Data Home Medications Medication Instructions Recorded Confirmed Omeprazole [PriLOSEC] 40 mg PO QAM PRN 11/27/21 10/03/23 Previous Rx's Medication Instructions Recorded Ketorolac [Toradol] 10 mg PO Q8HR #15 tab 03/07/24 lidocaine HCL [Lidocaine HCl 5 ml MM Q3H PRN #100 ml 03/07/24 Viscous] Allergies Allergy/AdvReac Type Severity Reaction Status Date / Time cefprozil [From Cefzil] Allergy Rash/Hives Verified 03/07/24 19:01 Sulfa (Sulfonamide Allergy Rash/Hives Verified 03/07/24 19:01 Antibiotics) Review of Systems ROS Statement: Those systems with pertinent positive or pertinent negative responses have been documented in the HPI. ROS Other: All systems not noted in ROS Statement are negative. Past Medical History Past Medical History: Asthma, GERD/Reflux Additional Past Medical History / Comment(s): T9 compression fracture, September 22. Hemorrhoids. Rectal pain, perianal abcess lanced and drained. History of Any Multi-Drug Resistant Organisms: MRSA Date of last positivie culture/infection: 2016 MDRO Source:: "can't remember" Past Surgical History: Adenoidectomy, Orthopedic Surgery, Tonsillectomy Additional Past Surgical History / Comment(s): Plate and bolt in right hand, bolt in bilateral ankles. PAIN CLINIC PROCEDURES Past Anesthesia/Blood Transfusion Reactions: No Reported Reaction Past Psychological History: No Psychological Hx Reported Smoking Status: Former smoker Past Alcohol Use History: None Reported Past Drug Use History: None Reported - Past Family History Mother Family Medical History: No Reported History General Exam - General Exam Comments Initial Comments: Visual Physical Exam Vital signs reviewed General: Well-appearing, nontoxic, no acute distress. Head: Normocephalic, atraumatic Eyes: PERRLA, EOMI ENT: Airway patent Chest: Nonlabored breathing Skin: visual rash erythematous and scaling over the face/head/perioral, normal skin tone Neuro: Alert and oriented 3 Musculoskeletal: No gross abnormalities General appearance: alert, in no apparent distress Eye exam: Present: normal appearance, PERRL, EOMI. Absent: scleral icterus, conjunctival injection, periorbital swelling Expanded Mouth exam: Absent: normal external inspection Throat exam: other (posterior oroppharynx erythema, halo ulcerations, and petechia) Neck exam: Present: normal inspection. Absent: tenderness, meningismus, lymphadenopathy Respiratory exam: Present: normal lung sounds bilaterally. Absent: respiratory distress, wheezes, rales, rhonchi, stridor Cardiovascular Exam: Present: regular rate, normal rhythm, normal heart sounds. Absent: systolic murmur, diastolic murmur, rubs, gallop, clicks GI/Abdominal exam: Present: soft, normal bowel sounds. Absent: distended, tenderness, guarding, rebound, rigid Extremities exam: Present: normal inspection, full ROM, normal capillary refill. Absent: tenderness, pedal edema, joint swelling, calf tenderness Skin exam: Present: rash (Patient examined in the presence of ulcers and erythematous edema and a cutaneous lesion with a margin visible surrounded by erythematous halo on the hands. Maculopapular rash over the head, perioral, chest, hands, feet.) Course Vital Signs 03/07/24 03/07/24 19:01 19:52 Temperature 98.5 F Pulse Rate 106 H 89 Respiratory 20 16 Rate Blood Pressure 120/85 123/85 O2 Sat by Pulse 96 97 Oximetry Medical Decision Making - Medical Decision Making Was pt. sent in by a medical professional or institution (, PA, [employer], urgent care, hospital, or custodial...) When possible be specific @ -Patient was instructed by urgent care reports emergency department for further evaluation Did you speak to anyone other than the patient for history (EMS, parent, family, police, friend...)? What history was obtained from this source @ -No Did you review nursing and triage notes (agree or disagree)? Why? @ -I reviewed and agree with nursing and triage notes Were old charts reviewed (outside hosp., previous admission, EMS record, old EKG, old radiological studies, urgent care reports/EKG's, custodial records)? Report findings @ -No old charts were reviewed Differential Diagnosis (chest pain, altered mental status, abdominal pain women, abdominal pain men, vaginal bleeding, weakness, fever, dyspnea, syncope, headache, dizziness, GI bleed, back pain, seizure, CVA, palpatations, mental health, musculoskeletal)? @ -Contact dermatitis, izcs-kaxk-hnw-mouth, eczema, psoriasis, this list is not all inclusive EKG interpreted by me (3pts min.). @ -none X-rays interpreted by me (1pt min.). @ -None done CT interpreted by me (1pt min.). @ -None done U/S interpreted by me (1pt. min.). @ -None done What testing was considered but not performed or refused? (CT, X-rays, U/S, labs)? Why? @ -None What meds were considered but not given or refused? Why? @ -None Did you discuss the management of the patient with other professionals (professionals i.e. , PA, [employer], lab, RT, psych nurse, social media community manager, pumping station supervisor, teacher, hearing officer, assistant case manager)? Give summary @ -No Was smoking cessation discussed for >3mins.? @ -No Was critical care preformed (if so, how long)? @ -No Were there social determinants of health that impacted care today? How? (Homelessness, low income, unemployed, alcoholism, drug addiction, transportation, low edu. Level, literacy, decrease access to med. care, custodial, rehab)? @ -No Was there de-escalation of care discussed even if they declined (Discuss DNR or withdrawal of care, Hospice)? DNR status @ -No What co-morbidities impacted this encounter? (DM, HTN, Smoking, COPD, CAD, Cancer, CVA, ARF, Chemo, Hep., AIDS, mental health diagnosis, sleep apnea, morbid obesity)? @ -None Was patient admitted / discharged? Hospital course, mention meds given and route, prescriptions, significant lab abnormalities, going to OR and other pertinent info. @ -Discharge. 33-year-old male with rash. Rash is consistent with rdes-whyj-lou-mouth disease EXTR lesions perioral, within the oral mucosa, on the palms and soles. Patient is provided with GI cocktail for symptoms of throat and mouth pain. Additionally, I sent a prescription for Toradol and viscous lidocaine. discussed with Dr. Treviño Undiagnosed new problem with uncertain prognosis? @ -No Drug Therapy requiring intensive monitoring for toxicity (Heparin, Nitro, Insulin, Cardizem)? @ -No Were any procedures done? @ -No Diagnosis/symptom? @ -hand, foot, and mouth Acute, or Chronic, or Acute on Chronic? @ -acute Uncomplicated (without systemic symptoms) or Complicated (systemic symptoms)? @ -uncomplicated Side effects of treatment? @ -No Exacerbation, Progression, or Severe Exacerbation? @ -No Poses a threat to life or bodily function? How? (Chest pain, [place], [place], pneumonia, PE, COPD, DKA, ARF, appy, cholecystitis, CVA, Diverticulitis, Homicidal, Suicidal, threat to staff... and all critical care pts) @ -No Disposition Clinical Impression: Hand, foot and mouth disease Disposition: HOME SELF-CARE Condition: Good Instructions (If sedation given, give patient instructions): Hand, Foot, and Mouth Disease (ED) Additional Instructions: Please return to the Emergency Department if symptoms worsen or any other concerns. Take Toradol as needed for pain and use oral lidocaine as directed. You may take Tylenol with Toradol however do not combine Toradol with ibuprofen/Motrin. Use of cool liquids may alleviate throat pain as well. Prescriptions: lidocaine HCL [Lidocaine HCl Viscous] 5 ml MM Q3H PRN #100 ml PRN Reason: Pain Ketorolac [Toradol] 10 mg PO Q8HR #15 tab Is patient prescribed a controlled substance at d/c from ED?: No Referrals: Dulce Wynne MD [Primary Care Provider] - 1-2 days Time of Disposition: 19:34
[2024-03-07 19:05] VITALS: TEMP 98.5
[2024-03-07] MEDS: methylPREDNISolone SOD SUCCI 125 MG/2 ML VIAL IM ONE (19:45)
[2024-03-07] MEDS: MAG HYDROX/AL HYDROX/SIMETH 30 ML, HYOSCYAMINE ELIXIR 10 ML, LIDOCAINE VISCOUS 2% 10 ML PO STA (19:45)
[2024-03-07] MEDS: IBUPROFEN 800 MG TAB PO STA (19:46)
[2024-03-07 19:56] VITALS: BP 123/85; PULSE 89; RESP 16
== END 2024-03-07 19:52 | disposition home or self-care (01) ==
LOC: EC 18:30
DX: B08.4 Enteroviral vesicular stomatitis with exanthem (principal); Z88.2 Allergy status to sulfonamides; Z88.8 Allergy status to other drugs, medicaments and biological substances; Z87.891 Personal history of nicotine dependence
CPT/HCPCS: 99283; 96372; J2919

== ENCOUNTER 2024-04-18 12:33 | Emergency (ER) | payer OTHER ==
--- NOTE | 2024-04-18 12:53 | ED ---
Fall HPI - General Source: patient, RN notes reviewed Mode of arrival: ambulatory Limitations: no limitations - History of Present Illness MD Complaint: fall Onset/Timin -: days(s) Place Fall Occurred: street Loss of Consciousness: none Prolonged Down Time?: no Symptoms Prior to Fall: none <Pedro Bloom - Last Filed: 04/18/24 12:51> - General Source: patient, RN notes reviewed Mode of arrival: ambulatory Limitations: no limitations <Zac Hyman - Last Filed: 04/18/24 15:45> - General Stated Complaint: fell bilat rib pain Time Seen by Provider: 04/18/24 12:48 - History of Present Illness Initial Comments: Quick note: This is a 33-year-old male presenting with bilateral rib pain following fall yesterday. Patient states he was shoveling snow when he slipped on the ice, falling forward and striking his chest on the concrete. Denies striking his head, loss of consciousness, headache, neck pain. Patient states he is concerned for rib fracture. Endorses some pain with inhalation but denies worsening dyspnea or hemoptysis. (Pedro Bloom) 33-year-old male presents emergency department chief complaint of a fall. Patient states that he was outside showing some when he slipped on ice and fell forward striking his chest. Patient denies any head injury no loss conscious denies any head neck or back pain no extremity injuries. He states he only has pain in his ribs and is concerned about possible fracture. Patient's pain is worse with movement. Patient denies any abdominal pain no other complaints. (Zac Hyman) - Related Data Home Medications Medication Instructions Recorded Confirmed Omeprazole [PriLOSEC] 40 mg PO QAM PRN 11/27/21 10/03/23 Previous Rx's Medication Instructions Recorded Ketorolac [Toradol] 10 mg PO Q8HR #15 tab 03/07/24 lidocaine HCL [Lidocaine HCl 5 ml MM Q3H PRN #100 ml 03/07/24 Viscous] Allergies Allergy/AdvReac Type Severity Reaction Status Date / Time cefprozil [From Cefzil] Allergy Rash/Hives Verified 04/18/24 13:04 Sulfa (Sulfonamide Allergy Rash/Hives Verified 04/18/24 13:04 Antibiotics) Review of Systems ROS Other: All systems not noted in ROS Statement are negative. <Pedro Bloom - Last Filed: 04/18/24 12:51> ROS Other: All systems not noted in ROS Statement are negative. <Zac Hyman Andrew - Last Filed: 04/18/24 15:45> ROS Statement: Those systems with pertinent positive or pertinent negative responses have been documented in the HPI. Past Medical History Past Medical History: Asthma, GERD/Reflux Additional Past Medical History / Comment(s): T9 compression fracture, September 22. Hemorrhoids. Rectal pain, perianal abcess lanced and drained. History of Any Multi-Drug Resistant Organisms: MRSA Date of last positivie culture/infection: 2016 MDRO Source:: "can't remember" Past Surgical History: Adenoidectomy, Orthopedic Surgery, Tonsillectomy Additional Past Surgical History / Comment(s): Plate and bolt in right hand, bolt in bilateral ankles. PAIN CLINIC PROCEDURES Past Anesthesia/Blood Transfusion Reactions: No Reported Reaction Past Psychological History: No Psychological Hx Reported Smoking Status: Former smoker Past Alcohol Use History: None Reported Past Drug Use History: None Reported - Past Family History Mother Family Medical History: No Reported History <Pedro Bloom - Last Filed: 04/18/24 12:51> General Exam <Pedro Bloom - Last Filed: 04/18/24 12:51> Limitations: no limitations General appearance: alert, in no apparent distress Head exam: Present: atraumatic, normocephalic, normal inspection Eye exam: Present: normal appearance, PERRL, EOMI. Absent: scleral icterus, conjunctival injection, periorbital swelling ENT exam: Present: normal exam, mucous membranes moist Neck exam: Present: normal inspection, full ROM. Absent: tenderness, meningis mus, lymphadenopathy Respiratory exam: Present: normal lung sounds bilaterally, chest wall tenderness. Absent: respiratory distress, wheezes, rales, rhonchi, stridor Cardiovascular Exam: Present: regular rate, normal rhythm, normal heart sounds. Absent: systolic murmur, diastolic murmur, rubs, gallop, clicks <Zac Hyman Andrew - Last Filed: 04/18/24 15:45> - General Exam Comments Initial Comments: Visual Physical Exam Vital signs reviewed General: Well-appearing, nontoxic, no acute distress. Head: Normocephalic, atraumatic Eyes: PERRLA, EOMI ENT: Airway patent Chest: Nonlabored breathing Skin: No visual rash, normal skin tone Neuro: Alert and oriented 3 Musculoskeletal: No gross abnormalities (Pedro Bloom) Course Vital Signs 04/18/24 04/18/24 13:04 14:26 Temperature 98.3 F Pulse Rate 95 68 Respiratory 18 16 Rate Blood Pressure 118/80 130/89 O2 Sat by Pulse 97 98 Oximetry Medical Decision Making <Pedro Bloom - Last Filed: 04/18/24 12:51> <Zac Hyman - Last Filed: 04/18/24 15:45> - Medical Decision Making I completed the quick note portion of this chart signed BASIL [place] (Pedro Bloom) Was pt. sent in by a medical professional or institution ([facility], [employer], urgent care, hospital, or group home...) When possible be specific @ -No Did you speak to anyone other than the patient for history (EMS, parent, family, police, friend...)? What history was obtained from this source @ -No Did you review nursing and triage notes (agree or disagree)? Why? @ -I reviewed and agree with nursing and triage notes Were old charts reviewed (outside hosp., previous admission, EMS record, old EKG, old radiological studies, urgent care reports/EKG's, group home records)? Report findings @ -No old charts were reviewed Differential Diagnosis (chest pain, altered mental status, abdominal pain women, abdominal pain men, vaginal bleeding, weakness, fever, dyspnea, syncope, headache, dizziness, GI bleed, back pain, seizure, CVA, palpatations, mental health, musculoskeletal)? @ -Fall, rib contusion, rib fracture EKG interpreted by me (3pts min.). @ -None X-rays interpreted by me (1pt min.). @ -Chest x-ray with rib series bilaterally showing anterior left rib fracture seventh CT interpreted by me (1pt min.). @ -None done U/S interpreted by me (1pt. min.). @ -None done What testing was considered but not performed or refused? (CT, X-rays, U/S, labs)? Why? @ -None What meds were considered but not given or refused? Why? @ -None Did you discuss the management of the patient with other professionals (professionals i.e. Dr., PA, [employer], lab, RT, psych nurse, social media content manager, passenger coach driver, teacher, flight communications officer, casework manager)? Give summary @ -No Was smoking cessation discussed for >3mins.? @ -No Was critical care preformed (if so, how long)? @ -No Were there social determinants of health that impacted care today? How? (Homelessness, low income, unemployed, alcoholism, drug addiction, transportation, low edu. Level, literacy, decrease access to med. care, assisted, rehab)? @ -No Was there de-escalation of care discussed even if they declined (Discuss DNR or withdrawal of care, Hospice)? DNR status @ -No What co-morbidities impacted this encounter? (DM, HTN, Smoking, COPD, CAD, Cancer, CVA, ARF, Chemo, Hep., AIDS, mental health diagnosis, sleep apnea, morbid obesity)? @ -None Was patient admitted / discharged? Hospital course, mention meds given and route, prescriptions, significant lab abnormalities, going to OR and other pertinent info. @ -[Discharge patient has seventh rib fracture no pneumothorax patient discharged in stable condition with analgesics. Incentive spirometer Undiagnosed new problem with uncertain prognosis? @ -No Drug Therapy requiring intensive monitoring for toxicity (Heparin, Nitro, Insulin, Cardizem)? @ -No Were any procedures done? @ -No Diagnosis/symptom? @ -Rib fracture left Acute, or Chronic, or Acute on Chronic? @ -Acute Uncomplicated (without systemic symptoms) or Complicated (systemic symptoms)? @ -Uncomplicated Side effects of treatment? @ -No Exacerbation, Progression, or Severe Exacerbation? @ -No Poses a threat to life or bodily function? How? (Chest pain, [place], [place], pneumonia, PE, COPD, DKA, ARF, appy, cholecystitis, CVA, Diverticulitis, Homicidal, Suicidal, threat to staff... and all critical care pts) @ -No (Zac Hyman) Disposition <Pedro Bloom - Last Filed: 04/18/24 12:51> Is patient prescribed a controlled substance at d/c from ED?: No Time of Disposition: 13:57 <Zac Hyman - Last Filed: 04/18/24 15:45> Clinical Impression: Fall, Left rib fracture Disposition: HOME SELF-CARE Condition: Stable Instructions (If sedation given, give patient instructions): Rib Fracture (ED) Additional Instructions: Nondisplaced left seventh rib fracture. Please return to the Emergency Department if symptoms worsen or any other concerns. Referrals: Dulce Wynne MD [Primary Care Provider] - 1-2 days
[2024-04-18 13:07] VITALS: TEMP 98.3
--- NOTE | 2024-04-18 13:41 | XR ---
EXAMINATION TYPE: XR ribs bilat w pa chest xray DATE OF EXAM: 04/18/2024 1:23 PM COMPARISON: None. CLINICAL INDICATION: Male, 33 years old with history of Fall, bilateral rib pain, pain TECHNIQUE: AP chest with two-view bilateral ribs FINDINGS: Heart size is normal. Pulmonary vasculature is normal. Lungs are clear. No pneumothorax thorax is oliver dent. On single image there is a subtle lucency in the anterior left seventh rib suspicious for a nondispla aminah fracture. No additional fractures identified IMPRESSION: 1. Anterior left seventh rib fracture [facility], , 04/18/2024 1:39 PM
[2024-04-18] MEDS: ACET/COD 300 MG/30 MG STARTER PACK 6 TAB BTL PO STA (14:24)
[2024-04-18 14:27] VITALS: BP 130/89; PULSE 68; RESP 16
== END 2024-04-18 14:27 | disposition home or self-care (01) ==
LOC: EC 12:33
DX: S22.32XA Fracture of one rib, left side, initial encounter for closed fracture (principal); Z88.2 Allergy status to sulfonamides; Z88.8 Allergy status to other drugs, medicaments and biological substances; Z87.891 Personal history of nicotine dependence; W00.0XXA Fall on same level due to ice and snow, initial encounter; Y93.H1 Activity, digging, shoveling and raking
CPT/HCPCS: 71111; 99283

== ENCOUNTER → 2024-04-22 | Outpatient (CLI) | payer MEDICAID ==
[2024-04-22 12:34] LABS: INR 0.9 (<1.2); Partial Thromboplastin Time 22.4 sec (22.0-30.0); Prothrombin Time 9.9 sec (10.0-12.5)
[2024-04-22 15:08] LABS: ALT 53 U/L (10-49); AST 27 U/L (14-35); Albumin 4.4 g/dL (3.8-4.9); Albumin/Globulin Ratio 1.83 Ratio (1.60-3.17); Alkaline Phosphatase 55 U/L (41-126); BUN/Creat Ratio 18.57 Ratio (12.00-20.00); Calcium 9.5 mg/dL (8.7-10.3); Carbon Dioxide 24.7 mmol/L (21.6-31.8); Chloride 106 mmol/L (96-109); Globulin 2.4 g/dL (1.6-3.3); Glucose 107 mg/dL (70-110); Potassium 4.5 mmol/L (3.5-5.5); Sodium 141 mmol/L (135-145); Total Bilirubin 0.3 mg/dL (0.3-1.2); Total Protein 6.8 g/dL (6.2-8.2)
[2024-04-22 15:36] LABS: HCT 40.8 % (39.6-50.0); HGB 13.8 g/dL (13.0-17.0); MCH 30.1 pg (27.0-32.0); MCHC 33.8 g/dL (32.0-37.0); MCV 89.1 FL (80.0-97.0); Mean Platelet Volume 10.7 FL (9.5-12.2); NRBC Per 100 WBC 0 X 10*3/uL (0.00-0.01); Platelet Count 267 X 10*3/uL (140-440); RBC 4.58 X 10*6/uL (4.40-5.60); RDW 11.8 % (11.5-14.5); WBC 5.77 X 10*3/uL (4.50-10.00)
== END | disposition home or self-care (01) ==
LOC: LABWHC1 11:08
PROVIDERS: ATTEND Neurological Surgery
DX: Z01.818 Encounter for other preprocedural examination (principal)
CPT/HCPCS: 36415; 80053; 85027; 85610; 85730